=== PATIENT | female | born 1975 | race Caucasian/White ===

== ENCOUNTER 2024-12-04 23:39 | Emergency (ER) | payer OTHER, SELFPAY ==
--- NOTE | ~2024-12-04 | CT_ITS ---
CLINICAL HISTORY: left sided abd pain - PT REPORTED IV CONTRAST ALLERGY CT Abdomen and Pelvis WO Contrast COMPARISON: None provided FINDINGS: Detail limited by artifacts. Diffusely hypodense liver consistent with hepatic steatosis. Hepatomegaly. Normal spleen. Normal kidneys. Normal adrenal glands. Normal pancreas. Status post cholecystectomy. No abnormal biliary dilation. Colonic diverticulosis without evidence of acute diverticulitis. No mucosal thickening. No evidence of obstruction. Status post partial distal colectomy. Normal appendix. Unremarkable bladder. Unremarkable uterus. No ascites. No pneumoperitoneum. No lymphadenopathy. No acute fracture. Degenerative changes in the spine. Chronic appearing T12 compression fracture. No abdominal aortic aneurysm. Elevation of the right hemidiaphragm. IMPRESSION: No acute findings. Nonemergent/incidental findings above. This document has been electronically signed by: Jose Monroy MD on 12/05/2024 04:14:57
[2024-12-04 23:43] VITALS: BP 142/88; PULSE 102; O2SAT 96
[2024-12-04 23:47] VITALS: BP 105/71; PULSE 108; RESP 20; TEMP 36.9; O2SAT 94; BMI 28.3
--- NOTE | 2024-12-05 00:14 | ED.ABDPAIN ---
HPI - Abdominal Pain General Chief Complaint: Abdominal Pain Stated Complaint: LFT SIDED ABD PAIN FROM HEAVILY DRINKING Time Seen by Provider: 12/04/24 23:51 History of Present Illness HPI narrative: Patient is a 49-year-old female with a history of alcohol use. Previous history of abdominal surgery. Previous history of colon cancer status post resection in the past. Had alcohol tonight. Then had abdominal pain on the left side. Worse over the last few hours. No chance of being . No fever no chills. No diaphoresis. Patient is from home. Related Data Previous Rx's ?Medication ?Instructions ?Recorded dicyclomine 20 mg tablet 20 mg PO TID #10 tabs 12/05/24 prochlorperazine maleate 10 mg 10 mg PO Q8H PRN nausea and 12/05/24 tablet (Compazine) vomiting #14 tabs Allergies Allergy/AdvReac Type Severity Reaction Status Date / Time ciprofloxacin Allergy Unknown Verified 12/04/24 23:50 haloperidol (From Haldol) AdvReac Agitated Verified 12/05/24 07:32 Review of Systems Review of Systems No fever no chills. Positive left-sided abdominal pain. Decreased appetite but no vomiting Yes all other systems are reviewed and are negative PMFSH Past Medical History Attestation statement: The following information was validated with the patient. Social History Social History Smoked in Last 30 Days: Yes Use of substances other than those prescribed or required for medical reasons: No Advance Directives: No Advance Directives Information Provided: Yes Patient : No Physical Exam ED Exam Exam: Appearance: Alert. Oriented X3. No acute distress. Eyes: Pupils equal, round and reactive to light. ENT: Pharynx normal. Neck: Normal inspection. Neck supple. No lymph nodes noted. No crepitus CVS: Normal heart rate and rhythm. Pulses normal. Normal S1 and S2 Respiratory: No respiratory distress. Breath sounds normal. No Wheezing. No rales Abdomen: Soft, mild left-sided abdominal pain. No rigidity. No distention. good BS x4 Skin: Skin warm and dry. Normal skin color. Normal skin turgor. Extremities: No lower extremity edema. Neurovascular intact to all extremities. No Lacerations. No Rash Neuro: Oriented X 3. No motor deficit. No sensory deficit. Moving all extermities. No slurred speech Vital Signs: Vital Signs - 24 hr 12/04/24 23:47 12/05/24 01:46 12/05/24 07:03 Temperature 98.5 F 98.3 F 98.9 F Pulse Rate 108 H 107 H 113 H Respiratory Rate 20 18 20 Blood Pressure 105/71 105/53 L 124/89 Pulse Oximetry 94 93 93 Oxygen Delivery Method Room Air Room Air Room Air BMI result Body Mass Index 28.3 Medical Decision Making Medical Decision Making [facility] Narrative: Patient presented today with having left-sided abdominal pain. Complaining of nausea. Had a history of having bowel obstruction has a history of colon cancer status post resection over 10 years ago. Had a question C diff at [facility] about a month ago but reports no diarrhea today. Patient's lipase is 23 there is no evidence for pancreatitis. LFTs are normal. Patient had a strong smell of alcohol. I did an alcohol level it was over 300. Patient denies any fever chills. Complains that she had an allergy to IV contrast. We then changed the CT to a noncontrast study. Currently in stable condition awaiting CT scan of the abdomen 7:16 AM 12/05/2024 (Dr. Jackie Alejandro, D.O.) patient with continued pain but her workup today has been reassuring. No evidence of sepsis. No evidence of anemia. She reports that she had severe pain when she was diagnosed with colon cancer and had normal imaging at that time. However, today, patient has no evidence of large mass in the colon and has been tolerating oral intake. She is still intoxicated but has been metabolizing overnight. She is tachycardic but very anxious. I think she is starting to withdraw from alcohol to be on a. We will medicate with Haldol, Benadryl and Dilaudid. I anticipate that she will be discharged to follow up with her cancer doctors in [place]. Discussed importance of follow-up and strict return precautions. Discharged in stable condition. Differential Diagnosis Differential Diagnoses: The differential diagnosis associated with the presentation includes Small-bowel obstruction, abscess, perforation, diverticulitis, EtOH Admission/Observation Consideration of admission/observation: Escalation of care including admission/observation considered Lab Data [facility] Lab Attestation statement: I reviewed the patient's lab results. 12/05/24 00:53 12/05/24 00:53 Labs: Lab Results 12/05/24 12/05/24 Range/Units 00:53 02:43 WBC 4.0 L (4.8-10.8) X10*3/uL RBC 3.53 L (4.20-5.50) X10*6/uL Hgb 11.0 L (12.0-16.0) g/dl Hct 32.6 L (37.0-47.0) % MCV 92.4 (80.0-98.0) fL MCH 31.2 (27.0-33.0) pg MCHC 33.7 (31.0-35.0) g/dl RDW 14.3 (11.0-16.0) % Plt Count 241 (160-400) X10*3/uL MPV 9.2 L (9.4-12.3) fL Immature Gran % (Auto) 0.0 (0.0-0.4) % Neut % (Auto) 30.1 L (45-73) % Lymph % (Auto) 55.4 H (20-40) % [place] % (Auto) 11.5 H (2-11) % Eos % (Auto) 2.0 (0-4) % Baso % (Auto) 1.0 (0-2) % Lymph # (Auto) 2.2 (1.2-4.9) X10*3/uL [place] # (Auto) 0.5 (0.1-1.2) X10*3/uL Eos # (Auto) 0.1 (0.0-0.4) X10*3/uL Baso # (Auto) 0.0 (0.0-0.2) X10*3/uL Abs Immat Gran (auto) 0.00 (0.00-0.03) X10*3/uL Absolute Neuts (auto) 1.2 L (2.0-8.3) x10*3/uL Absolute Nucleated RBC 0.000 (0.0-0.012) X10*3/uL Nucleated RBC % (auto) 0.0 (0.0-0.2) /100WBC Sodium 145 (135-145) mmol/L Potassium 4.7 (3.3-5.1) mmol/L Chloride 106 (96-108) mmol/L Carbon Dioxide 25 (22-29) mmol/L Anion Gap 19 (12-20) BUN 8 L (9-16) mg/dL Creatinine 0.68 (0.5-1.4) mg/dL Estim Creat Clear Calc 101.6 Estimated GFR > 60 Random Glucose 105 (60-115) mg/dL Calcium 8.8 (8.4-10.2) mg/dL Total Bilirubin 0.2 (0.0-1.0) mg/dL Direct Bilirubin < 0.2 (0.0-0.5) mg/dL AST 105 H (5-31) U/L ALT 44 H (0-31) U/L Alkaline Phosphatase 72 (39-117) U/L Total Protein 8.0 (6.5-8.0) g/dL Albumin 4.3 (3.5-5.0) g/dL Lipase 23 (8-78) U/L Beta HCG, Quant < 2 mIU/mL Urine Color Yellow Urine Appearance Clear Urine pH 5.5 (5.0-9.0) Ur Specific [place] 1.015 (1.005-1.025) Urine Protein Negative (Neg-Trace) mg/dL Urine Glucose (UA) Negative (Negative) mg/dL Urine Ketones Negative (Negative) mg/dL Urine Blood Negative (Negative) Urine Nitrite Negative (Negative) Ur Leukocyte Esterase Negative (Negative) Urine RBC 0-2 (0-2) /HPF Urine WBC 0-5 (0-5) /HPF Ur Squamous Epith Cells 3-5 (0-2) /HPF Urine Bacteria None Seen (None Seen) Hyaline Casts 0-2 (0-2) /LPF Ethyl Alcohol 312 H* mg/dL Medications Administered Discontinued Medications Generic Name Dose Route Start Last Admin Trade Name Freq PRN Reason Stop Dose Admin Hydromorphone HCl 0.5 mg 12/05/24 00:12 12/05/24 00:57 Hydromorphone Hcl 0.5 Mg/0.5 Ml Syringe IVPUSH 12/05/24 00:13 0.5 mg ONCE ONE Administration Protocol Hydromorphone HCl 0.5 mg 12/05/24 01:34 12/05/24 01:43 Hydromorphone Hcl 0.5 Mg/0.5 Ml Syringe IVPUSH 12/05/24 01:35 0.5 mg ONCE ONE Administration Protocol Sodium Chloride 1,000 mls @ 999 mls/hr 12/05/24 00:15 12/05/24 05:11 Ns IV 12/05/24 01:15 Infused .Q1H1M GLADYS Infusion Sodium Chloride 1,000 mls @ 999 mls/hr 12/05/24 00:15 12/05/24 05:53 Ns IV 12/05/24 01:15 Infused .Q1H1M GLADYS Infusion Ondansetron HCl 4 mg 12/05/24 00:12 12/05/24 00:57 Ondansetron Hcl 4 Mg/2 Ml Vial IVPUSH 12/05/24 00:13 4 mg ONCE ONE Administration Discharge Plan Discharge Clinical Impression: Alcohol intoxication, Acute bilateral lower abdominal pain Patient Disposition: Home, Self-Care Instructions: Abdominal Pain (ED) Additional Instructions: DIAGNOSIS & TREATMENT: You were seen in the Emergency Department for your abdominal pain. We performed laboratory work and a CT scan of your abdomen and pelvis which did not reveal any acute abnormalities that would explain your symptoms. FURTHER CARE: We have not found any emergent physical exam or lab abnormalities that would require admission to the hospital today. Many people who come to the ER with abdominal pain do not leave with a specific diagnosis at the end of their visit. In the Emergency Department we try to make sure that there is no emergent problem that needs surgery or antibiotics right now. This does not mean that your evaluation is complete--please be sure to follow up with your regular doctor as additional testing as an outpatient may be indicated Please be certain to drink plenty of fluids over the next several. You should advance your diet as tolerated. You may wish to start with the BRAT diet (bananas, rice, applesauce, toast). WHEN YOU SHOULD BE SEEN NEXT: Please follow-up with your oncologist in [place] within the next 2-3 days for reevaluation of your symptoms. WHEN TO RETURN TO THE ED: Monitor your symptoms closely and return to the emergency department immediately for any new/worsening symptoms, worsening abdominal pain, pain which changes location (particularly if it moved to the right lower quadrant), nausea, vomiting, blood in your stool, black/tarry stools, chest pain, shortness of breath, fevers, chills, night sweats, you are unable to arrange follow-up care, or any other concerning symptoms. Prescriptions: New dicyclomine 20 mg tablet 20 mg PO TID Qty: 10 0RF prochlorperazine maleate [Compazine] 10 mg tablet 10 mg PO Q8H PRN (Reason: nausea and vomiting) Qty: 14 0RF Print Language: Choose Not To Answer
--- OUTSIDE RECORDS SUMMARY | 2024-12-05 00:48 | XMS_ITS | Clinical Summary ---
Author Organization [facility] Address [address] [place] [address] Phone Care Team Providers Care Day Haul Youth Supervisor Name Role Phone Alex Montesinos MD Primary Care Provider [phone] Allergies Active Allergy Reactions Criticality Noted Date Comments Bee Venom Protein (Honey Bee) 2024 Ciprofloxacin Anaphylaxis High 03/08/2024 Iodinated Contrast Media Rash Low 06/14/2024 Ketorolac Hives Medium 06/14/2024 Latonia 09/05/2024 Medications acamprosate (CAMPRAL) 333 mg EC tablet Take 2 tablets (666 mg total) by mouth 3 (three) times a day. 5 Active gabapentin (NEURONTIN) 800 mg tablet Take 1 tablet (800 mg total) by mouth 3 (three) times a day. 5 Active thiamine 100 mg tablet Take 1 tablet (100 mg total) by mouth 1 (one) time each day. 2 Active amLODIPine (NORVASC) 10 mg tablet Take 1 tablet (10 mg total) by mouth 1 (one) time each day. 5 Active naloxone (NARCAN) 4 mg/0.1 mL nasal sprayIndications :opioid overdose,opioid- induced respiratory depression Administer 1 each (4 mg total) into affected nostril(s) if needed for opioid reversal or respiratory depression. Give 4 mg (1 spray) into one nostril. May repeat every 2-3 minutes if needed, alternating nostrils, until medical assistance becomes available. 2 each 5 06/10/19 26 Active famotidine (PEPCID) 20 mg tablet Take 1 tablet (20 mg total) by mouth 1 (one) time each day. 25 tablet 10/05/19 26 Active Additional Information Patient not taking.Reported on 10/06/2024 folic acid (FOLVITE) 1 mg tablet Take 1 tablet (1 mg total) by mouth 1 (one) time each day. Active cyanocobalamin (VITAMIN B-12) 100 mcg tablet Take 1 tablet (100 mcg total) by mouth 1 (one) time each day. Active pyridoxine (B-6) 50 mg tablet Take 1 tablet (50 mg total) by mouth 1 (one) time each day. Active Active Problems Problem Noted Date Diagnosed Date Hypomagnesemia 10/06/2024 C. difficile colitis 10/06/2024 Epigastric pain 06/25/2024 Pancolitis 06/15/2024 Clostridium difficile colitis 06/14/2024 Acute lactic acidosis 06/06/2024 Metabolic acidosis 03/27/2024 Encounters Date Type Department Care Team Description 10/10/2024 3:12 AM EDT - 10/10/2024 6:17 AM EDT Emergency [facility] Emergency [address] [place] [phone] Discharge Disposition: Home or Self Care 10/06/2024 4:18 AM EDT - 10/06/2024 12:24 PM EDT Hospital Encounter [facility] Emergency [address] [place] [phone] Emeterio Bautista MD Kela, Kashyap Devendrabhai, MD C. difficile colitis (Primary Dx); Hypomagnesemia; Hypokalemia; Intractable abdominal pain; Intractable nausea and vomiting Discharge Disposition: Left Against Medical Advice 10/04/2024 3:47 AM EDT - 10/04/2024 9:35 AM EDT Emergency [facility] Emergency [address] [place] [phone] Emeterio Bautista MD Mersier, Jasmine, DO RUQ abdominal pain (Primary Dx) Discharge Disposition: Home or Self Care 09/05/2024 3:35 AM EDT - 09/05/2024 8:40 AM EDT Emergency [facility] Emergency [address] [place] [phone] Epigastric pain (Primary Dx); Nausea and vomiting, unspecified vomiting type; Alcohol abuse Discharge Disposition: Left Against Medical Advice from Last 3 Months Surgical History Surgery Date Site/Laterality Comments COLON SURGERY CHOLECYSTECTOMY COLECTOMY Medical History Medical History Date Comments Colon cancer (CMS/HCC V24, CMS/HCC V28) Fatty liver Alcoholic peripheral neuropathy ([facility] V24) Hypertension Alcohol use disorder Hypomagnesemia Chronic lower back pain Anxiety and depression Insomnia C. difficile colitis Recurrent Family History Medical History Relation Name Comments Breast cancer Mother Colon cancer Other Pancreatic cancer Other Brain cancer Sister Relation Name Status Comments Mother Other Sister Social History Tobacco Use Types Packs/Day Years Used Date Smoking Tobacco: Never Smokeless Tobacco: Never Tobacco Cessation:Counseling Given: Not Answered Alcohol Use Standard Drinks/Week Comments Yes 42 (1 standard drink = 0.6 oz pu re alcohol) 5 nips daily Interpersonal Safety Answer Date Record ed Physical Abuse Unrecognized value 06/25/2024 Verbal Abuse Unrecognized value 06/25/2024 Comments Unknown Sex and Gender Information Value Date Recorded Sex Assigned at Female 03/08/2024 8:39 PM EST Legal Sex Female 7:36 PM EST Gender Identity Female 03/08/2024 8:39 PM EST Sexual Orientation Straight 03/08/2024 8: 39 PM EST Obstetrics History Last Filed Vital Signs Vital Sign Reading Time Taken Comments Blood Pressure 109/96 10/10/2024 3:22 AM EDT Pulse 122 10/10/2024 3:22 AM EDT Temperature 36.9 C (98.4 F) 10/06/2024 8:11 AM EDT Respiratory Rate 18 10/10/2024 3:22 AM EDT Oxygen Saturation 97% 10/10/2024 3:22 AM EDT Inhaled Oxygen Concentration - - Weight 72.6 kg (160 lb) 10/10/2024 3:22 AM EDT Height 165.1 cm (5' 5 ) 10/10/2024 3:22 AM EDT Body Mass Index 26.63 10/10/2024 3:22 AM EDT Plan of Treatment Health Maintenance Due Date Last Done Comments Breast Cancer Screening 1974 DTaP,Tdap,and Td Vaccines (1 - Tdap) 1993 Hepatitis A Vaccines (1 of 2 - Risk 2-dose series) 1993 Hepatitis B Vaccines (1 of 3 - 19+ 3-dose series) 1993 Pneumococcal Vaccine: 50+ Years (1 of 2 - PCV) 1993 Zoster Vaccines (1 of 2) 1993 Cervical Cancer Screening: Pap Smear 08/16/1995 COVID-19 Vaccine (2 - Pfizer risk series) 07/19/2020 06/28/2020 Depression Screening 02/23/2024 Cholesterol Screening (Lipid Panel) 03/09/2024 10/28/2013 Colorectal Cancer Screening: Sigmoidoscopy 03/09/2024 HIV Screening 03/09/2024 Hepatitis C Screening 03/09/2024 Social Influencers of Health Screening 03/09/2024 Influenza Vaccine (#1) 2024 Hypertension/CHF/CAD Annual BMP Blood Test 10/06/2025 10/06/2024, 10/04/2024, 09/05/2024, Additional history exists RSV Immunization Adult Patients (1 - 1-dose 75+ series) 2049 HIB Vaccines Aged Out No longer eligi ble based on patient's age to complete this topic HPV Vaccines Aged Out No longer eligi ble based on patient's age to complete this topic IPV Vaccines Aged Out No longer eligi ble based on patient's age to complete this topic MMR Vaccines Aged Out No longer eligi ble based on patient's age to complete this topic Meningococcal ACWY Vaccine Aged Out N o longer eligible based on patient's age to complete this topic Meningococcal B Vaccine Aged Out No l onger eligible based on patient's age to complete this topic RSV Immunization Patients Under 20 months Aged Out No longer eligible based on patient's age to complete this topic Varicella Vaccines Aged Out No longer eligible based on patient's age to complete this topic Procedures Procedure Name Priority Date/Time Associated Diagnosis Comments URINALYSIS WITH REFLEX MICROSCOPIC STAT 10/06/2024 10:01 AM EDT URINALYSIS WITH REFLEX MICROSCOPIC STAT 10/06/2024 10:01 AM EDT ETHANOL Add-On 10/06/2024 5:02 AM EDT LACTATE, WITH REFLEX STAT 10/06/2024 5:02 AM EDT MAGNESIUM STAT 10/06/2024 5:02 AM EDT LIPASE STAT 10/06/2024 5:02 AM EDT COMPREHENSIVE METABOLIC PANEL STAT 10/06/2024 5:02 AM EDT CBC WITH AUTO DIFFERENTIAL STAT 10/06/2024 5:02 AM EDT CBC AND DIFFERENTIAL STAT 10/06/2024 5:02 AM EDT NE CRITICAL CARE 30-74 MINUTES Routine 10/06/2024 1:[address] ABDOMEN PELVIS W CONTRAST STAT 10/04/2024 7:41 AM EDT HCG, SERUM, QUALITATIVE STAT Add-on 10/04/2024 4:23 AM EDT CBC WITH AUTO DIFFERENTIAL STAT 10/04/2024 4:23 AM EDT CBC AND DIFFERENTIAL STAT 10/04/2024 4:23 AM EDT COMPREHENSIVE METABOLIC PANEL STAT 10/04/2024 4:23 AM EDT MAGNESIUM STAT 10/04/2024 4:23 AM EDT LIPASE STAT 10/04/2024 4:23 AM EDT LACTATE, WITH REFLEX STAT 10/04/2024 4:23 AM EDT ECG ANNOTATED 09/06/2024 DRUG ABUSE SCREEN 8A PANEL, URINE STAT 09/05/2024 5:43 AM EDT URINALYSIS WITH REFLEX MICROSCOPIC STAT 09/05/2024 5:29 AM EDT URINALYSIS WITH REFLEX MICROSCOPIC STAT 09/05/2024 5:29 AM EDT POC , URINE DIAGNOSTIC STAT 09/05/2024 5:28 AM EDT ECG 12-LEAD STAT 09/05/2024 4:57 AM EDT ETHANOL Add-On 09/05/2024 4:07 AM EDT D-DIMER Add-On 09/05/2024 4:07 AM EDT AMMONIA STAT 09/05/2024 4:07 AM EDT LACTATE, WITH REFLEX STAT 09/05/2024 4:07 AM EDT PROTHROMBIN TIME WITH INR STAT 09/05/2024 4:07 AM EDT CBC WITH AUTO DIFFERENTIAL STAT 09/05/2024 4:07 AM EDT TYPE AND SCREEN STAT 09/05/2024 4:07 AM EDT LIPASE STAT 09/05/2024 4:07 AM EDT COMPREHENSIVE METABOLIC PANEL STAT 09/05/2024 4:07 AM EDT CBC AND DIFFERENTIAL STAT 09/05/2024 4:07 AM EDT from Last 3 Months Results * Urinalysis with reflex microscopic (10/06/2024 10:01 AM EDT) Only the most recent of2 resultswithin the time period is included. Specific Lucile Urine 1.024 1.003 - 1.030 LAB URINALYSIS - AUTOMATED METHOD 10/06/2024 10:41 AM EDT [facility] pH, Urine 5.5 5.0 - 8.0 pH LAB URINALYSIS - AUTOMATED METHOD 10/06/2024 10:41 AM EDT [facility] Leukocytes, Urine Negative Negative LAB URINALYSIS - AUTOMATED METHOD 10/06/2024 10:41 AM [facility] Nitrite, Urine Negative Negative LAB URINALYSIS - AUTOMATED METHOD 10/06/2024 10:41 AM [facility] Protein, Urine Negative <=Trace mg/dL LAB URINALYSIS - AUTOMATED METHOD 10/06/2024 10:41 AM [facility] Glucose, Urine Negative Negative mg/dL LAB URINALYSIS - AUTOMATED METHOD 10/06/2024 10:41 AM [facility] Ketones, Urine Negative Negative mg/dL LAB URINALYSIS - AUTOMATED METHOD 10/06/2024 10:41 AM [facility] Urobilinogen, Urine 0.2 0.2 - 1.0 mg/dL LAB URINALYSIS - AUTOMATED METHOD 10/06/2024 10:41 AM [facility] Bilirubin, Urine Negative Negative LAB URINALYSIS - AUTOMATED METHOD 10/06/2024 10:41 AM [facility] Blood, Urine Negative Negative LAB URINALYSIS - AUTOMATED METHOD 10/06/2024 10:41 AM [facility] Urine Urine specimen obtained by clean catch procedure / Unknown Non-blood Collection / Unknown 10/06/2024 10:01 AM EDT 10/06/2024 10:30 AM EDT us Ileana VIERA LAB URINE ORDERABLES Fin al Result [facility] [address] [place] [address], * Lactate, with Reflex (10/06/2024 5:02 AM EDT) Only the most recent of3 resultswithin the time period is included. LACTIC ACID 1.3 0.4 - 2.0 mmol/L LAB CHEMISTRY METHOD 10/06/2024 6:19 AM EDT [facility] Blood Venous blood specimen / Unknown Venipuncture / Unknown 10/06/2024 5:02 AM EDT 10/06/2024 5:18 AM EDT us Emeterio Bautista MD LAB BLOOD ORDERABLES Final R esult [facility] [address] [place] [address], * (ABNORMAL) CBC auto differential (10/06/2024 5:02 AM EDT) Only the most recent of3 resultswithin the time period is included. WBC 7.1 4.8 - 10.8 K/mcL LAB HEMETOLOGY METHOD 10/06/2024 6:21 AM [facility] RBC 3.90 3.80 - 4.80 M/mcL LAB HEMETOLOGY METHOD 10/06[facility]24 [facility] Hemoglobin 12.3 11.5 - 16.0 g/dL LAB HEMETOLOGY METHOD 10/06/2024 6:21 AM [facility] Hematocrit 36.5 35.0 - 47.0 % LAB HEMETOLOGY METHOD 10/06/2024 6:21 AM [facility] MCV 94.3 79.0 - 98.0 FL LAB HEMETOLOGY METHOD 10/06/2024 6:21 AM [facility] MCH 31.8 27.0 - 32.0 pcg LAB HEMETOLOGY METHOD 10/06/2024 6:21 AM [facility] MCHC 33.7 32.0 - 37.0 g/dL LAB HEMETOLOGY METHOD 10/06/2024 6:21 AM [facility] RDW 16.5(H) 11.0 - 15.0 % LAB HEMETOLOGY METHOD 10/06/2024 6:21 AM [facility] Platelets 196 130 - 400 K/mcL LAB HEMETOLOGY METHOD 10/06/2024 6:21 AM [facility] Comment:reviewed by slide MPV 10.4 7.0 - 11.0 FL LAB HEMETOLOGY METHOD 10/06/2024 6:21 AM [facility] NRBC 0.0 <1.0 % LAB HEMETOLOGY METHOD 10/06/2024 6:21 AM [facility] NRBC Absolute 0.00 <0.10 K/mcL LAB HEMETOLOGY METHOD 10/06/2024 6:21 AM [facility] Neutrophils Relative 67.6 % LAB HEMETOLOGY METHOD 10/06/2024 6:21 AM [facility] Lymphocytes Relative 22.3 % LAB HEMETOLOGY METHOD 10/06/2024 6:21 AM [facility] Monocytes Relative 6.4 % LAB HEMETOLOGY METHOD 10/06/2024 6:21 AM [facility] Eosinophils Relative 2.1 % LAB HEMETOLOGY METHOD 10/06/2024 6:21 AM [facility] Basophils Relative 0.8 % LAB HEMETOLOGY METHOD 10/06/2024 6:21 AM [facility] Immature Granulocytes Relative 0.8 % LAB HEMETOLOGY METHOD 10/06/2024 6:21 AM [facility] Neutrophils Absolute 4.82 1.50 - 7.00 K/mcL LAB HEMETOLOGY METHOD 10/06/2024 6:21 AM [facility] Lymphocytes Absolute 1.59 1.00 - 5.00 K/mcL LAB HEMETOLOGY METHOD 10/06/2024 6:21 AM [facility] Monocytes Absolute 0.46 0.20 - 1.00 K/mcL LAB HEMETOLOGY METHOD 10/06/2024 6:21 AM EDT [facility] Eosinophils Absolute 0.15 0.00 - 0.50 K/[facility] LAB HEMETOLOGY METHOD 10/06/2024 6:21 AM EDT [facility] Basophils Absolute 0.06 0.00 - 0.20 K/[facility] LAB HEMETOLOGY METHOD 10/06/2024 6:21 AM EDT [facility] Immature Granulocytes Absolute 0.06(H) 0.00 - 0.03 K/[facility] LAB HEMETOLOGY METHOD 10/06/2024 6:21 AM EDT [facility] Blood Venous blood specimen / Unknown Venipuncture / Unknown 10/06/2024 5:02 AM EDT 10/06/2024 5:18 AM EDT Ileana VIERA LAB BLOOD ORDERABLES Fin al Result Performing Organization Address City/[facility]/ZIP Co de Phone Number [facility] [address] [place] [address], [place] [phone] * (ABNORMAL) Magnesium (10/06/2024 5:02 AM EDT) Only the most recent of2 resultswithin the time period is included. Magnesium 1.1(L) 1.9 - 2.6 mg/dL LAB CHEMISTRY METHOD 10/06/2024 5:59 AM EDT [facility] Blood Venous blood specimen / Unknown Venipuncture / Unknown 10/06/2024 5:02 AM EDT 10/06/2024 5:18 AM EDT Ileana VIERA LAB BLOOD ORDERABLES Fin al Result [facility] [address] [place] [address], [place] [phone] * Lipase (10/06/2024 5:02 AM EDT) Only the most recent of3 resultswithin the time period is included. Lipase 50 13 - 75 unit/L LAB CHEMISTRY METHOD 10/06/2024 5:59 AM EDT [facility] Blood Venous blood specimen / Unknown Venipuncture / Unknown 10/06/2024 5:02 AM EDT 10/06/2024 5:18 AM EDT Ileana Slaughter PA LAB BLOOD ORDERABLES Fin al Result Performing Organization Address [facility] Co de Phone Number [facility] [address] [place] [address], [place] [phone] * Ethanol (10/06/2024 5:02 AM EDT) Only the most recent of2 resultswithin the time period is included. Ethanol Level <3 0 - 10 mg/dL LAB CHEMISTRY METHOD 10/06/2024 8:10 AM EDT [facility] Blood Venous blood specimen / Unknown Venipuncture / Unknown 10/06/2024 5:02 AM EDT 10/06/2024 5:18 AM EDT Brunilda Fischer [employer] LAB BLOOD ORDERABLES Final Res ult Performing Organization Address [facility]/ZIP Co de Phone Number [facility] [address] [place] [address], [place] [phone] * (ABNORMAL) Comprehensive Metabolic Panel (CMP) (10/06/2024 5:02 AM EDT) Only the most recent of3 resultswithin the time period is included. Sodium 142 133 - 145 mmol/L LAB CHEMISTRY METHOD 10/06/2024 6:19 AM EDT [facility] Potassium 3.2(L) 3.5 - 5.5 mmol/L LAB CHEMISTRY METHOD 10/06/2024 6:19 AM EDT [facility] Chloride 113(H) 96 - 110 mmol/L LAB CHEMISTRY METHOD 10/06/2024 6:19 AM [facility] CO2 22 21 - 32 mmol/L LAB CHEMISTRY METHOD 10/06/2024 6:19 AM [facility] Anion Gap 7 3 - 11 LAB CHEMISTRY METHOD 10/06/2024 6:19 AM [facility] Glucose 90 70 - 100 mg/dL LAB CHEMISTRY METHOD 10/06/2024 6:19 AM [facility] BUN 6 5 - 25 mg/dL LAB CHEMISTRY METHOD 10/06/2024 6:19 AM [facility] Creatinine 0.29(L) 0.50 - 1.10 mg/dL LAB CHEMISTRY METHOD 10/06/2024 6:19 AM [facility] eGFR 130 >=60 mL/min/1. 73m2 LAB CHEMISTRY METHOD 10/06/2024 6:19 AM [facility] Comment:Calculation based on the Chronic Kidney Disease Epidemiology Collaboration (CKD-EPI) equation refit without adjustment for race. BUN/Creatinine Ratio 20.7 LAB CHEMISTRY METHOD 10/06/2024 6:19 AM [facility] Calcium 6.3(L) 8.5 - 10.5 mg/dL LAB CHEMISTRY METHOD 10/06/2024 6:19 AM [facility] AST (SGOT) 45(H) 10 - 42 unit/L LAB CHEMISTRY METHOD 10/06/2024 6:19 AM [facility] ALT (SGPT) 31 10 - 60 unit/L LAB CHEMISTRY METHOD 10/06/2024 6:19 AM [facility] Alkaline Phosphatase 55 42 - 121 unit/L LAB CHEMISTRY METHOD 10/06/2024 6:19 AM [facility] Total Protein 5.5(L) 6.0 - 8.0 g/dL LAB CHEMISTRY METHOD 10/06/2024 6:19 AM EDT [facility] Albumin 2.5(L) 3.2 - 5.0 g/dL LAB CHEMISTRY METHOD 10/06/2024 6:19 AM EDT [facility] Total Bilirubin 0.3 0.0 - 1.4 mg/dL LAB CHEMISTRY METHOD 10/06/2024 6:19 AM EDT [facility] Blood Venous blood specimen / Unknown Venipuncture / Unknown 10/06/2024 5:02 AM EDT 10/06/2024 5:18 AM EDT us Ileana VIERA LAB BLOOD ORDERABLES Fin al Result [facility] [address] [place] [address], * NE CRITICAL CARE 30-74 MINUTES (10/06/2024 1:07 AM EDT) Narrative Emeterio Bautista MD - 10/06/2024 1:07 AM EDT Emeteiro Bautista MD 10/06/2024 6:26 AM Critical Care Performed by: Emeterio Bautista MD Authorized by: Emeterio Bautista MD Critical care provider statement: Critical care time (minutes): 35 Total face to face critical care time (minutes): 20 Critical care time was exclusive of: Separately billable procedures and treating other patients Critical care was necessary to treat or prevent imminent or life-threatening deterioration of the following conditions: Metabolic crisis and circulatory failure Critical care was time spent personally by me on the following activities: Development of treatment plan with patient or surrogate, ordering and performing treatments and interventions, ordering and review of laboratory studies, ordering and review of radiographic studies and review of old charts Face to face critical care was time spent personally by me on the following activities: Evaluation of patient's response to treatment, examination of patient and re-evaluation of patient's condition I assumed direction of critical care for this patient from another provider in my specialty: no Care discussed with: admitting provider Comments: Hypokalemia and hypomagnesemia requiring IV repletion us Emeterio Bautista MD IN CLINIC/BEDSIDE ORDERABLES Final Result * CT Abdomen Pelvis w Contrast (10/04/2024 7:41 AM EDT) Anatomical Region Laterality Modality Body Computed Tomogra phy 10/04/2024 7:58 AM EDT Impressions 10/04/2024 8:05 AM EDT Impression: 1. No colon wall thickening or pericolonic fat stranding to confirm acute colitis. 2. Mild circumferential low-density wall thickening of the gastric antrum compatible with nonspecific [place] ([id number]) -------- FINAL REPORT -------- Dictated By: Balbina Sparks Dictated Date: 10/04/2024 07:58 ET Assigned Physician: Balbina Sparks Reviewed and Electronically Signed By: Balbina Sparks Signed Date: 10/04/2024 08:05 ET Workstation ID: [id number] Transcribed By: Self Edit Transcribed Date: 10/04/2024 07:58 ET Narrative 10/04/2024 8:05 AM EDT History: Right-sided abdominal pain. Diarrhea. Known C. difficile infection. Comparison: 06/25/24 Technique: Helical volumetric imaging of the abdomen and pelvis was performed during the uneventful intravenous administration of 90 cc Isovue-370. DLP: 1169.72 mGy/cm [employer] VCT Iterative reconstruction technique Findings: The left hepatic lobe remains small, with a lobulated contour. No hepatic masses are seen. The portal vein is patent. Cholecystectomy sequela are noted. No evidence of biliary obstruction is seen. The spleen, pancreas and adrenal glands are unremarkable. The kidneys are normal in position and size, with symmetric, intact nephrograms and no evidence of hydronephrosis or mass. No ascites is seen. There is no developing lymphadenopathy. The uterus appears unremarkable for age. The urinary bladder is normal. No evidence of bowel obstruction is identified. Sigmoid colectomy sequela are again noted, with a patent colocolic anastomosis in the pelvis. There is a patent antra enteric anastomosis in the pelvis also. There are scattered colonic diverticula. The appendix is normal in caliber, retrocecal. No abnormal perienteric or pericolonic fat stranding is identified. The stomach is distended with fluid and debris. There is low density circumferential wall thickening of the distal gastric antrum, with mucosal hyperenhancement, suggesting nonspecific gastritis. The perigastric fat is preserved. There is mild focal depression of the central superior endplate of L3, unchanged. Procedure Note Balbina Sparks MD - 10/04/2024 History: Right-sided abdominal pain. Diarrhea. Known C. difficileinfection. Comparison: 06/25/24 Technique: Helical volumetric imaging of the abdomen and pelvis wasperformed during the uneventful intravenous administration of 90 ccIsovue-370. DLP: 1169.72 mGy/cm ZapleeT Iterative reconstruction technique Findings: The left hepatic lobe remains small, with a lobulated contour. No hepaticmasses are seen. The portal vein is patent. Cholecystectomy sequela arenoted. No evidence of biliary obstruction is seen. The spleen, pancreas and adrenal glands are unremarkable. The kidneys are normal in position and size, with symmetric, intactnephrograms and no evidence of hydronephrosis or mass. No ascites is seen. There is no developing lymphadenopathy. The uterusappears unremarkable for age. The urinary bladder is normal. No evidence of bowel obstruction is identified. Sigmoid colectomy sequelaare again noted, with a patent colocolic anastomosis in the pelvis. Thereis a patent antra enteric anastomosis in the pelvis also. There arescattered colonic diverticula. The appendix is normal in caliber,retrocecal. No abnormal perienteric or pericolonic fat stranding isidentified. The stomach is distended with fluid and debris. There is low densitycircumferential wall thickening of the distal gastric antrum, with mucosalhyperenhancement, suggesting nonspecific gastritis. The perigastric fat ispreserved. There is mild focal depression of the central superior endplate of L3,unchanged. IMPRESSION: Impression: 1. No colon wall thickening or pericolonic fat stranding to confirm acutecolitis. 2. Mild circumferential low-density wall thickening of the gastric antrumcompatible with [place] ([id number]) -------- FINAL REPORT -------- Dictated By: Balbina Sparks Dictated Date: 10/04/2024 07:58 ET Assigned Physician: Balbina Sparks Reviewed and Electronically Signed By: Balbina Sparks Signed Date: 10/04/2024 08:05 ET Workstation ID: [id number] Transcribed By: Self Edit Transcribed Date: 10/04/2024 07:58 ET Emeterio Bautista MD IMG CT PROCEDURES Final Resu lt * hCG, serum, qualitative (10/04/2024 4:23 AM EDT) [facility] hCG Qual Negative Negative 10/04/2024 6:15 AM EDT [facility] Blood Venous blood specimen / Unknown Venipuncture / Unknown 10/04/2024 4:23 AM EDT 10/04/2024 5:11 AM EDT Emeterio Bautista MD LAB BLOOD ORDERABLES Final R esult [facility] [address] [place] [address], * ECG-Annotated (09/06/2024) Provider Onbase ECG ORDERABLES Final Result * (ABNORMAL) Drug abuse screen 8a panel, urine (09/05/2024 5:43 AM EDT) [facility] Amphetamine Screen, Ur Negative Negative LAB CHEMISTRY METHOD 5 6:45 AM EDT [facility] Comment:Certain OTC medicati ons containing ephedrine, phenylephrine, pseudoephedrine and phenylpropanolamine can cause false positive results. Barbiturate Screen, Ur Negative Negative LAB CHEMISTRY METHOD 5 6:45 AM EDT [facility] Benzodiazepine Screen, Ur Negative Negative LAB CHEMISTRY METHOD 5 6:45 AM EDT [facility] Cocaine Screen, Ur Negative Negative LAB CHEMISTRY METHOD 5 6:45 AM EDT [facility] Opiate Screen, Ur Positive(A ) Negative LAB CHEMISTRY METHOD 5 6:45 AM EDT [facility] Cannabinoid (THC) Screen, Ur Negative Negative LAB CHEMISTRY METHOD 5 6:45 AM EDT [facility] Comment:Specimens from patie nts taking pantoprazole sodium (Protonix) have been shown to produce false positive results. Oxycodone Screen, Ur Negative Negative LAB CHEMISTRY METHOD 5 6:45 AM EDT [facility] Fentanyl, Ur Negative Negative LAB CHEMISTRY METHOD 5 6:45 AM EDT [facility] Urine Urine specimen obtained by clean catch procedure / Unknown Non-blood Collection / Unknown 09/05/2024 5:43 AM EDT 09/05/2024 6:02 AM EDT Narrative [facility] - 09/05/2024 6:45 AM EDT Assay cutoffs: Amphetamines 1000 ng/mL Barbiturates 200 ng/mL Benzodiazepines 200 ng/mL Cocaine 300 ng/mL Fentanyl 1 ng/mL Opiates 300 ng/mL Oxycodone 100 ng/mL THC 50 ng/mL Semi-quantitative assay for screening purposes only. Unconfirmed screening result should not be used for non-medical purposes. *ALTERNATE METHOD CONFIRMATION DONE UPON REQUEST ONLY* Ileana VIERA LAB URINE ORDERABLES Fin al Result [facility] [address] [place] [address], * POC , urine manually resulted (09/05/2024 5:28 AM EDT) HCG, Ur POC Negative Negative POC hCG Int QC Pass? Yes Yes Urine Urine specimen obtained by clean catch procedure / Unknown 09/05/2024 5:28 AM EDT Emeterio Bautista MD POINT OF CARE TEST ENTER/ALDEN T ORDERABLES Final Result * ECG 12 lead (09/05/2024 4:57 AM EDT) Pathologist [facility] Ventricular Rate ECG 111 BPM GEMUSE Atrial Rate 111 BPM GEMUSE P-R Interval 118 ms GEMUSE QRS Duration 72 ms GEMUSE Q-T Interval 328 ms GEMUSE QTc 446 ms GEMUSE P Wave [place] 72 degrees GEMUSE R [place] 43 degrees GEMUSE T [place] 53 degrees GEMUSE ECG Interpretation Sinus tachycardia Otherwise normal ECG When compared with ECG of 25-JUN-2024 06:16, No significant change was found Confirmed by James GLEASON YUFENG ([id number]) on 09/05/2024 7:13:06 PM GEMUSE 09/05/2024 4:57 AM EDT 09/05/2024 7:13 PM EDT Ileana VIERA ECG ORDERABLES Final Re sult Performing Organization Address City/[facility]/ZIP Co de Phone Number GEMUSE * Protime-INR (09/05/2024 4:07 AM EDT) [facility] Protime 11.2 10.6 - 13.9 sec LAB COAGULATION METHOD 09/05/2024 5:01 AM EDT [facility] INR 0.9 LAB COAGULATION METHOD 09/05/2024 5:01 AM EDT [facility] Blood Venous blood specimen / Unknown Venipuncture / Unknown 09/05/2024 4:07 AM EDT 09/05/2024 4:24 AM EDT Ileana VIERA LAB BLOOD ORDERABLES Fin al Result Performing Organization Address [facility]/ZIP Co de Phone Number [facility] [address] [place] [address], * D-dimer, quantitative (09/05/2024 4:07 AM EDT) [facility] D-Dimer, Quant (D-DU) <150 <=230 ng/mL DDU LAB COAGULATION METHOD 09/05/2024 5:05 AM EDT [facility] Blood Venous blood specimen / Unknown Venipuncture / Unknown 09/05/2024 4:07 AM EDT 09/05/2024 4:24 AM EDT Narrative [facility] - 09/05/2024 5:05 AM EDT D-Dimer <230 ng/mL (D-Dimer units) is the threshold for exclusion of DVT/PE. D-Dimer may be elevated in: Critically ill, severely infected, trauma patients, DIC, acute CVA, acute IL, unstable angina, AF, old age, , and smoking. D-Dimer may be decreased with: Initiation of heparin therapy and oral anticoagulants. Ileana VIERA LAB BLOOD ORDERABLES Fin al Result Performing Organization Address City/[facility]/ZIP Co de Phone Number [facility] [address] [place] [address], * Type and screen (09/05/2024 4:07 AM EDT) ABO Group AB 09/05/2024 6:19 AM EDT [facility] Rh Type Positive 09/05/2024 6:19 AM EDT [facility] Antibody Screen Negative 09/05/2024 6:19 AM EDT [facility] Blood Venous blood specimen / Unknown Venipuncture / Unknown 09/05/2024 4:07 AM EDT 09/05/2024 4:31 AM EDT Emeterio Bautista MD LAB BLOOD BANK TEST ORDERABL ES Final Result Performing Organization Address [facility]/ZIP Co de Phone Number [facility] [address] [place] [address], * (ABNORMAL) Ammonia (09/05/2024 4:07 AM EDT) Ammonia 66(H) 11 - 35 mcmol/L LAB CHEMISTRY METHOD 09/05/2024 4:55 AM EDT [facility] Blood Venous blood specimen / Unknown Venipuncture / Unknown 09/05/2024 4:07 AM EDT 09/05/2024 4:23 AM EDT us Ileana VIERA LAB BLOOD ORDERABLES Fin al Result [facility] ([facility]) [facility] [address] [place] [address], [place] [phone] from Last 3 Months Insurance [facility] [place] [address] Advance Directives * Full Code - Default (Latest Code Status on File) Date Activated Date Inactivated Comments 10/06/2024 6:24 AM 10/06/2024 2:25 PM This is orde r is used when code status has not been discussed with the patient, or code status is otherwise unknown/unconfirmed To update the patient's code status, place a code status order. Do not modify or discontinue any currently active code status orders. * Full Code - Default Date Activated Date Inactivated Comments 06/25/2024 3:34 PM 06/27/2024 4:20 PM This is order is used when code status has not been discussed with the patient, or code status is otherwise unknown/unconfirmed To update the patient's code status, place a code status order. Do not modify or discontinue any currently active code status orders. * Full Code - Default Date Activated Date Inactivated Comments 06/14/2024 12:33 PM 06/18/2024 3:21 PM This is ord er is used when code status has not been discussed with the patient, or code status is otherwise unknown/unconfirmed To update the patient's code status, place a code status order. Do not modify or discontinue any currently active code status orders. * Full Code - Default Date Activated Date Inactivated Comments 06/06/2024 4:26 PM 06/09/2024 5:04 PM This is orde r is used when code status has not been discussed with the patient, or code status is otherwise unknown/unconfirmed To update the patient's code status, place a code status order. Do not modify or discontinue any currently active code status orders. * Full Code - Default Date Activated Date Inactivated Comments 03/27/2024 9:09 AM 03/29/2024 6:29 PM This is order is used when code status has not been discussed with the patient, or code status is otherwise unknown/unconfirmed To update the patient's code status, place a code status order. Do not modify or discontinue any currently active code status orders. Care Teams [employer] Super[employer] Relationship Specialty Start Date End Date Alex Montesinos MD [address] [place] [address] [address] [place], [place] PCP - General Internal Medicine 10/04/24
[2024-12-05 00:58] LABS: MANUAL DIFF FLAG NO
[2024-12-05 00:59] LABS: Hematocrit 32.6 % (37.0-47.0); Hemoglobin 11.0 g/dl (12.0-16.0); Imm Gran Abs Auto 0.00 X10*3/uL (0.00-0.03); Imm Gran Pct Auto 0.0 % (0.0-0.4); Lymphocytes Absolute Auto 2.2 X10*3/uL (1.2-4.9); Mean Corpuscular HGB Conc 33.7 g/dl (31.0-35.0); Mean Corpuscular Hemoglobin 31.2 pg (27.0-33.0); Mean Corpuscular Volume 92.4 fL (80.0-98.0); NRBC Abs Auto 0.000 X10*3/uL (0.0-0.012); NRBC Pct Auto 0.0 /100WBC (0.0-0.2); Platelet Count 241 X10*3/uL (160-400); Red Blood Count 3.53 X10*6/uL (4.20-5.50); White Blood Count 4.0 X10*3/uL (4.8-10.8)
[2024-12-05 01:27] LABS: Alanine Aminotransferase 44 U/L (0-31); Albumin Level 4.3 g/dL (3.5-5.0); Alkaline Phosphatase 72 U/L (39-117); Anion Gap 19 (12-20); Aspartate Amino Transferase 105 U/L (5-31); Blood Urea Nitrogen 8 mg/dL (9-16); Calcium 8.8 mg/dL (8.4-10.2); Carbon Dioxide 25 mmol/L (22-29); Chloride 106 mmol/L (96-108); Creatinine Clr Calc Pharmacy 101.6; Estimated Glomerular Filt Rate > 60; Lipase 23 U/L (8-78); Potassium 4.7 mmol/L (3.3-5.1); Sodium 145 mmol/L (135-145); Total Protein 8.0 g/dL (6.5-8.0)
[2024-12-05 01:46] VITALS: BP 105/53; PULSE 107; RESP 18; TEMP 36.8; O2SAT 93
--- NOTE | 2024-12-05 01:50 | PC.NURSE ---
pt remains awake and alert, conversing freely with bedside visitor. RN has requested a safety search to be completed by security. Pt confirms that she does have empty nip bottles in her purse but denies having any controband and/or bottles containing alcohol. Safety search pending as security dealing with another situation at this time. The pt was medicated once again with 0.5mg of dilaudid for 8/10 llq abdominal pain that was previously unrelieved by her 1st dose. She is pending CT scan, per patient she is allergic to IV contrast and cannot have it; SCOTT made aware and CT advised to scan the pt without contrast. Pt's allergies were previously confirmed and she did not mention this but this RN will update her allergy list to reflect this.
[2024-12-05 02:54] LABS: Appearance Urine Clear; Glucose Urine UA Negative (Negative); PH 5.5 (5.0-9.0); Specific Gravity - Urine 1.015 (1.005-1.025)
--- NOTE | 2024-12-05 02:54 | PC.NURSE ---
pt resting in bed, boyfriend at bedside. Pt calm and cooperative, fluids running per MAR.
--- NOTE | 2024-12-05 04:09 | PC.NURSE ---
pt reports increased pain in abdomen, confirms relief earlier with medication given (hydromorphone), advised provider, awaiting new orders
--- NOTE | 2024-12-05 05:43 | PC.NURSE ---
pt noted to be sleeping in bed, partner at bedside.
[2024-12-05 07:03] VITALS: BP 124/89; PULSE 113; RESP 20; TEMP 37.2; O2SAT 93
--- NOTE | 2024-12-05 07:04 | PC.NURSE ---
Pt reports left sided abdominal pain 10/ that radiates to left hip. ALso noted bright red blood per rectum while up to bathroom just now.
[2024-12-05 08:29] VITALS: BP 111/83; PULSE 100; RESP 20; TEMP 37.2; O2SAT 93
== END 2024-12-05 08:49 | disposition home or self-care (01) ==
PROVIDERS: Emergency Medicine Emergency Medical Services; Emergency Provider Emergency Medicine; PCP Internal Medicine
DX: F10.129 Alcohol abuse with intoxication, unspecified (principal); R10.30 Lower abdominal pain, unspecified; R00.0 Tachycardia, unspecified; Z85.038 Personal history of other malignant neoplasm of large intestine; Z79.899 Other long term (current) drug therapy
CPT/HCPCS: 36415; 74176; 80048; 80076; 80307; 81001; 83690; 84702; 85025; 99285; J1171; J1200; J2405

== ENCOUNTER → 2024-12-05 00:10 | Outpatient (BNV) | payer OTHER, SELFPAY | PROVIDERS: Emergency Provider Emergency Medicine; PCP Internal Medicine; Visit Provider Radiology Diagnostic Radiology | DX: R10.32 Left lower quadrant pain (principal); Z91.041 Radiographic dye allergy status | CPT/HCPCS: 74176 ==

== ENCOUNTER 2024-12-06 22:11 | Emergency (ER) | payer OTHER, SELFPAY ==
[2024-12-06 22:15] VITALS: BP 125/86; BP 158/100; PULSE 101; PULSE 98; RESP 18; TEMP 36.1; O2SAT 97; O2SAT 98; BMI 21.6
--- NOTE | 2024-12-06 22:30 | ED.ABDPAIN ---
HPI - Abdominal Pain General Chief Complaint: Abdominal Pain Stated Complaint: abd pain and etoh Time Seen by Provider: 12/06/24 22:27 Source: patient Mode of arrival: ambulatory Limitations: no limitations History of Present Illness ED Provider: Dr. Dick Carr HPI narrative: 49-year-old female history of alcohol use disorder, colon cancer with partial colectomy 2012 who presents emergency department for evaluation of lower abdominal pain. Patient points to her left lower abdomen when asked to localize the pain. She states the pain is a constant, sharp pain that started several hours prior to coming to the emergency department. She states the pain is 10/10. Patient states she had similar pain yesterday and was seen here in the emergency department. Patient states she did have 3 glasses of wine prior to coming to the emergency department. I did review the ED record from yesterday. Patient presented with several hours of left-sided abdominal pain associated with nausea but no vomiting. Labs revealed an elevated AST and ALT of 105 and 44 with a normal lipase and a negative test. CT scan of the abdomen pelvis without IV contrast revealed hepatic steatosis and hepatomegaly. Diverticulosis without diverticulitis. Normal appendix. No bowel obstruction. Patient was treated with Dilaudid 0.5 mg IV x2, Zofran 4 mg IV and normal saline x2 L. Related Data Previous Rx's ?Medication ?Instructions ?Recorded dicyclomine 20 mg tablet 20 mg PO TID #10 tabs 12/05/24 prochlorperazine maleate 10 mg 10 mg PO Q8H PRN nausea and 12/05/24 tablet (Compazine) vomiting #14 tabs Allergies Allergy/AdvReac Type Severity Reaction Status Date / Time ciprofloxacin Allergy Unknown Verified 12/06/24 22:37 Iodinated Contrast Media Allergy Anaphylaxis Verified 12/07/24 09:20 (Contrast Dye) haloperidol (From Haldol) AdvReac Agitated Verified 12/06/24 22:37 ketorolac (From Toradol) AdvReac Abdominal Verified 12/07/24 07:58 Pain Review of Systems Review of Systems Yes all other systems are reviewed and are negative [facility] Past Medical History [facility] Narrative: Social history: She denies tobacco use. She does drink 2-3 glasses of wine per day. She denies alcohol use. Social History Social History Alcohol intake: current Alcohol intake frequency: 3 or more drinks per day Alcohol type: wine Use of substances other than those prescribed or required for medical reasons: No Advance Directives: No Advance Directives Information Provided: No Do you have a plan to hurt others: No Plan Patient : No Physical Exam ED Vital Signs: Vital Signs - 24 hr 12/06/24 22:15 12/06/24 22:41 12/06/24 22:41 Temperature 97 F 97 F Pulse Rate 101 H 101 H Pulse Rate [Monitor] 101 H Respiratory Rate 18 18 Blood Pressure 125/86 125/86 Pulse Oximetry 98 98 Oxygen Delivery Method Room Air Room Air 12/07/24 00:19 12/07/24 03:51 12/07/24 06:27 Temperature 97.5 F 98.9 F 97.9 F Pulse Rate 104 H 97 103 H Pulse Rate [Monitor] Respiratory Rate 18 14 16 Blood Pressure 129/56 L 109/76 134/89 Pulse Oximetry 94 94 95 Oxygen Delivery Method Room Air Room Air Room Air 12/07/24 08:11 Temperature Pulse Rate Pulse Rate [Monitor] Respiratory Rate 25 H Blood Pressure Pulse Oximetry Oxygen Delivery Method BMI result Body Mass Index 21.6 Exam: General: Awake, alert, in distress secondary to her abdominal pain, strong odor of alcohol on her breath. Head: Normocephalic, atraumatic EENT: PERRL, sclera and conjunctiva are normal, mouth with no erythema or exudates, poor dentition Neck: Supple, no adenopathy Lung: breath sounds symmetric, no wheezing, no rales and no rhonchi Chest: symmetric movement, nontender Heart: regular rate and rhythm, normal S1, S2 no murmurs or rubs Abdomen: soft, mild to moderate left upper quadrant tenderness, moderate right lower quadrant tenderness, no rebound, nondistended, normal bowel sounds Back: no vertebral tenderness, no CVAT Extremities: no deformities, moves all extremities symmetrically, no edema Neuro: Awake, alert, oriented, slurred speech, cranial nerves 2-12 intact, moves all extremities symmetrically Psych: Pleasant, cooperative Course Course Course Narrative: 5:37 AM 12/07/2024 (Sisi VIERA): Patient was signed out to this provider at shift change, in summary the patient is a 49-year-old female with a history of alcohol dependency and remote history of colon cancer status post resection 10 years ago, presenting to the ED for evaluation of 2 hours of sharp left upper quadrant abdominal pain with associated nausea without vomiting, as well as alcohol intoxication. The patient was seen in this ED 2 days ago for same symptoms after drinking alcohol, ethanol level over 300. During that visit the patient was treated with IV fluid hydration and Dilaudid, patient also underwent laboratory evaluation and CT abdomen and pelvis which was unremarkable. A repeat CT was deferred during today's visit. The patient's laboratory evaluation today shows no leukocytosis, anemia, or BETSY. The patient's ethanol level was 373, ALT and AST were elevated at 35 and 58, LFTs otherwise unremarkable, lipase normal. The patient's sodium was elevated at 150, compared to 145 yesterday. The patient received IV fluid hydration and was treated with Dilaudid, Toradol, Benadryl, and Zofran. The patient was signed out to this provider pending repeat evaluation for clinical sobriety. Patient has been sleeping comfortably for the past 4+ hours, in no evidence of acute distress. Patient is now awake and reporting severe recurrence of her pain, requesting additional narcotic pain medication. Given her history of alcoholism and left upper quadrant pain, symptoms are concerning for possible alcoholic gastritis. Patient was offered a GI cocktail which she initially declined and demanded narcotic pain medication. Patient was informed there was no diagnosis identified on either today or yesterday's ED evaluation which warranted additional narcotic pain medication. Patient requested to repeat the CT stating her pain is similar to when she was previously diagnosed with colon cancer. We will repeat the patient's CT, and treat with GI cocktail which the patient is now willing to accept. Of note yesterday the patient refused IV contrast stating she was allergic, tonight patient states she is not allergic but does get itchy with IV contrast, patient states she requires 50 mg of IV Benadryl prior to contrast bolus, we will provide Benadryl and obtain repeat CT now with contrast to ensure no new acute intra-abdominal process. Reevaluation(s) Reevaluation #1: 49-year-old female recently just moved into [facility] history of colon cancer, history of ETOH dependence presented with abdominal pain patient was seen in the emergency department on 12/[address] of the abdomen and pelvis which was unremarkable for acute pathology, patient is awaiting for repeat CT abdomen and pelvis with IV contrast, patient has left the ED before my full evaluation and receiving her discharge instruction. Time: 09:04 Medical Decision Making Medical Decision Making [facility] Narrative: 49-year-old female history of alcohol use disorder, colon cancer with partial colectomy 2012 who presents emergency department for evaluation of left-sided, constant, 10/10, sharp, abdominal pain which started several hours prior to coming to emergency department. Patient had similar pain yesterday and was seen here in the emergency department. Workup revealed elevated AST ALT with normal lipase and elevated ethanol level of 312. Exam today revealed slurred speech, strong odor of alcohol in her breath, left sided abdominal tenderness with increased tenderness in the left lower quadrant. Differential diagnosis: ?Includes but is not limited to alcohol intoxication, pancreatitis, diverticulitis, bowel obstruction, anemia, electrolyte abnormalities Course: 23:02 Patient appears to be intoxicated. She did have left lower quadrant tenderness similar to yesterday when she had a negative CT abdomen pelvis without IV contrast. I did order laboratory evaluation. Patient was treated with Toradol 15 mg IV and Zofran 4 mg IV. I also ordered normal saline x1 L. 01:23 My interpretation patient's laboratory evaluation is as follows: WBC low 4600. Platelet count normal 255,000. Sodium elevated 150. Chloride elevated 111. AST and ALT elevated 58 and 35. Ethanol level elevated 373. Laboratory evaluation similar to yesterday's values. Patient told the nurse that she was allergic to Toradol therefore she was given Dilaudid 1 mg IV. The patient had a negative CAT scan yesterday therefore I do not think that she needs a repeat CAT scan today. Patient's symptoms are related to her alcohol use disorder and her acute alcohol intoxication. Patient will be placed in physician observation until she is sober enough to be safely discharged. At the end of my shift, the patient was turned over to my colleague, physician assistant education director Zaid Shore Differential Diagnosis Differential Diagnoses: The differential diagnosis associated with the presentation includes (See above) Admission/Observation Consideration of admission/observation: Escalation of care including admission/observation considered (Yes) Lab Data 12/06/24 23:21 12/07/24 00:35 Labs: Lab Results 12/06/24 12/07/24 12/07/24 Range/Units 23:21 00:35 07:29 WBC 4.6 L (4.8-10.8) X10*3/uL RBC 4.16 L (4.20-5.50) X10*6/uL Hgb 12.7 (12.0-16.0) g/dl Hct 37.6 (37.0-47.0) % MCV 90.4 (80.0-98.0) fL MCH 30.5 (27.0-33.0) pg MCHC 33.8 (31.0-35.0) g/dl RDW 13.9 (11.0-16.0) % Plt Count 255 (160-400) X10*3/uL MPV 9.2 L (9.4-12.3) fL Immature Gran % (Auto) 0.2 (0.0-0.4) % Neut % (Auto) 35.2 L (45-73) % Lymph % (Auto) 54.4 H (20-40) % [place] % (Auto) 6.7 (2-11) % Eos % (Auto) 1.5 (0-4) % Baso % (Auto) 2.0 (0-2) % Lymph # (Auto) 2.5 (1.2-4.9) X10*3/uL [place] # (Auto) 0.3 (0.1-1.2) X10*3/uL Eos # (Auto) 0.1 (0.0-0.4) X10*3/uL Baso # (Auto) 0.1 (0.0-0.2) X10*3/uL Abs Immat Gran (auto) 0.01 (0.00-0.03) X10*3/uL Absolute Neuts (auto) 1.6 L (2.0-8.3) x10*3/uL Absolute Nucleated RBC 0.000 (0.0-0.012) X10*3/uL Nucleated RBC % (auto) 0.0 (0.0-0.2) /100WBC Sodium 150 H (135-145) mmol/L Potassium 3.8 (3.3-5.1) mmol/L Chloride 111 H (96-108) mmol/L Carbon Dioxide 25 (22-29) mmol/L Anion Gap 18 (12-20) BUN 7 L (9-16) mg/dL Creatinine 0.63 (0.5-1.4) mg/dL Estim Creat Clear Calc 96.1 Estimated GFR > 60 POC Glucose (60-115) mg/dL Random Glucose 84 (60-115) mg/dL Calcium 8.5 (8.4-10.2) mg/dL Total Bilirubin 0.2 (0.0-1.0) mg/dL AST 58 H (5-31) U/L ALT 35 H (0-31) U/L Alkaline Phosphatase 79 (39-117) U/L Total Protein 7.8 (6.5-8.0) g/dL Albumin 4.5 (3.5-5.0) g/dL Lipase 17 (8-78) U/L Urine Opiates Screen Not Detected (Not Detect) Ur Buprenorphine Scrn Not Detected (Not Detect) ng/mL Ur Oxycodone Screen Not Detected (Not Detect) ng/mL Urine Methadone Screen Not Detected (Not Detect) ng/mL Urine Fentanyl Screen Not Detected (Not Detect) Ur Barbiturates Screen Not Detected (Not Detect) Ur Phencyclidine Scrn Not Detected (Not Detect) Ur Amphetamines Screen Not Detected (Not Detect) U Benzodiazepines Scrn POSITIVE H (Not Detect) Urine Cocaine Screen Not Detected (Not Detect) U Marijuana (THC) Screen Not Detected (Not Detect) Ethyl Alcohol 373 H* mg/dL 12/07/24 Range/Units 08:27 WBC (4.8-10.8) X10*3/uL RBC (4.20-5.50) X10*6/uL Hgb (12.0-16.0) g/dl Hct (37.0-47.0) % MCV (80.0-98.0) fL MCH (27.0-33.0) pg MCHC (31.0-35.0) g/dl RDW (11.0-16.0) % Plt Count (160-400) X10*3/uL MPV (9.4-12.3) fL Immature Gran % (Auto) (0.0-0.4) % Neut % (Auto) (45-73) % Lymph % (Auto) (20-40) % [place] % (Auto) (2-11) % Eos % (Auto) (0-4) % Baso % (Auto) (0-2) % Lymph # (Auto) (1.2-4.9) X10*3/uL [place] # (Auto) (0.1-1.2) X10*3/uL Eos # (Auto) (0.0-0.4) X10*3/uL Baso # (Auto) (0.0-0.2) X10*3/uL Abs Immat Gran (auto) (0.00-0.03) X10*3/uL Absolute Neuts (auto) (2.0-8.3) x10*3/uL Absolute Nucleated RBC (0.0-0.012) X10*3/uL Nucleated RBC % (auto) (0.0-0.2) /100WBC Sodium (135-145) mmol/L Potassium (3.3-5.1) mmol/L Chloride (96-108) mmol/L Carbon Dioxide (22-29) mmol/L Anion Gap (12-20) BUN (9-16) mg/dL Creatinine (0.5-1.4) mg/dL Estim Creat Clear Calc Estimated GFR POC Glucose 80 (60-115) mg/dL Random Glucose (60-115) mg/dL Calcium (8.4-10.2) mg/dL Total Bilirubin (0.0-1.0) mg/dL AST (5-31) U/L ALT (0-31) U/L Alkaline Phosphatase (39-117) U/L Total Protein (6.5-8.0) g/dL Albumin (3.5-5.0) g/dL Lipase (8-78) U/L Urine Opiates Screen (Not Detect) Ur Buprenorphine Scrn (Not Detect) ng/mL Ur Oxycodone Screen (Not Detect) ng/mL Urine Methadone Screen (Not Detect) ng/mL Urine Fentanyl Screen (Not Detect) Ur Barbiturates Screen (Not Detect) Ur Phencyclidine Scrn (Not Detect) Ur Amphetamines Screen (Not Detect) U Benzodiazepines Scrn (Not Detect) Urine Cocaine Screen (Not Detect) U Marijuana (THC) Screen (Not Detect) Ethyl Alcohol mg/dL Medications Administered Discontinued Medications Generic Name Dose Route Start Last Admin Trade Name Freq PRN Reason Stop Dose Admin Al Hydroxide/Mg Hydroxide 30 ml 12/07/24 05:35 12/07/24 06:22 Magnesium Hydrox/Alum Hydrox 30 Ml Oral.Susp PO 12/07/24 05:36 30 ml ONCE ONE Administration Diphenhydramine HCl 25 mg 12/07/24 00:06 12/07/24 00:47 Diphenhydramine Hcl 50 Mg/Ml Vial IVPUSH 12/07/24 00:07 25 mg ONCE ONE Administration Diphenhydramine HCl 50 mg 12/07/24 05:55 12/07/24 06:15 Diphenhydramine Hcl 50 Mg/Ml Vial IVPUSH 12/07/24 05:56 50 mg ONCE ONE Administration Famotidine 20 mg 12/07/24 05:35 12/07/24 06:21 Famotidine 20 Mg Tablet PO 12/07/24 05:36 20 mg ONCE ONE Administration Hydromorphone HCl 1 mg 12/07/24 00:06 12/07/24 00:46 Hydromorphone Hcl 1 Mg/Ml Syringe IVPUSH 12/07/24 00:07 1 mg ONCE STA Administration Protocol Sodium Chloride 1,000 mls @ 999 mls/hr 12/06/24 22:46 12/07/24 00:48 Ns IV 12/06/24 23:46 Infused .Q1H1M STA Infusion Acetaminophen 1,000 mg in 100 mls @ 400 mls/hr 12/07/24 07:19 12/07/24 08:11 Ofirmev IV 12/07/24 07:33 Not Given ONCE ONE Ketorolac Tromethamine 15 mg 12/06/24 22:46 12/06/24 23:42 Ketorolac Tromethamine 15 Mg/Ml Vial IVPUSH 12/06/24 22:47 Not Given ONCE STA Lidocaine HCl 15 ml 12/07/24 05:35 12/07/24 06:22 Lidocaine Hcl Viscous 2 % 15 Ml Solution PO 12/07/24 05:36 15 ml ONCE ONE Administration Morphine Sulfate 2 mg 12/07/24 07:59 12/07/24 08:11 Morphine Sulfate 2 Mg/Ml Cartridge IVPUSH 12/07/24 08:00 2 mg ONCE ONE Administration Protocol Ondansetron HCl 4 mg 12/06/24 22:46 12/06/24 23:31 Ondansetron Hcl 4 Mg/2 Ml Vial IVPUSH 12/06/24 22:47 4 mg ONCE ONE Administration Discharge Plan Discharge Clinical Impression: Abdominal pain, Acute alcohol intoxication, Alcohol use disorder Patient Disposition: Left W/O Completing Treatment Additional Instructions: Your abdominal pain is related to your alcohol use disorder. A blood alcohol level higher than 80 is consistent with alcohol intoxication. Your alcohol level was elevated at 375 which is 4 times above the intoxicated level. You need to get help with your alcohol use disorder otherwise you will develop alcohol cirrhosis and you will from liver failure. Continue taking medications as prescribed by your providers Alcohol use disorder You were seen in the Emergency Department today for treatment of alcohol use disorder.? If you would like to cut down or stop your alcohol use please consider calling our outpatient Addiction Treatment office:? [facility] ([id number]) [address] [place] [address] [address] You have also been given a list of treatment providers in the area that can assist as well.? If you experience seizures, vomiting blood, black stools, falls, severe headache, chest pain, fevers, trouble breathing, hallucinations or any other concerns you need to call 911 or seek immediate care. Please stay hydrated. Prescriptions: No Action dicyclomine 20 mg tablet 20 mg PO TID Qty: 10 0RF prochlorperazine maleate [Compazine] 10 mg tablet 10 mg PO Q8H PRN (Reason: nausea and vomiting) Qty: 14 0RF Interventions: ED Discharge Assessment Last Done: 12/07/24 09:22 Discharge Date/Time: 12/07/24 09:16
[2024-12-06 22:41] VITALS: BP 125/86; PULSE 101; RESP 18; TEMP 36.1; O2SAT 98
--- OUTSIDE RECORDS SUMMARY | 2024-12-06 22:52 | XMS_ITS | Clinical Summary ---
Author Organization [facility] Address [address] [place] [address] Phone Care Team Providers Care 21 Dealer Name Role Phone Alex Montesinos MD Primary Care Provider [phone] Allergies Active Allergy Reactions Criticality Noted Date Comments Bee Venom Protein (Honey Bee) 2024 Ciprofloxacin Anaphylaxis High 03/08/2024 Iodinated Contrast Media Rash Low 06/14/2024 Ketorolac Hives Medium 06/14/2024 Martin 09/05/2024 Medications acamprosate (CAMPRAL) 333 mg EC [...] EDT - 10/10/2024 6:17 AM EDT Emergency [facility] Emergency [address] [place] [phone] Discharge Disposition: Home or Self Care 10/06/2024 4:18 AM EDT - 10/06/2024 12:24 PM EDT Hospital Encounter [facility] Emergency [address] [place] [phone] Emeterio Bautista MD Kela, Kashyap Devendrabhai, MD C. difficile colitis (Primary Dx); Hypomagnesemia; Hypokalemia; Intractable abdominal pain; Intractable nausea and vomiting Discharge Disposition: Left Against Medical Advice 10/04/2024 3:47 AM EDT - 10/04/2024 9:35 AM EDT Emergency [facility] Emergency [address] [place] [phone] Emeterio Bautista MD Mersier, Jasmine, DO RUQ abdominal pain (Primary Dx) Discharge Disposition: Home or Self Care 09/05/2024 3:35 AM EDT - 09/05/2024 8:40 AM EDT Emergency [facility] Emergency [address] [place] [phone] Epigastric pain (Primary Dx); Nausea and vomiting, unspecified vomiting type; Alcohol abuse Discharge Disposition: Left Against Medical Advice from Last 3 Months Surgical History Surgery Date Site/Laterality Comments COLON SURGERY CHOLECYSTECTOMY COLECTOMY Medical History Medical History Date Comments Colon cancer (CMS/HCC V24, CMS/HCC V28) Fatty liver Alcoholic peripheral neuropathy ([facility] V24) Hypertension Alcohol use disorder Hypomagnesemia Chronic [...] 03/09/2024 Social Influencers of Health Screening 03/09/2024 RSV Immunization Adult Patients (1 - Risk 50-74 years 1-dose series) 2024 Influenza Vaccine (#1) 2024 Hypertension/CHF/CAD Annual BMP Blood Test 10/06/2025 10/06/2024, 10/04/2024, 09/05/2024, Additional history exists HIB Vaccines Aged Out No longer eligi [...] AND DIFFERENTIAL STAT 10/06/2024 5:02 AM EDT [facility] 30-74 MINUTES Routine 10/06/2024 1:07 [...] resultswithin the time period is included. Specific [place] Urine 1.024 1.003 - 1.030 LAB URINALYSIS - AUTOMATED METHOD 10/06/2024 10:41 AM EDT [facility] pH, Urine 5.5 5.0 - 8.0 pH LAB URINALYSIS - AUTOMATED METHOD 10/06/2024 10:41 AM EDT [facility] Leukocytes, Urine Negative Negative LAB URINALYSIS - AUTOMATED METHOD 10/06/2024 10:41 AM [facility] Nitrite, Urine Negative Negative LAB URINALYSIS - AUTOMATED METHOD 10/06/2024 10:41 AM [facility] Protein, Urine Negative <=Trace mg/dL LAB URINALYSIS - AUTOMATED METHOD 10/06/2024 10:41 AM [facility] Glucose, Urine Negative Negative mg/dL LAB URINALYSIS - AUTOMATED METHOD 10/06/2024 10:41 AM [facility] Ketones, Urine Negative Negative mg/dL LAB URINALYSIS - AUTOMATED METHOD 10/06/2024 10:41 AM [facility] Urobilinogen, Urine 0.2 0.2 - 1.0 mg/dL LAB URINALYSIS - AUTOMATED METHOD 10/06/2024 10:41 AM [facility] Bilirubin, Urine Negative Negative LAB URINALYSIS - AUTOMATED METHOD 10/06/2024 10:41 AM [facility] Blood, Urine Negative Negative LAB URINALYSIS - AUTOMATED METHOD 10/06/2024 10:41 AM [facility] Urine Urine specimen obtained by clean catch procedure / Unknown Non-blood Collection / Unknown 10/06/2024 10:01 AM EDT 10/06/2024 10:30 AM EDT us Ileana VIERA LAB URINE ORDERABLES Fin al Result [facility] [address] [place] [address], * Lactate, with Reflex (10/06/2024 5:02 AM EDT) Only the most recent of3 resultswithin the time period is included. LACTIC ACID 1.3 0.4 - 2.0 mmol/L LAB CHEMISTRY METHOD 10/06/2024 6:19 AM EDT [facility] Blood Venous blood specimen / Unknown Venipuncture / Unknown 10/06/2024 5:02 AM EDT 10/06/2024 5:18 AM EDT us Emeterio Bautista MD LAB BLOOD ORDERABLES Final R esult [facility] [address] [place] [address], * (ABNORMAL) CBC auto differential (10/06/2024 5:02 AM EDT) Only the most recent of3 resultswithin the time period is included. WBC 7.1 4.8 - 10.8 K/mcL LAB HEMETOLOGY METHOD 10/06/2024 6:21 AM [facility] RBC 3.90 3.80 - 4.80 M/mcL LAB HEMETOLOGY METHOD 10/06[facility]24 [facility] Hemoglobin 12.3 11.5 - 16.0 g/dL LAB HEMETOLOGY METHOD 10/06/2024 6:21 AM [facility] Hematocrit 36.5 35.0 - 47.0 % LAB HEMETOLOGY METHOD 10/06/2024 6:21 AM [facility] MCV 94.3 79.0 - 98.0 FL LAB HEMETOLOGY METHOD 10/06/2024 6:21 AM [facility] MCH 31.8 27.0 - 32.0 pcg LAB HEMETOLOGY METHOD 10/06/2024 6:21 AM [facility] MCHC 33.7 32.0 - 37.0 g/dL LAB HEMETOLOGY METHOD 10/06/2024 6:21 AM [facility] RDW 16.5(H) 11.0 - 15.0 % LAB HEMETOLOGY METHOD 10/06/2024 6:21 AM [facility] Platelets 196 130 - 400 K/mcL LAB HEMETOLOGY METHOD 10/06/2024 6:21 AM [facility] Comment:reviewed by slide MPV 10.4 7.0 - 11.0 FL LAB HEMETOLOGY METHOD 10/06/2024 6:21 AM [facility] NRBC 0.0 <1.0 % LAB HEMETOLOGY METHOD 10/06/2024 6:21 AM [facility] NRBC Absolute 0.00 <0.10 K/mcL LAB HEMETOLOGY METHOD 10/06/2024 6:21 AM [facility] Neutrophils Relative 67.6 % LAB HEMETOLOGY METHOD 10/06/2024 6:21 AM [facility] Lymphocytes Relative 22.3 % LAB HEMETOLOGY METHOD 10/06/2024 6:21 AM [facility] Monocytes Relative 6.4 % LAB HEMETOLOGY METHOD 10/06/2024 6:21 AM [facility] Eosinophils Relative 2.1 % LAB HEMETOLOGY METHOD 10/06/2024 6:21 AM [facility] Basophils Relative 0.8 % LAB HEMETOLOGY METHOD 10/06/2024 6:21 AM [facility] Immature Granulocytes Relative 0.8 % LAB HEMETOLOGY METHOD 10/06/2024 6:21 AM [facility] Neutrophils Absolute 4.82 1.50 - 7.00 K/mcL LAB HEMETOLOGY METHOD 10/06/2024 6:21 AM [facility] Lymphocytes Absolute 1.59 1.00 - 5.00 K/mcL LAB HEMETOLOGY METHOD 10/06/2024 6:21 AM [facility] Monocytes Absolute 0.46 0.20 - 1.00 K/mcL LAB HEMETOLOGY METHOD 10/06/2024 6:21 AM EDT [facility] Eosinophils Absolute 0.15 0.00 - 0.50 K/mcL LAB HEMETOLOGY METHOD 10/06/2024 6:21 AM EDT [facility] Basophils Absolute 0.06 0.00 - 0.20 K/mcL LAB HEMETOLOGY METHOD 10/06/2024 6:21 AM EDT [facility] Immature Granulocytes Absolute 0.06(H) 0.00 - 0.03 K/mcL LAB HEMETOLOGY METHOD 10/06/2024 6:21 AM EDT [facility] Blood Venous blood specimen / Unknown Venipuncture / Unknown 10/06/2024 5:02 AM EDT 10/06/2024 5:18 AM EDT Ileana VIERA LAB BLOOD ORDERABLES Fin al Result Performing Organization Address City/[facility]/ZIP Co de Phone Number [facility] [address] [place] [address], [place] [phone] * (ABNORMAL) Magnesium (10/06/2024 5:02 AM EDT) Only the most recent of2 resultswithin the time period is included. Magnesium 1.1(L) 1.9 - 2.6 mg/dL LAB CHEMISTRY METHOD 10/06/2024 5:59 AM EDT [facility] Blood Venous blood specimen / Unknown Venipuncture / Unknown 10/06/2024 5:02 AM EDT 10/06/2024 5:18 AM EDT Ileana VIERA LAB BLOOD ORDERABLES Fin al Result Performing Organization Address City/[facility]/ZIP Co de Phone Number [facility] [address] [place] [address], [place] [phone] * Lipase (10/06/2024 5:02 AM EDT) Only the most recent of3 resultswithin the time period is included. Lipase 50 13 - 75 unit/L LAB CHEMISTRY METHOD 10/06/2024 5:59 AM EDT [facility] Blood Venous blood specimen / Unknown Venipuncture / Unknown 10/06/2024 5:02 AM EDT 10/06/2024 5:18 AM EDT Ileana Slaughter PA LAB BLOOD ORDERABLES Fin al Result Performing Organization Address [facility]/ZIP Co de Phone Number [facility] [address] [place] [address], [place] [phone] * Ethanol (10/06/2024 5:02 AM EDT) Only the most recent of2 resultswithin the time period is included. [facility] Ethanol Level <3 0 - 10 mg/dL LAB CHEMISTRY METHOD 10/06/2024 8:10 AM EDT [facility] Blood Venous blood specimen / Unknown Venipuncture / Unknown 10/06/2024 5:02 AM EDT 10/06/2024 5:18 AM EDT Brunilda Fischer CHIEF SECURITY AND SAFETY OFFICER LAB BLOOD ORDERABLES Final Res ult Performing Organization Address City/[facility]/ZIP Co de Phone Number [facility] [address] [place] [address], [place] [phone] * (ABNORMAL) Comprehensive Metabolic Panel (CMP) (10/06/2024 5:02 AM EDT) Only the most recent of3 resultswithin the time period is included. [facility] Sodium 142 133 - 145 mmol/L LAB CHEMISTRY METHOD 10/06/2024 6:19 AM EDT [facility] Potassium 3.2(L) 3.5 - 5.5 mmol/L LAB CHEMISTRY METHOD 10/06/2024 6:19 AM EDT [facility] Chloride 113(H) 96 - 110 mmol/L LAB CHEMISTRY METHOD 10/06/2024 6:19 AM [facility] CO2 22 21 - 32 mmol/L LAB CHEMISTRY METHOD 10/06/2024 6:19 AM [facility] Anion Gap 7 3 - 11 LAB CHEMISTRY METHOD 10/06/2024 6:19 AM [facility] Glucose 90 70 - 100 mg/dL LAB CHEMISTRY METHOD 10/06/2024 6:19 AM [facility] BUN 6 5 - 25 mg/dL LAB CHEMISTRY METHOD 10/06/2024 6:19 AM [facility] Creatinine 0.29(L) 0.50 - 1.10 mg/dL LAB CHEMISTRY METHOD 10/06/2024 6:19 AM [facility] eGFR 130 >=60 mL/min/1. 73m2 LAB CHEMISTRY METHOD 10/06/2024 6:19 AM [facility] Comment:Calculation based on the Chronic Kidney Disease Epidemiology Collaboration (CKD-EPI) equation refit without adjustment for race. BUN/Creatinine Ratio 20.7 LAB CHEMISTRY METHOD 10/06/2024 6:19 AM [facility] Calcium 6.3(L) 8.5 - 10.5 mg/dL LAB CHEMISTRY METHOD 10/06/2024 6:19 AM [facility] AST (SGOT) 45(H) 10 - 42 unit/L LAB CHEMISTRY METHOD 10/06/2024 6:19 AM [facility] ALT (SGPT) 31 10 - 60 unit/L LAB CHEMISTRY METHOD 10/06/2024 6:19 AM [facility] Alkaline Phosphatase 55 42 - 121 unit/L LAB CHEMISTRY METHOD 10/06/2024 6:19 AM [facility] Total Protein 5.5(L) 6.0 - 8.0 g/dL LAB CHEMISTRY METHOD 10/06/2024 6:19 AM EDT [facility] Albumin 2.5(L) 3.2 - 5.0 g/dL LAB CHEMISTRY METHOD 10/06/2024 6:19 AM EDT [facility] Total Bilirubin 0.3 0.0 - 1.4 mg/dL LAB CHEMISTRY METHOD 10/06/2024 6:19 AM EDT [facility] Blood Venous blood specimen / Unknown Venipuncture / Unknown 10/06/2024 5:02 AM EDT 10/06/2024 5:18 AM EDT us Ileana VIERA LAB BLOOD ORDERABLES Fin al Result [facility] [address] [place] [address], [place] [phone] * [place] [facility] 30-74 MINUTES (10/06/2024 1:07 AM EDT) Narrative Emeterio Bautista MD - 10/06/2024 1:07 AM EDT Emeterio Bautista MD 10/06/2024 6:26 AM Critical Care [...] the gastric antrum compatible with nonspecific gastritis. [facility] AYLIN ([id number]) -------- FINAL REPORT -------- Dictated By: Balbina Sparks Dictated Date: 10/04/2024 07:58 ET Assigned Physician: Balbina Sparks Reviewed and Electronically Signed By: Balbina Sparks Signed Date: 10/04/2024 08:05 ET Workstation ID: [id number] Transcribed By: Self Edit Transcribed Date: 10/04/2024 07:58 ET Narrative 10/04/2024 8:05 AM EDT History: Right-sided abdominal pain. Diarrhea. Known C. difficile infection. Comparison: 06/25/24 Technique: Helical volumetric imaging of the abdomen and pelvis was performed during the uneventful intravenous administration of 90 cc Isovue-370. DLP: 1169.72 mGy/cm [employer] NeurosciencespeAdrenaline Mobility VCT Iterative reconstruction technique Findings: The left [...] administration of 90 ccIsovue-370. DLP: 1169.72 mGy/cm [facility] Iterative reconstruction technique Findings: The left hepatic [...] of the gastric antrumcompatible with nonspecific gastritis. [facility] [place] ([id number]) -------- FINAL REPORT -------- Dictated By: Balbina Sparks Dictated Date: 10/04/2024 07:58 ET Assigned Physician: Balbina Sparks Reviewed and Electronically Signed By: Balbina Sparks Signed Date: 10/04/2024 08:05 ET Workstation ID: [id number] Transcribed By: Self Edit Transcribed Date: 10/04/2024 07:58 ET Emeterio Bautista MD IMG CT PROCEDURES Final Resu lt * hCG, serum, qualitative (10/04/2024 4:23 AM EDT) [facility] hCG Qual Negative Negative 10/04/2024 6:15 AM EDT [facility] Blood Venous blood specimen / Unknown Venipuncture / Unknown 10/04/2024 4:23 AM EDT 10/04/2024 5:11 AM EDT Emeterio Bautista MD LAB BLOOD ORDERABLES Final R esult [facility] [address] [place] [address], [place] [phone] * ECG-Annotated (09/06/2024) Provider Onbase ECG ORDERABLES Final Result * (ABNORMAL) Drug abuse screen 8a panel, urine (09/05/2024 5:43 AM EDT) [facility] Amphetamine Screen, Ur Negative Negative LAB CHEMISTRY METHOD 5 6:45 AM EDT [facility] Comment:Certain OTC medicati ons containing ephedrine, phenylephrine, pseudoephedrine and phenylpropanolamine can cause false positive results. Barbiturate Screen, Ur Negative Negative LAB CHEMISTRY METHOD 5 6:45 AM EDT [facility] Benzodiazepine Screen, Ur Negative Negative LAB CHEMISTRY METHOD 5 6:45 AM EDT [facility] Cocaine Screen, Ur Negative Negative LAB CHEMISTRY METHOD 5 6:45 AM EDT [facility] Opiate Screen, Ur Positive(A ) Negative LAB CHEMISTRY METHOD 5 6:45 AM EDT [facility] Cannabinoid (THC) Screen, Ur Negative Negative LAB CHEMISTRY METHOD 5 6:45 AM EDT [facility] Comment:Specimens from patie nts taking pantoprazole sodium (Protonix) have been shown to produce false positive results. Oxycodone Screen, Ur Negative Negative LAB CHEMISTRY METHOD 5 6:45 AM EDT [facility] Fentanyl, Ur Negative Negative LAB CHEMISTRY METHOD 5 6:45 AM EDT [facility] Urine Urine specimen obtained by clean catch procedure / Unknown Non-blood Collection / Unknown 09/05/2024 5:43 AM EDT 09/05/2024 6:02 AM EDT Narrative [facility] - 09/05/2024 6:45 AM EDT Assay cutoffs: Amphetamines 1000 ng/mL Barbiturates 200 ng/mL Benzodiazepines 200 ng/mL Cocaine 300 ng/mL Fentanyl 1 ng/mL Opiates 300 ng/mL Oxycodone 100 ng/mL THC 50 ng/mL Semi-quantitative assay for screening purposes only. Unconfirmed screening result should not be used for non-medical purposes. *ALTERNATE METHOD CONFIRMATION DONE UPON REQUEST ONLY* Ileana VIERA LAB URINE ORDERABLES Fin al Result [facility] [address] [place] [address], * POC , urine manually resulted (09/05/2024 5:28 AM EDT) HCG, Ur POC Negative Negative POC hCG Int QC Pass? Yes Yes Urine Urine specimen obtained by clean catch procedure / Unknown 09/05/2024 5:28 AM EDT Emeterio Bautista MD POINT OF CARE TEST ENTER/ALDEN T ORDERABLES Final Result * ECG 12 lead (09/05/2024 4:57 AM EDT) Pathologist [facility] Ventricular Rate ECG 111 BPM GEMUSE Atrial Rate 111 BPM GEMUSE P-R Interval 118 ms GEMUSE QRS Duration 72 ms GEMUSE Q-T Interval 328 ms GEMUSE QTc 446 ms GEMUSE P Wave [place] 72 degrees GEMUSE R [place] 43 degrees GEMUSE T [place] 53 degrees GEMUSE ECG Interpretation Sinus tachycardia Otherwise normal ECG When compared with ECG of 25-JUN-2024 06:16, No significant change was found Confirmed by James GLEASON YUFENG ([id number]) on 09/05/2024 7:13:06 PM GEMUSE 09/05/2024 4:57 AM EDT 09/05/2024 7:13 PM EDT Ileana VIERA ECG ORDERABLES Final Re sult Performing Organization Address City/[facility]/ZIP Co de Phone Number GEMUSE * Protime-INR (09/05/2024 4:07 AM EDT) [facility] Protime 11.2 10.6 - 13.9 sec LAB COAGULATION METHOD 09/05/2024 5:01 AM EDT [facility] INR 0.9 LAB COAGULATION METHOD 09/05/2024 5:01 AM EDT [facility] Blood Venous blood specimen / Unknown Venipuncture / Unknown 09/05/2024 4:07 AM EDT 09/05/2024 4:24 AM EDT Ileana VIERA LAB BLOOD ORDERABLES Fin al Result [facility] [address] [place] [address], [place] [phone] * D-dimer, quantitative (09/05/2024 4:07 AM EDT) Pathologist [facility] D-Dimer, Quant (D-DU) <150 <=230 ng/mL DDU LAB COAGULATION METHOD 09/05/2024 5:05 AM EDT [facility] Blood Venous blood specimen / Unknown Venipuncture / Unknown 09/05/2024 4:07 AM EDT 09/05/2024 4:24 AM EDT Narrative [facility] - 09/05/2024 5:05 AM EDT D-Dimer <230 ng/mL (D-Dimer units) is the threshold for exclusion of DVT/PE. D-Dimer may be elevated in: Critically ill, severely infected, trauma patients, DIC, acute CVA, acute [place], unstable angina, AF, old age, , and smoking. D-Dimer may be decreased with: Initiation of heparin therapy and oral anticoagulants. Ileana VIERA LAB BLOOD ORDERABLES Fin al Result Performing Organization Address [facility]/ZIP Co de Phone Number [facility] [address] [place] [address], [place] [phone] * Type and screen (09/05/2024 4:07 AM EDT) ABO Group AB 09/05/2024 6:19 AM EDT [facility] Rh Type Positive 09/05/2024 6:19 AM EDT [facility] Antibody Screen Negative 09/05/2024 6:19 AM EDT [facility] Blood Venous blood specimen / Unknown Venipuncture / Unknown 09/05/2024 4:07 AM EDT 09/05/2024 4:31 AM EDT Emeterio Bautista MD LAB BLOOD BANK TEST ORDERABL ES Final Result Performing Organization Address [facility]/ZIP Co de Phone Number [facility] [address] [place] [address], [place] [phone] * (ABNORMAL) Ammonia (09/05/2024 4:07 AM EDT) Ammonia 66(H) 11 - 35 mcmol/L LAB CHEMISTRY METHOD 09/05/2024 4:55 AM EDT [facility] Blood Venous blood specimen / Unknown Venipuncture / Unknown 09/05/2024 4:07 AM EDT 09/05/2024 4:23 AM EDT us Ileana VIERA LAB BLOOD ORDERABLES Fin al Result [facility] [address] [place] [address], [place] [phone] from Last 3 Months Insurance [facility] [employer] Advance Directives * Full Code - Default [...] currently active code status orders. Care Teams 21 Dealer Relationship Specialty Start Date End Date Alex Montesinos MD [address] [place] [address] [address] [place], [place] PCP - General Internal Medicine 10/04/24
[2024-12-06 23:26] LABS: MANUAL DIFF FLAG NO
[2024-12-06 23:27] LABS: Hematocrit 37.6 % (37.0-47.0); Hemoglobin 12.7 g/dl (12.0-16.0); Imm Gran Abs Auto 0.01 X10*3/uL (0.00-0.03); Imm Gran Pct Auto 0.2 % (0.0-0.4); Lymphocytes Absolute Auto 2.5 X10*3/uL (1.2-4.9); Mean Corpuscular HGB Conc 33.8 g/dl (31.0-35.0); Mean Corpuscular Hemoglobin 30.5 pg (27.0-33.0); Mean Corpuscular Volume 90.4 fL (80.0-98.0); NRBC Abs Auto 0.000 X10*3/uL (0.0-0.012); NRBC Pct Auto 0.0 /100WBC (0.0-0.2); Platelet Count 255 X10*3/uL (160-400); Red Blood Count 4.16 X10*6/uL (4.20-5.50); White Blood Count 4.6 X10*3/uL (4.8-10.8)
[2024-12-07 00:19] VITALS: BP 129/56; PULSE 104; RESP 18; TEMP 36.4; O2SAT 94
[2024-12-07 00:57] LABS: Alanine Aminotransferase 35 U/L (0-31); Albumin Level 4.5 g/dL (3.5-5.0); Alkaline Phosphatase 79 U/L (39-117); Anion Gap 18 (12-20); Aspartate Amino Transferase 58 U/L (5-31); Blood Urea Nitrogen 7 mg/dL (9-16); Calcium 8.5 mg/dL (8.4-10.2); Carbon Dioxide 25 mmol/L (22-29); Chloride 111 mmol/L (96-108); Creatinine Clr Calc Pharmacy 96.1; Estimated Glomerular Filt Rate > 60; Lipase 17 U/L (8-78); Potassium 3.8 mmol/L (3.3-5.1); Sodium 150 mmol/L (135-145); Total Protein 7.8 g/dL (6.5-8.0)
[2024-12-07 03:51] VITALS: BP 109/76; PULSE 97; RESP 14; TEMP 37.2; O2SAT 94
[2024-12-07] MEDS: Lidocaine HCl Viscous 2 % 15 ML SOLUTION PO (06:22)
[2024-12-07] MEDS: Magnesium Hydrox/Alum Hydrox 30 ML ORAL.SUSP PO (06:22)
[2024-12-07 06:27] VITALS: BP 134/89; PULSE 103; RESP 16; TEMP 36.6; O2SAT 95
[2024-12-07 07:45] LABS: Cannabinoid Screen Urine Not Detected (Not Detect)
[2024-12-07 08:11] VITALS: RESP 25
--- NOTE | 2024-12-07 08:15 | PC.NURSE ---
Pt refusing IV Tylenol for pain. Pt states I usually take Morphine or Dilaudid. MD Mcneal made aware. Pt medicated per MAR for pain. Pt ambulatory to bathroom independently with steady gait. Continues to endorse 10/10 RUQ abdominal pain. Call shaffer within reach, all needs met at this time.
[2024-12-07 08:30] LABS: Glucose, Whole Blood 80 mg/dL (60-115)
--- NOTE | 2024-12-07 08:54 | PC.NURSE ---
CT at bedside multiple times for scan. Pt stating I'm in too much pain, I can't lay flat. MD Mcneal aware. Pt medicated per APR with 2mg Morphine for pain. After pain medication administration, pt taken to CT scan. This RN informed by CT pt stating I'm not getting contrast without Benadyrl I have an allergy to it, I need IV Benadryl. Per AYLIN Montilla- ok to give contrast, IV Benadryl given @ 0615am by previous RN. Pt states I don't trust this I need benadryl. No staff members were made aware of pt allergy to contrast dye prior to CT scan- added to allergy list. Pt taken back to 13h d/t refusing CT scan. MD Mcneal aware.
--- NOTE | 2024-12-07 09:16 | PC.NURSE ---
Pt IV line removed, pt made aware pending d/c paperwork. Pt left ED w/o alerting staff- unable to obtain d/c vitals. MD Mcneal and staff accountant aware.
[2024-12-07 09:22] VITALS: BP 0/0; PULSE 0; RESP 0; TEMP -17.7; TEMP 0
== END 2024-12-07 09:16 | disposition left against medical advice (07) ==
PROVIDERS: Emergency Provider Emergency Medicine Emergency Medical Services
DX: R10.30 Lower abdominal pain, unspecified (principal); R11.0 Nausea; F10.129 Alcohol abuse with intoxication, unspecified; Y90.8 Blood alcohol level of 240 mg/100 ml or more; Z51.81 Encounter for therapeutic drug level monitoring; Z79.899 Other long term (current) drug therapy
CPT/HCPCS: 36415; 80053; 80307; 82947; 83690; 85025; 96361; 96374; 96375; 96376; 99285; J1171; J1200; J2270; J2405

== ENCOUNTER 2025-02-04 17:00 | Emergency (ER) | payer OTHER, SELFPAY ==
--- OUTSIDE RECORDS SUMMARY | 2025-01-30 15:46 | XMS_ITS | Continuity of Care Document ---
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 Role Phone Jaguar PITTS, Alex Talley Primary Care Physician [phone] Encounter [facility] ACCT R [id number] Date(s): 01/21/25 - 01/30/[address] [address]- Discharge Disposition: A-D/C Home Attending Physician: Gabino Solis MD Admitting Physician: Aurora Nichole MD Referring Physician: Not on Staff, Referring MD Encounter Type: Disch IP Allergies, Adverse Reactions, Alerts Substance Criticality Severity Reaction Reaction Severity Status CT Contrast Dye HIVES Acti ve ciprofloxacin rash Active Bee Stings hives Active Other Food Allergy 1 Active Toradol 2 hives Active 1[place]nut 2tolerates ibuprofen Functional Status Functional Status Assessment Assessment Assessment Component Result Effecti ve Date Charlie scale total score 22 01/30/25 Functional Status Assessment Assessment Assessment Component Result Effecti ve Date Total Falls Risk Score 0 Functional Status Assessment Assessment Assessment Component Result Effecti ve Date Total Falls Risk Score 2 Functional Status Assessment Assessment Assessment Component Result Effecti ve Date Charlie scale total score 20 01/28/25 Functional Status Assessment Assessment Assessment Component Result Effecti ve Date Total Falls Risk Score 1 Functional Status Assessment Assessment Assessment Component Result Effecti ve Date Charlie scale total score 18 01/29/25 Functional Status Assessment Assessment Assessment Component Result Effecti ve Date Unspecifed Functional Status Assessment Skin abnormality typ e (observable entity) Rash 01/27/25 Functional Status Assessment Assessment Assessment Component Result Effecti ve Date Unspecifed Functional Status Assessment Skin abnormality typ e (observable entity) Rash 01/27/25 Functional Status Assessment Assessment Assessment Component Result Effecti ve Date Unspecifed Functional Status Assessment Skin abnormality typ e (observable entity) Rash 01/27/25 Functional Status Assessment Assessment Assessment Component Result Effecti ve Date Total score [AUDIT] 4 01/21/25 Immunizations Given and Recorded Vaccine Date Status Refusal Reason SARS-CoV-2 (COVID-19) mRNA BNT-162b2 vac 06/28/20 Recorded Medications acetaminophen 325 mg oral tablet 975 mg, 3, tablet, By Mouth, 3 times a day, PRN, not to exceed 4000 mg/day, # 270 tablet, Refills 0, Tot. Refills 0, Maintenance, Pain , Mild, 11/10/24 1:42:00 PM EDT, Route to Pharmacy Electronically, [facility], Partial fill upon patient request if the prescription is for a schedule II opioid drug., 167, cm, 11/10/24 10:43:00 EDT, Height, 72.57, kg, 10/19/24 15:39:00 EDT, Dry Weight Start Date: 11/10/24 Stop Date: 12/10/24 Status: Ordered Medication Dispense Status: Completed Quantity: 270.0 Unit: tablet Total Allowed Fills: 1 Fills Dispensed: 0 amLODIPine 5 mg oral tablet 5 mg, By Mouth, Daily, # 30 tablet, Refills 0, Tot. Refills 0, Maintenance, 01/09/25 12:16:00 PM EST, Route to Pharmacy Electronically, [facility], Partial fill upon patient request if the prescription is for a schedule II opioid drug., 160, cm, 01/08/25 18:13:00 EST, Height, 64.6, kg, 01/08/25 18:13:00 EST, Dry Weight Start Date: 01/09/25 Status: Ordered Medication Dispense Status: Completed Quantity: 30.0 Unit: tablet Total Allowed Fills: 1 Fills Dispensed: 0 amLODIPine 5 mg oral tablet 5 mg, Tablet, By Mouth, 01/30/25 9:00:00 AM EST Start Date: 01/30/25 Stop Date: 01/30/25 Status: Completed Medication Dispense Status: Completed Total Allowed Fills: 1 Fills Dispensed: 0 Ativan 1 mg oral tablet = 1 mg, By Mouth, 2 times a day, PRN Anxiety, for 3 days, # 7 tablet, 0 Refills, Acute 02/02/25 11:50:00 AM EST, 01/30/25 11:50:00 AM EST, Tablet, [facility], Partial fill upon patient request if the prescription is for a schedule II opioid drug., 163, cm, 01/30/25 5:36:00 EST, Height,64.6, kg, 01/21/25 1:23:00 EST, Dry Weight Start Date: 01/30/25 Stop Date: 02/02/25 Status: Ordered Medication Dispense Status: Completed Quantity: 7.0 Unit: tablet Total Allowed Fills: 1 Fills Dispensed: 0 cholestyramine 4 g/4.8 g oral powder for reconstitution 1 pack/packet, By Mouth, 2 times a day, PRN Diarrhea, mix 1 scoopful or 1 packet in 2 to 6 oz of water, non-carbonated drink, soup, or pulpy fruit. stir well and drink., # 201.6 Gm, 0 Refills, Maintenance, 01/30/25 11:51:00 AM EST, REC Powder, [facility], Partial fill upon patient request if the prescription is for a schedule II opioid drug., 163, cm, 01/30/25 5:36:00 EST, Height, 64.6, kg, 01/21/25 1:23:00 EST, Dry Weight Start Date: 01/30/25 Stop Date: 02/09/25 Status: Ordered Medication Dispense Status: Completed Quantity: 201.6 Unit: g Total Allowed Fills: 1 Fills Dispensed: 0 gabapentin 300 mg oral capsule 900 mg, 3, capsule, By Mouth, 3 times a day, # 270 capsule, Refills 0, Tot. Refills 0, Maintenance,11/10/24 1:42:00 PM EDT, Route to Pharmacy Electronically, [facility], Partial fill upon patient request if the prescription is for a schedule II opioid drug., 167, cm, 11/10/24 10:43:00EDT, Height, 72.57, kg, 10/19/24 15:39:00 EDT, Dry Weight Start Date: 11/10/24 Stop Date: 12/10/24 Status: Ordered Medication Dispense Status: Completed Quantity: 270.0 Unit: capsule Total Allowed Fills: 1 Fills Dispensed: 0 gabapentin 300 mg oral capsule 900 mg, Capsule, By Mouth, 01/30/25 9:00:00 AM EST Start Date: 01/30/25 Stop Date: 01/30/25 Status: Completed Medication Dispense Status: Completed Total Allowed Fills: 1 Fills Dispensed: 0 ibuprofen 600 mg oral tablet 600 mg, 1, tablet, By Mouth, Every 6 hours, PRN, # 56 tablet, Refills 0, Tot. Refills 0, Maintenance, Pain , Moderate, 11/10/24 1:23:00 PM EDT, Route to Pharmacy Electronically, [facility], Partial fill upon patient request if the prescription is for a schedule II opioid drug., 167, cm, 11/10/24 10:43:00 EDT, Height, 72.57, kg, 10/19/24 15:39:00 EDT, Dry Weight Start Date: 11/10/24 Stop Date: 11/24/24 Status: Ordered Medication Dispense Status: Completed Quantity: 56.0 Unit: tablet Total Allowed Fills: 1 Fills Dispensed: 0 loperamide 2 mg oral capsule 2 mg, By Mouth, Every 3 hours, PRN, for 7 days, # 30 capsule, Refills 0, Tot. Refills 0, Acute 02/06/25 11:50:00 AM EST, Diarrhea, 01/30/25 11:50:00 AM EST, Route to Pharmacy Electronically, [facility], Partial fill upon patient request if the prescription is for a schedule II opioid drug., 163, cm, 01/30/25 5:36:00 EST, Height, 64.6, kg, 01/21/25 1:23:00 EST, Dry Weight Start Date: 01/30/25 Stop Date: 02/06/25 Status: Ordered Medication Dispense Status: Completed Quantity: 30.0 Unit: capsule Total Allowed Fills: 1 Fills Dispensed: 0 MiraLax oral powder for reconstitution = 17 Gm, By Mouth, Daily, PRN Constipation, # 250 Gm, 0 Refills, Maintenance, 11/10/24 1:27:00 PM EDT, REC Powder, [facility], Partial fill upon patient request if the prescription is for a schedule II opioid drug., 17 Gm By Mouth Daily,PRN:Constipation, 167, cm, 11/10/24 10:43:00 EDT,Height, 72.57, kg, 10/19/24 15:39:00 EDT, Dry Weight Start Date: 11/10/24 Status: Ordered Medication Dispense Status: Completed Quantity: 250.0 Unit: g Total Allowed Fills: 1 Fills Dispensed: 0 oxyCODONE 5 mg oral tablet See Instructions, PRN, 10 mg By Mouth Every 8 hours as needed for severe pain, # 12 tablet, Refills0, Tot. Refills 0, Acute 02/05/25 11:52:00 AM EST, Pain , Moderate, 01/30/25 11:50:00 AM EST, Instructions Replace Required Details, Route to Pharmacy Electronically, [facility], Partialfill upon patient request if the prescription is for a schedule II opioid drug., 163, cm, 01/30/25 5:36:00 EST, Height, 64.6, kg, 01/21/25 1:23:00 EST, Dry Weight Start Date: 01/30/25 Stop Date: 02/05/25 Status: Ordered Medication Dispense Status: Completed Quantity: 12.0 Unit: tablet Total Allowed Fills: 1 Fills Dispensed: 0 oxyCODONE 5 mg oral tablet 10 mg, Tablet, By Mouth, Every 4 hours, PRN for Pain , Moderate, Routine, 01/29/25 11:12:00 AM EST Start Date: 01/29/25 Stop Date: 02/05/25 Status: Ordered Medication Dispense Status: Completed Total Allowed Fills: 1 Fills Dispensed: 0 senna 187 mg oral tablet 1 tablet = 8.6 mg, By Mouth, 2 times a day, PRN constipation, # 60 tablet, 0 Refills, Maintenance, 11/10/24 1:25:00 PM EDT, Tablet, [facility], Partial fill upon patient request if the prescription is for a schedule II opioid drug., 167, cm, 11/10/24 10:43:00 EDT, Height, 72.57, kg, 10/19/24 15:39:00 EDT, Dry Weight Start Date: 11/10/24 Stop Date: 11/24/24 Status: Ordered Medication Dispense Status: Completed Quantity: 60.0 Unit: tablet Total Allowed Fills: 1 Fills Dispensed: 0 sucralfate 1 gm/10 ml oral suspension 10 mL = 1 Gm, By Mouth, 3 times a day before meals and bedtime, # 1,200 mL, 0 Refills, Maintenance,12/27/24 3:11:00 PM EST, Suspension, [facility], Partial fill upon patient request if the prescription is for a schedule II opioid drug., 166, cm, 12/27/24 14:32:00 EST, Height, 82.9, kg, 12/19/24 18:41:00 EDT, Dry Weight Start Date: 12/27/24 Status: Ordered Medication Dispense Status: Completed Quantity: 1200.0 Unit: mL Total Allowed Fills: 1 Fills Dispensed: 0 vancomycin 125 mg oral capsule = 125 mg, By Mouth, Every 6 hours, 2 weeks of 125 mg po every 6hours until 02/03/25. Then; 1 week of 125 mg po every 8 hours 1 week of 125 mg po every 12h 1 week of 125 mg po every 24 h 1 week of 125mg po every 48 h 1 week of 125 mg po every 72 hours then stop, # 68 tablet, 0 Refills, Acute 03/30/2610:47:00 AM EST, 01/30/25 11:47:00 AM EST, Capsule, [facility], Partial fill upon patient request if the prescription is for a schedule II opioid drug., 163, cm, 01/30/25 5:36:00 EST, Height, 64.6, kg, 01/21/25 1:23:00 EST, Dry Weight Start Date: 01/30/25 Stop Date: 03/30/25 Status: Ordered Medication Dispense Status: Completed Quantity: 68.0 Unit: tablet Total Allowed Fills: 1 Fills Dispensed: 0 Mental Status Mental Status Assessment Assessment Assessment Component Result Effecti ve Date Gilford coma score total 15 Mental Status Assessment Assessment Assessment Component Result Effecti ve Date Soco coma score total 15 Mental Status Assessment Assessment Assessment Component Result Effecti ve Date Soco coma score total 15 01/23/25 Problem List Condition Confirmation Course Effective Dates Status Health St atus Informant Alcohol dependence Confirmed Active Anemia Confirmed Active Anxiety Confirmed Active Clostridium difficile colitis Confirmed Active Gastric ulcer Confirmed Active GERD (gastroesophageal reflux disease) Confirmed Active H/O colectomy Confirmed Active History of GI bleed Confirmed Active History of colon cancer in adulthood Confirmed Active HTN (hypertension) Confirmed Active Neuropathy Confirmed Active Hepatic steatosis Confirmed Active Results Radiology Reports * Exam Date Time Procedure Performing Provider Status 01/29/25 5:05 PM US Doppler Ext Upper Venous Right Auth (Verified) Notes: (US Doppler Ext Upper Venous Right) Reason For Exam: Pain/Tenderness Extremities RESULT: US Doppler Ext Upper Venous Right US Doppler Ext Upper Venous Right Reason: Pain Tenderness Extremities; Order Comment: 01 29 2025 11:38:45 EST No answer from nurse. Try again later- [facility] - COMPARISON: None. IMAGING TECHNIQUE: Ultrasound examination of the upper extremity deep venous system was performed using grayscale, color, and spectral wave analysis including response to compression. Assessment includes the contralateral jugular and subclavian vein. FINDINGS: Internal jugular vein: Patent. No thrombosis. Subclavian vein: Patent. No thrombosis. Axillary vein: Patent. No thrombosis. Brachial vein: Patent. No thrombosis. Basilic vein: Patent. No thrombosis. Cephalic vein: Superficial thrombus noted in the cephalic vein in the forearm. No proximal thrombus. Contralateral internal jugular vein: Patent. No thrombosis. Contralateral subclavian vein: Patent. No thrombosis. IMPRESSION: Superficial thrombus noted in the cephalic vein below the elbow. An actionable message (Red) has been communicated via the [employer] system on 01/29/2025 7:47 PM, Message ID [id number]. WSN: [id number] Ordering Physician: Gabino Solis Dictated By: Jasper Jovel MD Dictated Date/Time: 01/29/25 7:47 pm Reviewed By: Jasper Jovel MD Signed By: Jasper Jovel MD Signed Date/Time: 01/29/25 7:47 pm Transcribed By: CARY Transcribed Date/Time: 01/29/25 7:45 pm * Exam Date Time Procedure Performing Provider Status 01/28/25 8:[address] Abd/Pelvis W/ IV Contrast Only Auth (Verified) Notes: (CT Abd/Pelvis W/ IV Contrast Only) Reason For Exam: Pain;Pain RESULT: CT Abd/Pelvis W/ IV Contrast Only CT Abd/Pelvis W/ IV Contrast Only Reason: Recurrent abd pain, h o cdiff. Pls administer benadryl before IV contrast TECHNIQUE: Spiral CT through the abdomen and pelvis with IV contrast formatted in 3 planes. 100 cc of Isovue 300 100cc vials was administered intravenously. This study was performed without oral contrast. Weight-based protocol using automatic tube modulation was used to optimize exposure parameters. CTDIvol Body: 18.40 mGy, DLP Body: 1071 mGy*cm. 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 Visualized Chest: Lung bases are clear. No pleural effusion. The heart is normal in size. No pericardial effusion. Chronic left breast calcification. Diaphragm: Normal. Liver: Normal morphology and attenuation. No suspicious lesion. Gallbladder: Absent consistent with prior cholecystectomy. Bile ducts: No biliary ductal dilation. Spleen: Normal. Pancreas: Normal. Adrenal glands: Normal. Kidneys and ureters: No hydronephrosis, stones, or suspicious masses. Bladder: Normal. Reproductive organs: Unremarkable. Stomach, small bowel, and large bowel: Normal stomach. 1.4 cm duodenal diverticulum adjacent to pancreatic head. Postoperative changes the small bowel right lower quadrant. Colonic diverticulosis. Intact sigmoid colon anastomosis. No obstruction or acute inflammation. Appendix: Normal. Peritoneum and retroperitoneum: No ascites or pneumoperitoneum. No omental or mesenteric lesions. Lymph nodes: No enlarged lymph nodes. Blood vessels: Mild vascular calcifications but no aneurysm. No evidence of venous thrombosis. Abdominal and pelvic wall: Unremarkable. Bones: No acute abnormality. Degenerative disc changes noted in the spine. IMPRESSION: No acute intra-abdominal abnormality. WSN: [id number] Ordering Physician: Gabino Solis Dictated By: Antione May MD Dictated Date/Time: 01/28/25 3:38 pm Reviewed By: Antione May MD Signed By: Antione May MD Signed Date/Time: 01/28/25 3:38 pm Transcribed By: CARY Transcribed Date/Time: 01/28/25 3:33 pm * Exam Date Time Procedure Performing Provider Status 01/28/25 8:[address] Head/Brain W/O Contrast Auth (Verified) Notes: (CT Head/Brain W/O Contrast) Reason For Exam: Headache(s);Headache(s) RESULT: CT Head/Brain W/O Contrast CT Head/Brain W/O Contrast INDICATION: Reason: Headache(s) - TECHNIQUE: Noncontrast head CT using axial technique and reconstructed in axial and coronal planes.Iterative reconstruction techniques are used to optimize dose and image quality. CTDIvol Head: 46.30 mGy, DLP Head: 773 mGy*cm. 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 BRAIN AND EXTRA-AXIAL SPACES: No parenchymal hemorrhage, midline shift, or mass effect. Becerra-white matter differentiation is wellpreserved. No acute infarct. Ventricles, sulci, and basilar cisterns are normal. No white matter lesions. No subarachnoid hemorrhage. No subdural or epidural collection. CALVARIUM, SKULL BASE, AND SOFT TISSUES: No fractures or suspicious bony lesions. The paranasal sinuses and mastoid air cells are clear. Visualized orbits and globes are intact. The extracranial soft tissues are unremarkable. IMPRESSION: No acute intracranial pathology. WSN: [id number] Ordering Physician: Gabino Solis Dictated By: Antione May MD Dictated Date/Time: 01/28/25 3:08 pm Reviewed By: Antione May MD Signed By: Antione May MD Signed Date/Time: 01/28/25 3:08 pm Transcribed By: CARY Transcribed Date/Time: 01/28/25 3:07 pm * Exam Date Time Procedure Performing Provider Status 01/27/25 5:01 PM Abdomen AP Auth ([facility] ed) Notes: (Abdomen AP) Reason For Exam: Pain RESULT: XR Abdomen AP XR Abdomen AP 1 view INDICATION/CLINICAL QUESTION: Reason: Pain; Clinical Question(s): Cdiff, looking for obstrutction, toix megacolon COMPARISON: None FINDINGS: Normal bowel gas pattern. No evidence of abnormal stool retention or obstruction. Moderate amount of stool within the right colon. No colonic wall thickening or abnormal distention is seen. Enteric anastomosis in the left pelvis. No evidence of pneumoperitoneum. No organomegaly, masses or calcifications. No acute bone findings. Surgical clips in the right upper quadrant. IMPRESSION: 1. Nonobstructive bowel gas pattern. 2. Colon does not appear thickened or abnormally distended. WSN: [id number] Ordering Physician: Gabino Solis Dictated By: Sonu Dexter MD Dictated Date/Time: 01/27/25 7:00 pm Reviewed By: Sonu Dexter MD Signed By: Sonu Dexter MD Signed Date/Time: 01/27/25 7:00 pm Transcribed By: CARY Transcribed Date/Time: 01/27/25 6:58 pm * Exam Date Time Procedure Performing Provider Status 01/24/25 12:[address] Abdomen and Pelvi s W/O Contrast Auth (Verified) Notes: (CT Abdomen and Pelvis W/O Contrast) Reason For Exam: Pain RESULT: CT Abdomen and Pelvis W/O Contrast CT Abdomen and Pelvis W/O Contrast Reason: Pain; Clinical Question(s): Recureent cdiff; Order Comment: - TECHNIQUE: Spiral CT through the abdomen and pelvis without IV contrast formatted in 3 planes. Thisstudy was performed without oral contrast. Weight- based protocol using automatic tube modulation was used to optimize exposure parameters. CTDIvol Body: 16.40 mGy, DLP Body: 947 mGy*cm. 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 Visualized Chest: Lung bases are clear. No pleural effusion. The heart is normal in size. No pericardial effusion. Diaphragm: Normal. Liver: Mild hepatomegaly. Otherwise unremarkable noncontrast appearance. Gallbladder: Surgically absent. Bile ducts: No biliary ductal dilation. Spleen: Normal. Pancreas: Normal. Adrenal glands: Normal. Kidneys and ureters: No hydronephrosis, stones, or noncontrast evidence of suspicious masses. Bladder: Normal. Reproductive organs: Unremarkable. Stomach, small bowel, and large bowel: Physiologic distention of the stomach. Small juxta probably duodenal diverticulum. Normal caliber small bowel loops without evidence of obstruction. Right lowerquadrant small bowel anastomosis. Mild distal colonic diverticulosis without acute diverticulosis. Uncomplicated rectosigmoid anastomosis. Appendix: Normal. Peritoneum and retroperitoneum: No ascites or pneumoperitoneum. No omental or mesenteric lesions. Lymph nodes: No enlarged lymph nodes. Blood vessels: Mild vascular calcifications but no aneurysm. Abdominal and pelvic wall: Abdominal wall and proximal thigh edema. Bones: No acute abnormality. Mild multilevel degenerative changes throughout the spine. IMPRESSION: 1. No acute abnormality in the abdomen or pelvis. 2. Diverticulosis without acute diverticulosis. WSN: [id number] Ordering Physician: Gabino Solis Dictated By: Will Ibanez MD Dictated Date/Time: 01/24/25 12:32 p Reviewed By: Will Ibanez MD Signed By: Will Ibanez MD Signed Date/Time: 01/24/25 12:32 pm Transcribed By: CARY Transcribed Date/Time: 01/24/25 12:20 pm * Exam Date Time Procedure Performing Provider Status 01/20/25 8:[address] Abdomen and Pelvi s W/O Contrast Auth (Verified) Notes: (CT Abdomen and Pelvis W/O Contrast) Reason For Exam: ?forneigers and obstruction;Pain RESULT: CT Abdomen and Pelvis W/O Contrast CT Abdomen and Pelvis W/O Contrast Hx of Present Illness: Patient coming from home, reports 3 days of abdominal pain above the umbillicus accompanied by diarrhea with scant amounts of blood. Hx of C diff.; Reason: Pain; ?forneigers and obstruction; TECHNIQUE: Spiral CT through the abdomen and pelvis without IV contrast formatted in 3 planes. Thisstudy was performed without oral contrast. Weight- based protocol using automatic tube modulation was used to optimize exposure parameters. CTDIvol Body: 9.65 mGy, DLP Body: 582 mGy*cm. COMPARISON: Multiple, most recent 01/05/2025. 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 Visualized Chest: Mild bibasilar atelectasis. No pleural effusion. The heart is normal in size. No pericardial effusion. Diaphragm: Normal. Liver: Normal. Gallbladder: Absent consistent with prior cholecystectomy. Bile ducts: No intrahepatic bile duct dilation. The common bile duct is mildly dilated measuring upto 1.2 cm, consistent with postcholecystectomy changes. Spleen: Normal. Pancreas: Normal. Adrenal glands: Normal. Kidneys and ureters: No hydronephrosis, stones, or noncontrast evidence of suspicious masses. Bladder: Normal. Reproductive organs: Unremarkable. Stomach, small bowel, and large bowel: Intact rectosigmoid anastomosis. Intact anastomosis in the region of the distal ileum. Small type I hiatal hernia. Otherwise the stomach is normal. Unchanged proximal duodenal diverticulum. Unchanged mildly dilated appearance of the ilium on either side of the anastomosis, likely postsurgical. Otherwise the small bowel is normal in caliber. No bowel obstruction. Scattered pancolonic diverticulosis without diverticulitis. Appendix: Normal. Peritoneum and retroperitoneum: No ascites or pneumoperitoneum. No omental or mesenteric lesions. Ill-defined haziness in the mid central mesentery. Lymph nodes: No enlarged lymph nodes. Blood vessels: Mild vascular calcifications but no aneurysm. Abdominal and pelvic wall: Nonspecific fat stranding along the right posterior proximal thigh (181/601). No associated skin thickening over this area. Bones: No acute abnormality. IMPRESSION: No acute abnormality in the abdomen or pelvis. I have personally reviewed the images and I agree with this report. WSN: [id number] Ordering Physician: Tahira Armendariz Dictated By: Amelia Crabtree MD Dictated Date/Time: 01/20/25 8:56 pm Reviewed By: Jasper Jovel MD Signed By: Jasper Jovel MD Signed Date/Time: 01/20/25 9:01 pm Transcribed By: CARY Transcribed Date/Time: 01/20/25 8:40 pm Vital Signs Most recent to oldest [Reference Range]: 1 2 3 Height 163 cm (01/30/25 5:01 AM) 163 cm (01/30/25 1:19 AM) 163 cm (01/29/25 8:15 PM) Weight 64.6 kg (01/21/25 1:09 AM) Oxygen Saturation [94-100 %] 98 % (01/30/25 1:00 PM) 96 % (01/30/25 8:00 AM) 100 % (01/30/25 5:01 AM) Pulse Rate [55-90 bpm] 94 bpm *H* (01/30/25 1:00 PM) 100 bpm *H* (01/30/25 8:00 AM) 79 bpm (01/30/25 5:01 AM) Body Mass Index [18.5-24.99 kg/m2] 24.31 kg/m2 (01/21/25 1:09 AM) Blood Pressure [90-138/55-84 mm Hg] 121/71mm Hg (01/30/25 1:00 PM) 132/83mm Hg (01/30/25 10:54 AM) 132/83mm Hg (01/30/25 8:00 AM) Respiratory Rate [16-30 br/min] 18 br/min (01/30/25 1:00 PM) 18 br/min (01/30/25 11:00 AM) 18 br/min (01/30/25 10:54 AM) Temperature [96.8-100.4 DegF] 98.7 DegF (01/30/25 1:00 PM) 98.5 DegF (01/30/25 8:00 AM) 97.9 DegF (01/30/25 5:01 AM) Mode of Delivery (Oxygen) Room air (01/30/25 1:00 PM) Room air (01/30/25 8:00 AM) Room air (01/30/25 5:01 AM) Blood pressure sites Arm, right (01/30/25 1:00 PM) Arm, right (01/30/25 8:00 AM) Arm, right (01/30/25 5:01 AM) Temperature Route Oral (01/30/25 1:00 PM) Oral (01/30/25 8:00 AM) Oral (01/30/25 5:01 AM) Dry Weight 64.6 kg (01/21/25 1:09 AM) Social History Social History Type Response Smoking Status Never (less than 100 in lifetime) entered on: 05/08/24 Sex Sex Representation Female (finding) Status Not Consult note * Octavia Monte DO: MODIFY, PERFORM Feliz PITTS, Kaylin: MODIFY Event Display: Consult Authored Date: [id number] Patient: ??ELADIA SCHREIBER ? Age:??49 Years?Sex:??Female?:??1975?LOC:??[facility]?? 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 Imaging showed no acute abnormalities and showed diverticulosis without acute diverticulitis.?? She was also found to have positive C. difficile toxin and was placed on a p.o. vancomycin taper per infectious disease recommendations.?? This is the patient's fifth admission for C. difficile infection/carrier.?? APS was consulted for management of her sharp nonradiating epigastric pain that she states frequently accompanies her C. difficile episodes. Review of Systems Denies headache, chest pain, SOB. Physical Exam Vitals & Measurements T:??99.2?F?? TMIN:??97.7?F?? TMAX:??99.2?F?? HR:??119??(Peripheral)?? RR:??18?? BP:??137/88?? SpO2:??97%?? Constitutional: Alert, in no distress. Mental Status: Oriented to person, place and time. Head: Normocephalic. Gastrointestinal: TTP in all 4 quadrants Neurologic: Cranial nerves II-XII grossly intact. No focal neurological deficits. Psychiatric: Normal mood and affect ?? 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 Imaging showed no acute abnormalities and showed diverticulosis without acute diverticulitis.?? She was also found to have positive C. difficile toxin and was placed on a p.o. vancomycin taper per infectious disease recommendations.?? This is the patient's fifth admission for C. difficile infection/carrier.?? APS was consulted for management of her sharp nonradiating epigastric pain that she states frequently accompanies her C. difficile episodes. ?? - Recommend scheduling oxycodone 10mg q4h, this will allow the patient to have more PO oxycodone and hopefully lead her to??need less IV pain medication over time - Continue tylenol 650mg TID, gabapentin 300mg TID, dilaudid 2mg IV q4h PRN ? Patient seen and discussed with ??Feliz ?? I, Dr Lawrence, ??have seen and evaluated this patient. ??I have discussed the case and its management with the fellow and agree with the findings and plan as documented in the fellow???s note. ?? Problem List/Past Medical History Ongoing Alcohol dependence Anemia Anxiety Clostridium difficile colitis Gastric ulcer GERD (gastroesophageal reflux disease) H/O colectomy Hepatic steatosis History of colon cancer in adulthood History of GI bleed HTN (hypertension) Neuropathy Procedure/Surgical History EGD - incomplete- food in stomach: 03/16/24 Medications Inpatient Acetaminophen(Acetaminophen Tablet), 650 mg, By Mouth, 3 times a day Acetaminophen/Butalbital/Caffeine(Fioricet Tablet), 2 tablet, By Mouth, 3 times a day, PRN Amlodipine(amLODIPine 5 mg oral tablet), 5 mg, By Mouth, Daily Cholestyramine(Cholestyramine Powder), 4 Gm, By Mouth, 2 times a day DiphenhydrAMINE(Benadryl Tablet), 25 mg, By Mouth, Every 4 hours, PRN Folic Acid(Folic Acid Tablet), 1 mg, By Mouth, Daily Gabapentin(gabapentin 300 mg oral capsule), 900 mg, By Mouth, 3 times a day Guaifenesin/Dextromethorphan(Robitussin DM Liquid), 10 mL, By Mouth, Every 4 hours, PRN Hydrocortisone Topical(HydroCORTisone Supp), 25 mg= 1 supp, Rectally, 2 times a day Hydromorphone(Dilaudid Inj), 2 mg= 1 mL, IV Push Slowly, Every 4 hours, PRN Loperamide(loperamide 2 mg oral capsule), 2 mg, By Mouth, Every 3 hours, PRN Lorazepam(Ativan 1 mg oral tablet), 1 mg, By Mouth, 2 times a day, PRN Melatonin(Melatonin Tablet), 3 mg, By Mouth, Daily at bedtime, PRN Multivitamin With Minerals(Multivit Therapeutic/Minerals Tablet), 1 tablet, By Mouth, Daily Nystatin Topical(Nystatin Powder), 1 application, Topically, 2 times a day Ondansetron(Zofran Inj), 4 mg, IV Push, Every 6 hours, PRN Oxycodone(oxyCODONE 5 mg oral tablet), 10 mg, By Mouth, Every 4 hours, PRN Pyridoxine(Pyridoxine Tablet), 50 mg, By Mouth, Daily Simethicone(Simethicone Tablet), 80 mg, Chew, 3 times a day, PRN Sodium Chloride(NaCL 0.9% Flush), 3 mL, IV Push, Every 8 hours Sodium Chloride(NaCL 0.9% Flush), 3 mL, IV Push, Every 8 hours, PRN Sucralfate(Carafate Suspension), 1 Gm= 10 mL, By Mouth, 3 times a day before meals and bedtime Thiamine(Thiamine Tablet), 100 mg, By Mouth, 2 times a day Vancomycin(Vancomycin Capsule), 125 mg, By Mouth, Every 6 hours Home Acetaminophen(acetaminophen 325 mg oral tablet), 975 mg= 3 tablet, By Mouth, 3 times a day, PRN Amlodipine(amLODIPine 5 mg oral tablet), 5 mg, By Mouth, Daily Gabapentin(gabapentin 300 mg oral capsule), 900 mg= 3 capsule, By Mouth, 3 times a day Ibuprofen(ibuprofen 600 mg oral tablet), 600 mg= 1 tablet, By Mouth, Every 6 hours, PRN Pantoprazole(pantoprazole 40 mg oral delayed release tablet), 40 mg, By Mouth, 2 times a day, 1 refills Polyethylene Glycol 3350(MiraLax oral powder for reconstitution), 17 Gm, By Mouth, Daily, PRN Senna(senna 187 mg oral tablet), 8.6 mg= 1 tablet, By Mouth, 2 times a day, PRN Simethicone(simethicone 80 mg oral tablet, chewable), 80 mg, Chew, 3 times a day, PRN Sucralfate(sucralfate 1 gm/10 ml oral suspension), 1 Gm= 10 mL, By Mouth, 3 times a day before meals and bedtime Vancomycin(vancomycin 125 mg oral capsule), 125 mg, By Mouth, Every 48 hours, 1 refills Allergies Bee Stings??hives CT Contrast Dye??HIVES Other Food Allergy Toradol??hives ciprofloxacin??rash Social History Alcohol Use:Never Electronic Cigarette/Vaping E-Cigarette Use:Never Employment/School Status:Retired Home/Environment Living situation:Home/Independent Substance Abuse Use:Current Type:Marijuana Tobacco Use:Never (less than 100 in lifetime) Immunizations Vaccine Date Status influenza virus vaccine, inactivated - Not Given Comments : Patient Refuses influenza virus vaccine, inactivated - Not Given Comments : Patient Refuses SARS-CoV-2 (COVID-19) mRNA BNT-162b2 vac 06/28/2020 Recorded * Lanny REYNA Ivette: MODIFY, PERFORM, MODIFY Event Display: Consultation Note Authored Date: Patient: ??ELADIA SCHREIBER ? Age:??49 Years?Sex:??Female?:??1975?LOC:??[facility]?? Referrring Provider Gabino Solis MD Chief Complaint Coming in with 3 days of diarrhea and ap above umbilicus. Hx C.Diffe. Also has been vomiting and has been having BRB in stool-scant amount noted when wiping Reason for Consultation Recurrent C. difficile complaint worsening pain with hematochezia, s/p ID eval on p.o. vancomycin History of Present Illness Ms. 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 Most recent labs show Anemia Hb 11.1 (baseline 11-13), hypokalemia 3.5, and hypomagnesemia 1.2. Lactate was elevated 2.8, now downtrending to 2.2. CTAP was unremarkable for any acute abnormalities and showed diverticulosis without acute diverticulitis. She was found to have positive C difficile toxin, ID wasconsulted, and recommended retreating patient with po vancomycin taper. This is the patient's 5th admission for C diff infection/carrier. ?? Patient was examined at bedside. She states that her baseline BMs are not fully solid, but she was having worsening diarrhea and solely liquid stool. Patient also states that she had some BRBPR both on the toilet paper and mixed in with her stools during some bowel movements.She has sharp nonradiating epigastric pain that is well controlled with pain medications, and frequently comes on with her C.diff episodes. She has also been having early satiety the last few weeks and states that her arms and legs have become thinner, while her abdomen has been bigger. Patient denies having any fevers, dizziness, dyspnea, chest pain, nausea/vomiting, melena, and dysuria. She has worsening pain in her buttock region from recurrent bowel movements. ?? GI History: ?? Patient has been seen by GI on multiple previous admissions and has followed up outpatient.?? Patient last seen by GI on 01/08/2025 for abdominal pain and ongoing diarrhea despite being C. difficile negative.?? At this time, patient was told to continue with supportive care, plan for repeat EGD dueto GE junction ulcer, and next colonoscopy due in 05/2029 for colorectal cancer screening every 5 years.?? There was some conversation of patient following up outpatient for a potential stool transplant. Patient has been seen by GI multiple times prior to abdominal pain, diarrhea, C diff, and melena. ?? -EGD completed on 03/16/2024 for melena showed normal esophagus with large amounts of food and semisolid food in the fundus and stomach body.? -EGD done on 04/11/2024 for coffee-ground emesis, melena, dyspepsia, and abnormal CT abdomen showed scarred and narrowing.?? Distal esophagus suspected from prior erosive esophagitis, benign-appearingstricture in GE junction, clean base ulcer in GE junction, irregularity measuring less than 1 cm inthe Z-line and GE junction edema and erythema in the stomach body and in the duodenum.?? There was no evidence of gastric outlet obstruction. ?? -Colonoscopy on 04/12/2024 for melena shows internal and external hemorrhoids, moderate diverticulosis of the entire colon, and stool in the colon due to poor preparation.? -Colonoscopy on 05/23/2024 shows internal hemorrhoids, moderate diverticulosis of the descending and sigmoid colon, in the descending colon s/p polypectomy, and previous colon surgery, otherwise normal. ?? Social History: Previous use of heavy alcohol, but states she drinks alcohol very rarely now. No past or present use of cigarettes, IV drugs, or recreational drugs. ?? Family History: History of colon cancer in both maternal and paternal grandparents, breast cancer in mother, and brain cancer in sister Review of Systems A full review of systems was completed and is otherwise negative except as mentioned above in HPI. Physical Exam Vitals & Measurements T:??99.0?F?? TMIN:??98.9?F?? TMAX:??99.3?F?? HR:??89??(Peripheral)?? RR:??18?? BP:??136/86?? SpO2:??97%?? Constitutional: Alert, in no distress. Mental Status: Oriented to person, place and time. Head: Normocephalic. Eyes: Pupils are equal, round Ear, Nose and Throat: Oropharynx clear, mucous membranes moist. Neck: Supple, Full range of motion. Respiratory: Clear to auscultation. No wheezing, rales or rhonchi. Cardiovascular: S1 S2 regular. No murmurs, rubs or gallops. Gastrointestinal: Abdomen soft, tender to palpation in epigastric region, non- distended. Normal bowel sounds. MICHELLE shows no stool in rectal vault, though limited assessment due to increased pain Neurologic: No focal neurological deficits.?? Skin: Rash in the buttocks and pain around rectal region from diarrhea Musculoskeletal: No gross deformities. Normal range of motion. 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 ?? #Hematochezia #Abdominal pain #Recurrent C. Difficile Infection ?? Patient has been having intermittent hematochezia, but hemoglobin is around her baseline despite minor drop. ??She states that her abdominal pain is related to her C. difficile and presents whenever she has an infection. ??This is the patient's 5th admission for C diff infection. ??Patient is beingfollowed by ID currently and is on a vancomycin taper.?? It seems that her diarrhea typically takessome time to resolve after completion of therapy.?? No indication for colonoscopy??at this time, however if patient continues to have??a significant drop in hemoglobin and??worsening hematochezia, can consider flexible sigmoidoscopy.?? Patient was supposed to??get??evaluated outpatient with ID for stool transplant therapy, so would??recommend??continue forward with that. ?? Recommendations: -Continue Vancomycin taper as per ID -Can add Imodium -if it's not working, can add cholestyramine -No need for colonoscopy at this time -Agree with Vowst therapy (FMT), as recommended by ID earlier during time for outpatient follow-up ?? GI team will sign off at this time. Please reach out for any questions/concerns. ?? Patient seen and discussed with GI Fellow Dr. Bermudez and attending physician??Dr. Florence. ?? Ivette Ca, DO PGY2 Internal Medicine? Problem List/Past Medical History Ongoing Alcohol dependence Anemia Anxiety Clostridium difficile colitis Gastric ulcer GERD (gastroesophageal reflux disease) H/O colectomy Hepatic steatosis History of colon cancer in adulthood History of GI bleed HTN (hypertension) Neuropathy Procedure/Surgical History EGD - incomplete- food in stomach: 03/16/24 Medications Inpatient Acetaminophen(Acetaminophen Tablet), 650 mg, By Mouth, 3 times a day Amlodipine(amLODIPine 5 mg oral tablet), 5 mg, By Mouth, Daily DiphenhydrAMINE(Benadryl Tablet), 25 mg, By Mouth, Every 4 hours, PRN Folic Acid(Folic Acid Tablet), 1 mg, By Mouth, Daily Gabapentin(gabapentin 300 mg oral capsule), 900 mg, By Mouth, 3 times a day Guaifenesin/Dextromethorphan(Robitussin DM Liquid), 10 mL, By Mouth, Every 4 hours, PRN Hydrocortisone Topical(HydroCORTisone Supp), 25 mg= 1 supp, Rectally, 2 times a day Hydromorphone(Dilaudid Inj), 2 mg= 1 mL, IV Push Slowly, Every 4 hours, PRN Lactated Ringers Injection 1,000 mL(LR 1,000 mL), 1000 mL, IV Infusion Lorazepam(Ativan Tablet), 1 mg, By Mouth, Every 2 hours, PRN Lorazepam(Ativan Tablet), 2 mg, By Mouth, Every 2 hours, PRN Lorazepam(LORazepam Tablet), 2 mg, By Mouth, Every hour, PRN Melatonin(Melatonin Tablet), 3 mg, By Mouth, Daily at bedtime, PRN Multivitamin With Minerals(Multivit Therapeutic/Minerals Tablet), 1 tablet, By Mouth, Daily Nystatin Topical(Nystatin Powder), 1 application, Topically, 2 times a day Ondansetron(Zofran Inj), 4 mg, IV Push, Every 6 hours, PRN Oxycodone(oxyCODONE 5 mg oral tablet), 5 mg, By Mouth, Every 6 hours, PRN Polyethylene Glycol 3350(MiraLax Powder), 17 Gm= 1 pack/packet, By Mouth, Daily, PRN Potassium Chloride(Potassium Chloride Packet), 40 mEq, By Mouth, Daily Pyridoxine(Pyridoxine Tablet), 50 mg, By Mouth, Daily Senna(Senna Tablet), 8.6 mg= 1 tablet, By Mouth, 2 times a day, PRN Simethicone(Simethicone Tablet), 80 mg, Chew, 3 times a day, PRN Sodium Chloride(NaCL 0.9% Flush), 3 mL, IV Push, Every 8 hours Sodium Chloride(NaCL 0.9% Flush), 3 mL, IV Push, Every 8 hours, PRN Sucralfate(Carafate Suspension), 1 Gm= 10 mL, By Mouth, 3 times a day before meals and bedtime Thiamine(Thiamine Tablet), 100 mg, By Mouth, 2 times a day Vancomycin(Vancomycin Capsule), 125 mg, By Mouth, Every 6 hours Home Acetaminophen(acetaminophen 325 mg oral tablet), 975 mg= 3 tablet, By Mouth, 3 times a day, PRN Amlodipine(amLODIPine 5 mg oral tablet), 5 mg, By Mouth, Daily Gabapentin(gabapentin 300 mg oral capsule), 900 mg= 3 capsule, By Mouth, 3 times a day Ibuprofen(ibuprofen 600 mg oral tablet), 600 mg= 1 tablet, By Mouth, Every 6 hours, PRN Pantoprazole(pantoprazole 40 mg oral delayed release tablet), 40 mg, By Mouth, 2 times a day, 1 refills Polyethylene Glycol 3350(MiraLax oral powder for reconstitution), 17 Gm, By Mouth, Daily, PRN Senna(senna 187 mg oral tablet), 8.6 mg= 1 tablet, By Mouth, 2 times a day, PRN Simethicone(simethicone 80 mg oral tablet, chewable), 80 mg, Chew, 3 times a day, PRN Sucralfate(sucralfate 1 gm/10 ml oral suspension), 1 Gm= 10 mL, By Mouth, 3 times a day before meals and bedtime Vancomycin(vancomycin 125 mg oral capsule), 125 mg, By Mouth, Every 48 hours, 1 refills Allergies Bee Stings??hives CT Contrast Dye??HIVES Other Food Allergy Toradol??hives ciprofloxacin??rash Social History Alcohol Use:Never Electronic Cigarette/Vaping E-Cigarette Use:Never Employment/School Status:Retired Home/Environment Living situation:Home/Independent Substance Abuse Use:Current Type:Marijuana Tobacco Use:Never (less than 100 in lifetime) Electronically Signed on 01/24/25 07:39 PM Ivette Ca DO * Rosy Florence MD: PERFORM Event Display: Consultation Note Authored Date: [id number] I saw and evaluated the patient. Discussed with the resident and agree with the findings and plan as documented in the resident's note.?? imodium as needed needs outpatient ID follow up for Vowst or FMT given recurrent c.diff episodes (>2nd recurrence microbiome manipulation recommended by ACG/IDSA 2020?? c.diff guidelines which were written before the availability of pharmaceutical microbiota quaker therapeutics like rebyota or vowst (fermicutes spores), the latter of which can be prescribed after evaluation in ID office if they see fit. ?? Electronically Signed on 01/25/25 08:43 PM Rosy Florence MD * Anne-Marie Wong RN: PERFORM, SIGN, VERIFY, MODIFY, SIGN Event Display: Consultation Note Authored Date: [id number] Patient: ELADIA SCHREIBER Age: 49 years Sex: Female : 1975 Associated Diagnoses: None Author: Anne-Marie Wong RN History of Presenting Problem Date of Service 01/24/2025 Reason for referral Wound: Description Location: bilateral buttocks Etiology: resolved fungal dermatitis Description: intact skin with epidermal peeling at edges Measurements: diffuse Drainage: none Odor: none Edges: irregular; defined; attached Periwound: intact; no erythema, induration or fluctuance Pain: denies Goal of treatment: silicone cream for breathable barrier to frequent stooling . buttock 12/22/24 buttocks 12/23/24 buttock 01/24/25 Received wound RN consult to assess bilateral back wound and provide appropriate topical wound care recommendations. Patient recently admitted to [facility] with c/o abdominal pain, rash and diarrhea. Noted to have temp 100.5F. Dx with c-diff. She has a PMH significant for colon CA s/p resection, recurrent c-diff and GIB. Upon entry into patient's room, she is found lying in bed, alert and oriented x 4. Role of wound RNis explained and she is amenable to continuing with consult and photodocumentation. She tells me it's my buttocks, not my back . She states that the area is improving but still itches sometimes. Shehas a tube of zinc oxide at her bedside which she is applying to the area per direct care RN. Patient is able to turn onto her right side so that her buttock area could be assessed and is described as above. It appears that Eladia has had this area of fungal dermatitis since 12/22. Compared to the image today, skin has drastically improved. Suggested changing from zinc as zinc tends to dry skin out with overuse. Suggested silicone cream instead and educated her on the including benefits of it as described above. She verbalized understanding. I gave Eladia a tube of cream and states she will apply it herself. Update provided to direct care RNs. [place] text sent to Dr Solis Recommendations: 1. buttocks- Cleanse with ph balanced skin cleanser. Pat dry. Apply silicone cream (Prevent; blue cap) to affected area 2x/day and as needed after incontinence episodes Please reconsult wound RN for deterioration in wound/skin status. Plan Patient Teaching Discussed plan of care with RN Time spent 16-30 minutes Electronically Signed on 01/24/25 02:56 PM Anne-Marie Wong RN Electronically Signed on 01/24/25 02:58 PM Anne-Marie Wong RN, MD, Odalys Serna: PERFORM Event Display: Consultation Note Authored Date: Patient: ??ELADIA SCHREIBER ? Age:??49 Years?Sex:??Female?:??1975?LOC:??[facility]?? Reason for Consultation C.diff recurrence Requested by Nicole Briceño MD Source of Information patient, chart History of Present Illness The patient is a 49-year-old woman with history of alcohol use disorder, anxiety, depression, partial colectomy for colon cancer in 2012 and recurrent C. difficile infection with multiple admissions to the hospital who was readmitted on 01/21/2025 with increased diarrhea in the last few days.?? Thepatient had been completing a vancomycin taper given her history of recurrent C. difficile.?? She reported that this was completed over a week ago.?? She said around the time of completion she was having her baseline bowel movements which are never solid, but that in the last few days before comingto the hospital she had very liquid stool.?? She did note some blood.?? She also had abdominal cramp ing, nausea and subjective chills.?? She just felt more rundown than usual. ?? The patient also follows closely with gastroenterology and was seen on prior admissions with outpatient follow-up planned per chart documentation. ?? On evaluation at bedside, the patient reports she still having very loose stool.?? She has rawness around her bottom area from frequent liquid stool.?? She still has abdominal tenseness but no severe pain. Review of Systems as above and otherwise negative review of systems Physical Exam Vitals & Measurements Vital Signs?? Temperature: 98.9 DegF (01/21/25 13:00:00) Temperature Route: Oral (01/21/25 13:00:00) Pulse Rate:??101 bpm??High (01/21/25 13:00:00) Respiratory Rate: 18 br/min (01/21/25 14:25:00) Respiratory Rate: 18 br/min (01/21/25 14:25:00) Systolic Blood Pressure:??158 mm Hg??High (01/21/25 13:00:00) Diastolic Blood Pressure:??93 mm Hg??High (01/21/25 13:00:00) Blood pressure sites: Arm, left (01/21/25 13:00:00) Mean Arterial Pressure: 87 mm Hg (01/21/25 01:09:00) Pulse Pressure: 65 mm Hg (01/21/25 13:00:00) Oxygen Saturation: 96 % (01/21/25 13:00:00) Mode of Delivery (Oxygen): Room air (01/21/25 13:00:00) Early Warning Score: 1 (01/21/25 14:29:16) General: Alert, NAD, interactive Head: Normocephalic Eyes: Pupils are equal, round, no icterus, no conjunctivitis Ear, Nose and Throat: Oropharynx clear, mucous membranes moist; Cardiovascular:??Heart rate regular, rhythm regular.?? Gastrointestinal: Abdomen soft, non-tender, non-distended;?? Neurologic: Face symmetric, moves all extremities Skin: buttock dry erythema with wound cream applied?? Musculoskeletal: No cyanosis or clubbing; no joint effusions;no gross deformities; Psychiatric: Normal mood and affect; good insight ?? Assessment/Plan Assessment:??The patient is a 49-year-old woman??history of alcohol use disorder, anxiety, depression, partial colectomy for colon cancer in 2012 and recurrent C. difficile infection with multiple admissions to the hospital who was readmitted on 01/21/2025 with increased diarrhea in the last few days and a positive C.difficile toxin, GDH indeterminate.? On 01/06/2025, 12/20/2024 , 11/24/2024 the patient had a negative C. difficile toxin PCR. ?? Buttock wound on evaluation today does not appear infected, but more likely dermatitis, pressure wound in the setting of stool incontinence. ?? Impression: Recurrent C.difficile diarrhea, hx??of partial colectomy, hx??colon cancer ?? -- recommend retreating C.difficile with PO vancomycin and taper -- and follow up in ID or GI clinic to discuss fecal microbiota therapy: ?2 weeks of 125 mg po every 6hours ?1 week of 125 mg po every 8 hours ?1 week of 125 mg po every 12h ?1 week of 125 mg po every 24 h ?1 week of 125 mg po every 48 h ?1 week of 125 mg po every 72 hours then stop -- monitor CBC, CMP -- consider GI consult if failure to improve or worsening -- wound care and monitoring of bilateral buttock ?? ID will sign off. Please tiger text with questions.??Thank you for this consult. ? Problem List/Past Medical History Ongoing Alcohol dependence Anemia Anxiety Clostridium difficile colitis Gastric ulcer GERD (gastroesophageal reflux disease) H/O colectomy Hepatic steatosis History of colon cancer in adulthood History of GI bleed HTN (hypertension) Neuropathy Procedure/Surgical History EGD - incomplete- food in stomach: 03/16/24 Medications Inpatient Acetaminophen(Acetaminophen Tablet), 650 mg, By Mouth, Every 4 hours, PRN Amlodipine(amLODIPine 5 mg oral tablet), 5 mg, By Mouth, Daily DiphenhydrAMINE(Benadryl Tablet), 25 mg, By Mouth, Every 4 hours, PRN Folic Acid(Folic Acid Tablet), 1 mg, By Mouth, Daily Gabapentin(gabapentin 300 mg oral capsule), 900 mg, By Mouth, 3 times a day Guaifenesin/Dextromethorphan(Robitussin DM Liquid), 10 mL, By Mouth, Every 4 hours, PRN Hydromorphone(Dilaudid Inj), 1 mg= 1 mL, IV Push Slowly, Every 4 hours, PRN Lorazepam(Ativan Tablet), 1 mg, By Mouth, Every 2 hours, PRN Lorazepam(Ativan Tablet), 2 mg, By Mouth, Every 2 hours, PRN Lorazepam(LORazepam Tablet), 2 mg, By Mouth, Every hour, PRN Melatonin(Melatonin Tablet), 3 mg, By Mouth, Daily at bedtime, PRN Multivitamin With Minerals(Multivit Therapeutic/Minerals Tablet), 1 tablet, By Mouth, Daily Nystatin Topical(Nystatin Powder), 1 application, Topically, 2 times a day Ondansetron(Zofran Inj), 4 mg, IV Push, Every 6 hours, PRN Oxycodone(oxyCODONE 5 mg oral tablet), 5 mg, By Mouth, Every 6 hours, PRN Pantoprazole(pantoprazole 40 mg oral delayed release tablet), 40 mg, By Mouth, 2 times a day Polyethylene Glycol 3350(MiraLax Powder), 17 Gm= 1 pack/packet, By Mouth, Daily, PRN Potassium Chloride(Potassium Chloride Packet), 40 mEq, By Mouth, Once Pyridoxine(Pyridoxine Tablet), 50 mg, By Mouth, Daily Senna(Senna Tablet), 8.6 mg= 1 tablet, By Mouth, 2 times a day, PRN Simethicone(Simethicone Tablet), 80 mg, Chew, 3 times a day, PRN Sodium Chloride(NaCL 0.9% Flush), 3 mL, IV Push, Every 8 hours Sodium Chloride(NaCL 0.9% Flush), 3 mL, IV Push, Every 8 hours, PRN Sodium Chloride 0.9% 1,000 mL(0.9% NaCL 1,000 mL), 1000 mL, IV Infusion Sucralfate(Carafate Suspension), 1 Gm= 10 mL, By Mouth, 3 times a day before meals and bedtime Thiamine(Thiamine Tablet), 100 mg, By Mouth, 2 times a day Vancomycin(Vancomycin Capsule), 125 mg, By Mouth, Every 48 hours Home Acetaminophen(acetaminophen 325 mg oral tablet), 975 mg= 3 tablet, By Mouth, 3 times a day, PRN Amlodipine(amLODIPine 5 mg oral tablet), 5 mg, By Mouth, Daily Gabapentin(gabapentin 300 mg oral capsule), 900 mg= 3 capsule, By Mouth, 3 times a day Ibuprofen(ibuprofen 600 mg oral tablet), 600 mg= 1 tablet, By Mouth, Every 6 hours, PRN Pantoprazole(pantoprazole 40 mg oral delayed release tablet), 40 mg, By Mouth, 2 times a day, 1 refills Polyethylene Glycol 3350(MiraLax oral powder for reconstitution), 17 Gm, By Mouth, Daily, PRN Senna(senna 187 mg oral tablet), 8.6 mg= 1 tablet, By Mouth, 2 times a day, PRN Simethicone(simethicone 80 mg oral tablet, chewable), 80 mg, Chew, 3 times a day, PRN Sucralfate(sucralfate 1 gm/10 ml oral suspension), 1 Gm= 10 mL, By Mouth, 3 times a day before meals and bedtime Vancomycin(vancomycin 125 mg oral capsule), 125 mg, By Mouth, Every 48 hours, 1 refills Antimicrobials History Stopped Antimicrobials Stop Date/Time Last Administered First Administered ceFAZolin??2 Gm, IV Push, Once 01/20/2025 22:21 01/20/2025 22:21 01/20/2025 22:21 Allergies Bee Stings??hives CT Contrast Dye??HIVES Other Food Allergy Toradol??hives ciprofloxacin??rash Social History Alcohol Use:Never Electronic Cigarette/Vaping E-Cigarette Use:Never Employment/School Status:Retired Home/Environment Living situation:Home/Independent Substance Abuse Use:Current Type:Marijuana Tobacco Use:Never (less than 100 in lifetime) Immunizations Vaccine Date Status influenza virus vaccine, inactivated - Not Given Comments : Patient Refuses influenza virus vaccine, inactivated - Not Given Comments : Patient Refuses SARS-CoV-2 (COVID-19) mRNA BNT-162b2 vac 06/28/2020 Recorded Electronically Signed on 01/21/25 04:51 PM Baylee PITTS, Odalys Serna History and physical note * Livier Solis DO S: PERFORM, MODIFY, MODIFY, MODIFY, MODIFY, MODIFY, MODIFY, MODIFY Event Display: History and Physical Hospital Authored Date: Patient: ??SCHREIBER, ELADIA ? Age:??49 Years?Sex:??Female?:??1975?LOC:??[facility]?? Chief Complaint/Reason for Consultation Coming in with 3 days of diarrhea and ap above umbilicus. Hx C.Diffe. Also has been vomiting and has been having BRB in stool-scant amount noted when wiping History of Present Illness This is a 49-year-old female with past medical history including alcohol use disorder, partial colectomy for colon cancer in 2012, anxiety and depression, history of recurrent C. difficile colitis, and multiple admissions for abdominal pain and diarrhea, who currently presents to the hospital with complaint of increased diarrhea over the past few days, with occasional blood in the stool, as well as complaint of rash on her buttocks bilaterally.?? The patient was recently hospitalized here from January 08 to January 09 with similar complaint of abdominal pain and blood in her stool.?? She has a history of colorectal cancer in the sigmoid colon in 2012, and since that time has had normally 5-10 episodes of watery diarrhea a day.?? She sometimes will have blood in her stool.?? She also describes some symptoms of nausea and vomiting associated with the diarrhea.?? On recent hospital stay here, she was seen by GI.?? She had prior colonoscopy most recently done on May 23, 2024 which showed moderate diverticulosis of descending colon and sigmoid colon, with a 2 mm polyp in the descending colon which was resected.?? Random biopsies of the colon were noted to be normal with no concern for microscopic colitis or IBD.?? Given this, GI did not feel that she warranted repeat colonoscopy.?? They did recommend outpatient EGD given history of GE junction ulcer.?? The patient was noted today in the ED to have stable vital signs, though initially she did have some mild tachycardia.?? Lab work obtained on the patient showed a white blood cell count of 9.7 with a hemoglobin of 12.2 and platelet count of 288.?? Chemistry panel was notable for low potassium of 3.3 with an elevated anion gap of 18 and normal bicarb at 22.?? Glucose was 115 and BUN and creatinine were normal.?? The patient's LFTs showed slight elevation in her AST to 34, and this has been slightly elevated in the past aswell.?? Lactate was initially 2.9 and subsequently 2.4.?? High sensitive troponin was less than 6 and TSH was 2.45.?? Stool studies including GI profile and C. difficile were ordered and pending.?? Blood cultures were also obtained and pending.?? She did undergo CT scan of her abdomen pelvis in theED that showed no acute abnormality.?? Regarding the rash on her buttocks, the patient was given a dose of cefazolin to cover for cellulitis.?? She is now admitted for further management. Review of Systems A complete review of systems was obtained and noted to be negative except as stated above in the HPI. Objective Measurements?? Height: 163 cm (01/21/25) Weight: 64.6 kg (01/21/25) Dry Weight: 64.6 kg (01/21/25) Body Mass Index: 24.31 kg/m2 (01/21/25) ? Vital Signs?? Temperature: 98.6 DegF (01/21/25 01:09:00) Temperature Route: Oral (01/21/25:09:) Pulse Rate: 84 bpm (01/21/25:09:00) Respiratory Rate: 17 br/min (01/21/25:09:) Systolic Blood Pressure: 114 mm Hg (01/21/25:09:) Diastolic Blood Pressure: 74 mm Hg (01/21/25:09:) Blood pressure sites: Arm, left (01/21/25:09:) Mean Arterial Pressure: 87 mm Hg (01/21/25:09:) Pulse Pressure: 40 mm Hg (01/21/25:09:) Oxygen Saturation: 99 % (01/21/25:09:) Mode of Delivery (Oxygen): Room air (01/20/25 23:51:00) Early Warning Score: 0 (01/21/25:23:22) ? Physical Exam General: Alert, in no acute cardiopulmonary distress. Mental Status: Oriented to person, place and time. Normal affect. Head: Normocephalic. Eyes: Pupils are equal, round and reactive to light. Extraocular muscles intact. Ear, Nose and Throat: Oropharynx clear, mucous membranes moist. Ears and nose without masses, lesions or deformities. Trachea midline. Neck: Supple, Full range of motion. Respiratory: Clear to auscultation and percussion. No wheezing, rales or rhonchi. Cardiovascular: Heart sounds normal. Regular rate and rhythm, no murmurs, rubs or gallops. Gastrointestinal: Abdomen soft, non-tender, non-distended. Normal bowel sounds. No pulsatile mass. No hepatosplenomegaly. Neurologic: Cranial nerves II-XII grossly intact. No focal neurological deficits. Moves all extremities spontaneously. Sensation intact bilaterally. Skin:??Mild erythema??noted on bilateral buttocks??with dry skin with some??exfoliation noted. No petechiae or purpura. No edema. Musculoskeletal: No cyanosis or clubbing. No gross deformities. Normal range of motion. Assessment/Plan Assessment:??This is a 49-year-old female with past medical history as noted above,??who currently presents to the hospital??with complaint of worsening diarrhea, occasionally with??red blood, along with??a painful??rash on her??buttocks. ?? Diarrhea (R19.7) Hematochezia (K92.1) Abdominal pain (R10.9) ? This patient will be admitted to an observation??medical bed.??She presents with??abdominal pain and associated??diarrhea??and occasional episodes of hematochezia.??She does have a history of partial colectomy??secondary to colon cancer in the past, as well as chronic diarrhea??ever sinceher colon resection.??She has presented multiple times with??similar episodes of diarrhea with associated abdominal pain??and blood in her stool.??She has had 2??colonoscopies earlier this year, withthe most recent in May 2024??that showed??internal hemorrhoids??and??diverticulosis of descendingcolon and sigmoid colon.??Random colon biopsies were noted to be??normal with no evidence of microscopic colitis or IBD.??Agree with obtaining stool studies as already ordered in the ED.??When she was recently hospitalized here earlier this month, GI??saw her and felt that her??diarrhea and abdominal pain may be related to autonomic neuropathy.??They did not feel that she warranted repeat colonosc opy??at that time.??Will continue to??follow her and treat her abdominal pain??with??as needed painmedicine. ?? 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 difficile colitis infection in the past, and??is currently on??oral vancomycin taper, which we will continue. ?? ?Cellulitis (L03.90) Dermatitis associated with moisture from stool incontinence??(L25.8) Patient noted to have mild erythema??of her??bilateral buttocks region, with??areas of??dry skin??with associated??peeling,??but no clear rash or cellulitis??appreciated.??She was initiated on cefazolin in the ED cover for cellulitis, but we will hold??on further antibiotics presently and monitor this area.?? Prior imaging from December 23 shows similar changes to what she has presently.?? Most likely this is just dermatitis associated to??her stool incontinence/frequency. ?? Hypertension (I10) Will continue patient on amlodipine as she normally takes. ?? Anxiety (F41.9) Chronic pain (G89.29) ? Will continue patient on??home medicines including clonazepam,??trazodone, gabapentin, and cyclobenzaprine. ?? VTE Prophylaxis Given patient's episodes of blood per rectum,??we will hold off on pharmacological DVT prophylaxis presently??and encourage early mobilization. ?? Code Status Confirmed with the patient that she is a full code. ?? Patient seen on January 21, 2025.?? Total time spent with patient and in coordination of care: including reviewing the chart/medical records, speaking with the patient, formulating and discussing the treatment plan, and documenting the findings and encounter: ??70 + min ?? Addendum:??Patient also noted to have??hypokalemia (E87.6), which we will supplement and follow labs in the morning. Histories Allergies Allergies ?(Active and Proposed Allergies Only) Toradol? (Severity: Unknown severity, Onset: Unknown) ?Reactions: hives ?Comments: tolerates ibuprofen Other Food Allergy? (Severity: Unknown severity, Onset: Unknown) ?Comments: [place] CT Contrast Dye? (Severity: Unknown severity, Onset: Unknown) ?Reactions: HIVES ciprofloxacin? (Severity: Unknown severity, Onset: Unknown) ?Reactions: rash Bee Stings? (Severity: Unknown severity, Onset: Unknown) ?Reactions: hives ? Past Medical History/Problem List Active Problems(12) Alcohol dependence Anemia Anxiety Clostridium difficile colitis Gastric ulcer GERD (gastroesophageal reflux disease) H/O colectomy Hepatic steatosis History of colon cancer in adulthood History of GI bleed HTN (hypertension) Neuropathy ? Past Surgical History EGD - incomplete- food in stomach: 03/16/24 Cholecystectomy Left oophorectomy Partial colectomy for colon cancer in 2012 ?? Social History Patient lives with her best friend Alcohol Details:??Use: Current. ??Frequency: Patient reports??drinking red wine??and per prior records,??she drinks??3-5 times per week. ??Type: Wine, Liquor. ??Alcohol use in household: Yes. ??Previous treatment: Alcoholics Anonymous, Inpatient, Outpatient. ??Alcohol use interferes with work or home: Yes.??Drinks more than intended: Yes. ??Others hurt by drinking: Yes. ??Binge drinking: No. Substance Abuse Details:??Use: Current. ??Type: Marijuana??Gummies. Tobacco Details:??Use: Never (less than 100 in lifetime). Electronic Cigarette/Vaping Details:??Electronic Cigarette Use: Never. ?? Family Medical History Father at 82 with colon cancer. ??Mother living at 73 with breast cancer. ? Medications Home Medications Acetaminophen (acetaminophen 325 mg oral tablet)??975 Milligram 3 tablet By Mouth 3 times a day as needed not to exceed 4000 mg/day Pain , Mild Amlodipine (amLODIPine 5 mg oral tablet)??5 Milligram By Mouth Daily Gabapentin (gabapentin 300 mg oral capsule)??900 Milligram 3 capsule By Mouth 3 times a day for 30 Days Ibuprofen (ibuprofen 600 mg oral tablet)??600 Milligram 1 tablet By Mouth Every 6 hours as needed for 14 Days Pain , Moderate Pantoprazole (pantoprazole 40 mg oral delayed release tablet)??40 Milligram By Mouth 2 times a day for 30 Days Polyethylene Glycol 3350 (MiraLax oral powder for reconstitution)??17 gram By Mouth Daily as neededConstipation Senna (senna 187 mg oral tablet)??1 tab(s) 8.6 Milligram By Mouth 2 times a day as needed constipation Simethicone (simethicone 80 mg oral tablet, chewable)??80 Milligram Chew 3 times a day as needed Gas Sucralfate (sucralfate 1 gm/10 ml oral suspension)??10 Milliliter 1 gram By Mouth 3 times a day before meals and bedtime Vancomycin (vancomycin 125 mg oral capsule)??125 Milligram By Mouth Every 48 hours for 30 Days Doses over 125 mg require ID consult. Indication for Use: C. difficile colitis ? Results Recent Labs BLOOD COUNT & DIFF WBC 9.7 k/mm3 ()?? 01/20/2025 19:32 RBC 4.04 m/mm3 (Low)?? 01/20/2025 19:32 Hgb 12.2 Gm/dL ()?? 01/20/2025 19:32 Hct 34.3 % (Low)?? 01/20/2025 19:32 MCV 84.9 femtoliters ()?? 01/20/2025 19:32 MCH 30.2 pg ()?? 01/20/2025 19:32 MCHC 35.6 Gm/dL ()?? 01/20/2025 19:32 Platelet Count 208 k/mm3 ()?? 01/20/2025 19:32 RDW-SD 44.3 femtoliters ()?? 01/20/2025 19:32 MPV 9.2 femtoliters (Low)?? 01/20/2025 19:32 Nucleated RBC (Automated) 0.0 #/100 WBC'S ()?? 01/20/2025 19:32 Abs. NRBC 0.0 k/mm3 ()?? 01/20/2025 19:32 Abs. Neut 5.7 k/mm3 ()?? 01/20/2025 19:32 Abs. Lymph 3.2 k/mm3 (High)?? 01/20/2025 19:32 Abs. [place] 0.6 k/mm3 ()?? 01/20/2025 19:32 Abs. Eo 0.1 k/mm3 ()?? 01/20/2025 19:32 Abs. Baso 0.1 k/mm3 ()?? 01/20/2025 19:32 Neut % 59.0 % ()?? 01/20/2025 19:32 Lymph % 33.2 % ()?? 01/20/2025 19:32 [place] % 6.5 % ()?? 01/20/2025 19:32 Eos % 0.5 % ()?? 01/20/2025 19:32 Baso % 0.5 % ()?? 01/20/2025 19:32 Imm Gran 0.3 % ()?? 01/20/2025 19:32 Abs. Imm Gran 0.0 k/mm3 ()?? 01/20/2025 19:32 ?? CARDIAC High Sensitivity Troponin (HSTnT) <6 ng/L () 01/20/2025 19:32 ?? CHEM GENERAL Sodium 142 mmol/L ()?? 01/20/2025 19:32 Potassium 3.3 mmol/L (Low)?? 01/20/2025 19:32 Chloride 102 mmol/L ()?? 01/20/2025 19:32 Bicarbonate Level 22 mmol/L ()?? 01/20/2025 19:32 Anion Gap 18 mmol/L (High)?? 01/20/2025 19:32 Glucose Level 115 mg/dL (High)?? 01/20/2025 19:32 BUN 8 mg/dL ()?? 01/20/2025 19:32 Creatinine-Blood 0.50 mg/dL ()?? 01/20/2025 19:32 Estimated GFR Creatinine 114 ML/MIN/1.73 M2 ()?? 01/20/2025 19:32 Calcium 7.2 mg/dL (Low)?? 01/20/2025 19:32 Protein, Total 7.1 Gm/dL ()?? 01/20/2025 19:32 Albumin 3.8 Gm/dL ()?? 01/20/2025 19:32 AG Ratio 1.2 ()?? 01/20/2025 19:32 Alkaline Phosphatase 83 units/L ()?? 01/20/2025 19:32 AST (SGOT) 34 units/L (High)?? 01/20/2025 19:32 ALT (SGPT) 15 units/L ()?? 01/20/2025 19:32 Bilirubin, Total 0.3 mg/dL ()?? 01/20/2025 19:32 Lactate 2.4 mmol/L (High)?? 01/20/2025 23:21 ?? ENDOCRINE/TUMOR MARKER TSH 2.45 uIU/mL ()?? 01/20/2025 19:32 ?? URINE OTHER Est Creatinine Clearance 117.08 mL/min ()?? 01/21/2025 01:23 ?? VIROLOGY COVID-19 by RT-PCR NEGATIVE ()?? 01/20/2025 23:31 ?(01/20/2025 20:[address] Abdomen and Pelvis W/O Contrast) IMPRESSION:? No acute abnormality in the abdomen or pelvis. [1] ?? [1]??CT Abdomen and Pelvis W/O Contrast; Med PITTS, Jasper Ayon 01/20/2025 20:08 EST Electronically Signed on 01/21/25 03:04 AM Livier Solis DO S Electronically Signed on 01/21/25 03:07 AM Livier Solis DO S Procedure * Event Display: Cardiac Rhythm Strips Authored Date: * Event Display: Cardiac Rhythm Strips Authored Date: * Event Display: Cardiac Rhythm Strips Authored Date: Hospital Progress note * Yany Hodge RN: PERFORM, MODIFY, SIGN, VERIFY, SIGN, MODIFY Event Display: Progress Note Hospital Authored Date: Patient: ELADIA SCHREIBER Age: 49 years Sex: Female : 1975 Associated Diagnoses: None Author: Yany Hodge RN Findings Problem Related to Alteration in Comfort : Alteration in Comfort/new 01/30/2025 13:00 EST Alteration in Comfort Related to Disease process Goals & Outcomes: Comfort Pt will report acceptable level of comfort & pain control, Pt will state importance of adhering to pain strategy regime, Pt will demonstrate necessary skills to manage pain, Non-verbal indicators will indicate comfort/pain control Interventions Implemented: Comfort Assess pain using appropriate pain scale/tools, Assess aggravating factors & prevent them accordingly, Assess alleviating factors & promote them accordingly BH Goals/Interventions, Comfort Yes Comfort, Problem Start 01/21/2025 1:00 Reviewed plan with, Comfort Patient Patient Progression, Comfort Pt progressing according to plan Comfort, Problem Ongoing Yes . Alteration in Gastrointestinal : Alteration in Gastrointestinal Func/new 01/30/2025 13:00 EST Alteration in GI status Related to C Diff Goals & Outcomes, Gastrointestinal Establish a regular pattern of elimination for pt, Nutritional intake is adequate for metabolic needs, Pt will achieve normal/improved fluid balance, Pt will have a bowel movement prior to discharge, Pt will maintain adequate GI function appropriate for pt, Ptwill maintain normal elimination patterns, Pt will resume/maintain adequate hemodynamic status, Pt will tolerate age appropriate diet prior to discharge, Pt will experience a decrease in diarrhea Interventions, Gastrointestinal Assess/monitor abdomen for distention, tenderness, Assess/monitor abdominal girth & bowel function, Assess/monitor bowel pattern, bowel sounds, flatus, Assess/monitor number of bowel movements, Assess/monitor color, quantity, quality, consistency of stoo, Assess/monitor pt for nausea, vomiting, Assess/monitor effects of re-hydration, Assess/monitor intake &output, Assess if pt tolerating diet, Collaborate/Consult with Dispute Specialist; review recommendations Goals/Interventions, Gastrointestinal Yes Gastrointestinal, Problem Start 01/21/2025 16:32 Reviewed plan with, Gastrointestinal Patient Patient Progression, Gastrointestinal Pt progressing according to plan . Evaluation PT alert oreiented X4. Reports 08/01 pain PRN oxycodone administered per order with positive responce. LS clear on RA. +BS in all quadrants, last BM 01/27. Ambulates independently in the room. IV site WNL. Skin intact. Rash noted on buttocks. PT remain on contact plus percautions. PT in room bed locked in lowest position call [address] awaiting to be discharged.. Electronically Signed on 01/30/25 02:32 PM Yany Hodge RN * Yany Hodge RN: PERFORM Event Display: Progress Note Hospital Authored Date: PT safely discharged off unit with all belongings. IV removed site WNL. All questions asked and answered. Electronically Signed on 01/30/25 04:05 PM Yany Hodge RN * Jerome Cabrales RN: PERFORM, SIGN, VERIFY Event Display: Progress Note Hospital Authored Date: Patient: ELADIA SCHREIBER Age: 49 years Sex: Female : 1975 Associated Diagnoses: None Author: Jerome Cabrales RN Findings Problem Related to Alteration in Comfort : Alteration in Comfort/new 01/28/2025 21:00 EST Alteration in Comfort Related to Disease process Goals & Outcomes: Comfort Pt will report acceptable level of comfort & pain control, Pt will state importance of adhering to pain strategy regime, Pt will demonstrate necessary skills to manage pain, Non-verbal indicators will indicate comfort/pain control Interventions Implemented: Comfort Assess pain using appropriate pain scale/tools, Assess aggravating factors & prevent them accordingly Goals/Interventions, Comfort Yes Comfort, Problem Start 01/21/2025 1:00 Reviewed plan with, Comfort Patient Patient Progression, Comfort Pt progressing according to plan Comfort, Problem Ongoing Yes . Alteration in Gastrointestinal : Alteration in Gastrointestinal Func/new 01/28/2025 13:00 EST Alteration in GI status Related to C Diff Goals & Outcomes, Gastrointestinal Establish a regular pattern of elimination for pt, Nutritional intake is adequate for metabolic needs, Pt will achieve normal/improved fluid balance, Pt will have a bowel movement prior to discharge, Pt will maintain adequate GI function appropriate for pt, Ptwill maintain normal elimination patterns, Pt will resume/maintain adequate hemodynamic status, Pt will tolerate age appropriate diet prior to discharge, Pt will experience a decrease in diarrhea Interventions, Gastrointestinal Assess/monitor abdomen for distention, tenderness, Assess/monitor bowel pattern, bowel sounds, flatus, Assess/monitor number of bowel movements, Assess/monitor color, quantity, quality, consistency of stoo, Assess/monitor pt for nausea, vomiting, Assess if pt tolerating diet, Elevate HOB to facilitate lung expansion, prevent aspiration BH Goals/Interventions, Gastrointestinal Yes Gastrointestinal, Problem Start 01/21/2025 16:32 Reviewed plan with, Gastrointestinal Patient Patient Progression, Gastrointestinal Pt progressing according to plan . Evaluation Pt AO x4. Able to verbalize needs and complains in [place]. VSS. Scheduled meds given and well tolerated. Pt denied nausea and vomiting. Pt tolerating oral fluids. Oxycodone given with positive effect. One time dose of I.V Dilaudid given for pain. Contact plus precautions maintained. Safety and standard precautions maintained. Droplet precautions maintained. Bed in lowest position. Call shaffer witin reach.. Electronically Signed on 01/30/25 08:19 AM Jerome Cabrales RN * Margie Frankel LPN: PERFORM, SIGN, VERIFY Event Display: Progress Note Hospital Authored Date: Patient: ELADIA SCHREIBER Age: 49 years Sex: Female : 1975 Associated Diagnoses: None Author: Margie Frankel LPN Findings Evaluation Monitored for pain and signs of infection. Pt AxO x4. Pt c/o 6/10 pain throughout day. MD López aware. Pain managment team aware. Medicated per MAR. Pt c/o migraine. Pt appears to be anxious, crying, ruminating, stating she feels anxious. Pt appears to be tearful throughout day. Medicated per APR.Pt ambulates independently without difficulty. Pt states she feels consipated, per MD and imaging Pt does not appear constipated, Pt reassured. Pt remains on RA, lung sounds dim at bases. Continent of bowel and bladder. Bowel sounds + x4 quads. Tolerating diet. Contact Plus precautions remain in place. Fall precautions remain in place. Bed in low and locked position for patient safety. Oriented to call shaffer and phone. Both within reach. Plan of care ongoing. . Electronically Signed on 01/29/25 07:06 PM Margie Frankel LPN Note * Yany Hodge RN: PERFORM Event Display: Discharge/Transfer Note Hospital Authored Date: [id number] Nursing Discharge Note Entered On: 01/30/2025 16:08 EST Performed On: 01/30/2025 16:06 EST by Yany Hodge RN Nursing Discharge Note 2 Discharge Level of Care at Discharge : Home/Care Home/Foster Care Discharge Time : 01/30/2025 15:46 EST Bulk Mail Technician Utilized : No Patient Left Unit Via : Ambulatory Patient Accompanied Off Unit with : Responsible adult DC Instructions Provided & Signed by Pt : Yes Patient Understands D/C Instructions : Yes Patient Instructions Discharge Signed : Yes Did Pt have Specialty Bed or Wound Vac : No Yany Hodge RN - 01/30/2025 16:06 EST Electronically Signed on 01/30/25 04:06 PM Yany Hodge RN * Will PITTS, Gabino Ramirez: PERFORM Event Display: Discharge/Transfer Note Hospital Authored Date: [id number] Patient: ??ELADIA SCHREIBER ? Age:??49 Years?Sex:??Female?:??1975?LOC:??[facility]?? 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) Hypertension (I10) Anxiety (F41.9) Chronic pain (G89.29) Dermatitis associated with moisture from stool incontinence (L25.8) Hypokalemia (E87.6) _ Discharge Medications Acetaminophen (acetaminophen 325 mg oral tablet)??975 Milligram 3 tablet By Mouth 3 times a day as needed not to exceed 4000 mg/day Pain , Mild Amlodipine (amLODIPine 5 mg oral tablet)??5 Milligram By Mouth Daily Cholestyramine (cholestyramine 4 g/4.8 g oral powder for reconstitution)??1 pack/packet By Mouth 2 times a day as needed Diarrhea for 10 Days mix 1 scoopful or 1 packet in 2 to 6 oz of water, non-carbonated drink, soup, or pulpy fruit. stir well and drink. Gabapentin (gabapentin 300 mg oral capsule)??900 Milligram 3 capsule By Mouth 3 times a day for 30 Days Ibuprofen (ibuprofen 600 mg oral tablet)??600 Milligram 1 tablet By Mouth Every 6 hours as needed for 14 Days Pain , Moderate Loperamide (loperamide 2 mg oral capsule)??2 Milligram By Mouth Every 3 hours as needed for 7 Days Diarrhea Lorazepam (Ativan 1 mg oral tablet)??1 Milligram By Mouth 2 times a day as needed Anxiety for 3 Days Oxycodone (oxyCODONE 5 mg oral tablet)??See Instructions as needed 10 mg By Mouth Every 8 hours as needed for severe pain Pain , Moderate Polyethylene Glycol 3350 (MiraLax oral powder for reconstitution)??17 gram By Mouth Daily as neededConstipation Senna (senna 187 mg oral tablet)??1 tab(s) 8.6 Milligram By Mouth 2 times a day as needed constipation Sucralfate (sucralfate 1 gm/10 ml oral suspension)??10 Milliliter 1 gram By Mouth 3 times a day before meals and bedtime Vancomycin (vancomycin 125 mg oral capsule)??125 Milligram By Mouth Every 6 hours 2 weeks of 125 mgpo every 6hours until 02/03/25.Then; 1 week of 125 mg po every 8 hours1 week of 125 mg po every 12h1 week of 125 mg po every 24 h 1 week of 125 mg po every 48 h1 week of 125 mg po every 72 hours then stop ? Inpatient Medications Medications (23) Active SCHEDULED: (11) Amlodipine 5 mg Tablet (amLODIPine 5 mg oral tablet) ??5 mg, By Mouth, Daily Folic Acid 1 mg Tablet (Folic Acid Tablet) ??1 mg, By Mouth, Daily Gabapentin 300 mg Capsule (gabapentin 300 mg oral capsule) ??900 mg, By Mouth, 3 times a day Hydrocortisone 25 mg Hemmorhoidal Supp (HydroCORTisone ??Supp) ??25 mg 1 supp, Rectally, 2 times a day Multivitamin Therapeutic / Minerals Tablet (Multivit Therapeutic/Minerals Tablet) ??1 tablet, By Mouth, Daily NaCl 0.9% Flush 3ml (NaCL 0.9% Flush) ??3 mL, IV Push, Every 8 hours Nystatin Powder ??1 application, Topically, 2 times a day Pyridoxine 50 mg Tablet (Pyridoxine Tablet) ??50 mg, By Mouth, Daily Sucralfate 1 Gm /10 mL susp (Carafate Suspension) ??1 Gm 10 mL, By Mouth, 3 times a day before meals and bedtime Thiamine 100 mg Tablet (Thiamine Tablet) ??100 mg, By Mouth, 2 times a day Vancomycin 125 mg Capsule (Vancomycin Capsule) ??125 mg, By Mouth, Every 6 hours CONTINUOUS: (0) PRN: (12) Acetaminophen 325 mg Tablet (Acetaminophen Tablet) ??650 mg, By Mouth, 3 times a day Cetirizine 5 mg Tablet (Cetirizine Tablet) ??10 mg, By Mouth, Once Cholestyramine 4 gm Powder (5.7 gm t.w.) (Cholestyramine Powder) ??4 Gm, By Mouth, 2 times a day Dextromethorphan-Guaifenesin 20 mg-200 mg/10 mL Liqu UD (Robitussin DM Liquid) ??10 mL, By Mouth, Every 4 hours diphenhydrAMINE 25 mg Tablet (Benadryl Tablet) ??25 mg, By Mouth, Every 4 hours Loperamide 2 mg Capsule (loperamide 2 mg oral capsule) ??2 mg, By Mouth, Every 3 hours Lorazepam 1 mg Tablet (Ativan 1 mg oral tablet) ??1 mg, By Mouth, 2 times a day Melatonin 3 mg Tablet (Melatonin Tablet) ??3 mg, By Mouth, Daily at bedtime NaCl 0.9% Flush 3ml (NaCL 0.9% Flush) ??3 mL, IV Push, Every 8 hours Ondansetron 2mg/mL Inj (2mL Vial) (Zofran Inj) ??4 mg, IV Push, Every 6 hours OxyCODONE 5 mg IR Tablet (oxyCODONE 5 mg oral tablet) ??10 mg, By Mouth, Every 4 hours Simethicone 80 mg Chewable Tablet (Simethicone Tablet) ??80 mg, Chew, 3 times a day ? 72 Hour Antibiotic History Active Antibiotics Calendar Day Last Administered First Administered Vancomycin??125 mg, By Mouth, Every 6 hours ? 10 01/30/2025 10:54 01/21/2025 17:59 ? Durable Medical Equipment Discharge recommendations: Home with services (12/24/24) Ambulatory devices needed: None (01/29/25) ? Discharge Medications New Cholestyramine (cholestyramine 4 g/4.8 g oral powder for reconstitution)1 pack/packet Oral twice a day as needed Diarrhea for 10 Days. mix 1 scoopful or 1 packet in 2 to 6 oz of water, non-carbonateddrink, soup, or pulpy fruit. stir well and drink.. Refills: 0. Loperamide (loperamide 2 mg oral capsule)2 Milligram Oral every 3 hours as needed Diarrhea for 7 Days. Refills: 0. Lorazepam (Ativan 1 mg oral tablet)1 Milligram Oral twice a day as needed Anxiety for 3 Days. Refills: 0. Oxycodone (oxyCODONE 5 mg oral tablet)10 mg By Mouth Every 8 hours as needed for severe pain; as needed Pain , Moderate. Refills: 0. Changed Vancomycin (vancomycin 125 mg oral capsule)125 Milligram Oral every 6 hours. 2 weeks of 125 mg po every 6hours until 02/03/25. Then; 1 week of 125 mg po every 8 hours 1 week of 125 mg po every 12h 1 week of 125 mg po every 24 h 1 week of 125 mg po every 48 h 1 week of 125 mg po every 72 hours then stop. Refills: 0. Unchanged Acetaminophen (acetaminophen 325 mg oral tablet)3 tab(s) Oral 3 times a day as needed Pain , Mild. not to exceed 4000 mg/day. Refills: 0. Amlodipine (amLODIPine 5 mg oral tablet)5 Milligram Oral Daily. Refills: 0. Gabapentin (gabapentin 300 mg oral capsule)3 capsule Oral 3 times a day for 30 Days. Refills: 0. Ibuprofen (ibuprofen 600 mg oral tablet)1 tab(s) Oral every 6 hours as needed Pain , Moderate for 14 Days. Refills: 0. Polyethylene Glycol 3350 (MiraLax oral powder for reconstitution)17 gram Oral Daily as needed Constipation. Refills: 0. Senna (senna 187 mg oral tablet)1 tab(s) Oral twice a day as needed constipation. Refills: 0. Sucralfate (sucralfate 1 gm/10 ml oral suspension)10 Milliliter Oral 3 times a day before meals andbedtime. Refills: 0. Discontinued Pantoprazole (pantoprazole 40 mg oral delayed release tablet)40 Milligram Oral twice a day for 30 Days. Refills: 1. Allergies Allergies ?(Active and Proposed Allergies Only) Toradol? (Severity: Unknown severity, Onset: Unknown) ?Reactions: hives ?Comments: tolerates ibuprofen Other Food Allergy? (Severity: Unknown severity, Onset: Unknown) ?Comments: [place] CT Contrast Dye? (Severity: Unknown severity, Onset: Unknown) ?Reactions: HIVES ciprofloxacin? (Severity: Unknown severity, Onset: Unknown) ?Reactions: rash Bee Stings? (Severity: Unknown severity, Onset: Unknown) ?Reactions: hives ? Future Appointments Wednesday2025 3:00 PM EST ?? Type: Return With: Nayan Flores MD Where: [facility] [address], [address] [place] [id number] Status: Pending Wednesday2025 2:00 PM EDT ?? Type: SN - Endoscopy Where: [facility] Status: Pending Hospital Course 49-year-old female with past medical history of recurrent C. difficile admitted for concerns of hematochezia, worsening diarrhea and abdominal pain. Patient admitted to medicine service. C. difficilepositive, started on oral vancomycin s/p infectious disease evaluation who recommended a vancomycintaper. Patient had multiple CT abdomen pelvis with and without contrast along with KUB which did not report any acute abnormalities. S/p gastroenterology evaluation as well. Recommended loperamide and cholestyramine. Pain has been significant issue during this hospitalization requiring APS evaluation. Patient has been on several doses of oxycodone and Dilaudid. Extensive gastrointestinal workup was negative. Concern for pain seeking behavior. Explained to patient, agreeable to wean off IV. She has only received a few doses of oxycodone in the last 24 hours. Her diarrhea has resolved. Has not had any bowel movement. Patient was upset that she did not have any bowel movement. No symptoms of obstruction, abdominal examination much better. Recommended a dose of senna which she can take at home. Patient also reported intermittent headache. CT brain here did not report any acute abnormalities. No neurological sequelae. Headaches improved spontaneously after pain medications (reports improved from a 7 to 2 palpation). Patient also has not had a recent eye checkup and concern for refractoryerror which may be contributing to headaches. There may be a component of lack of sleep, multiple pain medications/rebound, etc. Fioricet was stopped. Patient tolerating oral diet. Stable off of fluids. Patient has been extremely anxious and highly concerning for pain seeking behavior as patient reportedly requested IV and refuses oral. Shared decision making held with the patient, benefit and risk of opiate therapy explained multiple times throughout hospitalization. Agreeable to monitor on opiates. She requested antianxiety medications. I evaluated patient on 01/30, and patient reported feeling better. She did not report any bowel movement and I recommended laxatives, ambulation, etc. Right arm superifical thrombus, clinically asymptomatic, recommended conservative measures.?Buttock rash was seen by wound??RN. ??Patient needs to follow-up with outpatient gastroenterology clinic for fecal management transplant. Plan will be to be on a tapering dose of vancomycin. Plan to discharge. ?? Objective Assessment and Plan Assessment:??Abdominal pain??(R10.9) Anxiety??(F41.9) Chronic pain??(G89.29) Clostridioides difficile carrier??(Z22.1) Dermatitis associated with moisture from stool incontinence??(L25.8) Headache??(R51.9) Hypertension??(I10) Hypokalemia??(E87.6) 1.??Diarrhea??(R19.7) 2.??Hematochezia??(K92.1) 3.??Cellulitis??(L03.90) ?? Measurements?? Height: 163 cm (01/30/25) Weight: 64.6 kg (01/21/25) Dry Weight: 64.6 kg (01/21/25) Body Mass Index: 24.31 kg/m2 (01/21/25) ? Vital Signs?? Temperature: 98.5 DegF (01/30/25 08:00:00) Temperature Route: Oral (01/30/25 08:00:00) Pulse Rate:??100 bpm??High (01/30/25 08:00:00) Respiratory Rate: 18 br/min (01/30/25 11:00:00) Systolic Blood Pressure: 132 mm Hg (01/30/25 10:54:00) Diastolic Blood Pressure: 83 mm Hg (01/30/25 10:54:00) Blood pressure sites: Arm, right (01/30/25 08:00:00) Mean Arterial Pressure: 103 mm Hg (01/30/25 05:01:00) Pulse Pressure: 49 mm Hg (01/30/25 08:00:00) Oxygen Saturation: 96 % (01/30/25 08:00:00) Mode of Delivery (Oxygen): Room air (01/30/25 08:00:00) Early Warning Score: 0 (01/30/25 11:03:48) ? Hemodynamic Measures?? No qualifying data available. ?? Intake/Output? 01/21 12:46 01/30 07:00 01/29 07:00 01/28 07:00 12 07:00 ?? 01/30 11:54 01/30 11:54 01/30 06:59 01/29 06:59 01/28 06:59 Intake ? 8095 ?240 ?600 ?480 ?600 Output ?0 ?0 ?0 ?0 ?0 Net Total ? 8095 ?240 ?600 ?480 ?600 ? Urine Count ? 12 ?0 ?0 ?0 ?3 ? . Physical Exam Constitutional: Alert, in no acute distress.?? Comfortably??sleeping Head EENT: Normocephalic. Extraocular muscles intact. Moist mucous membranes.?? Neck: Supple. No JVD. Respiratory: Clear to auscultation. No wheezing or crackles. No use of accessory muscles. Cardiovascular: S1S2 regular. No murmurs, rubs or gallops. Gastrointestinal: Mild abdominal tenderness, around umbilical Extremities: No lower extremity pitting pedal edema. No cyanosis or clubbing. Neurologic: AAOx3, Speech normal. Moves all extremities; No focal neurological deficits. Skin: No rash Pending Results Add On Lab Order ordered on 01/24/2025 Calprotectin Fecal ordered on 01/27/2025 Hold Lavender Tube (BB) ordered on 01/20/2025 Follow-Up Appointments Added Follow Up ?Time Frame ?Comments Jaguar PITTS, Alex Talley Patient Instructions -??You were admitted for recurrent C. difficile. ??Your abdominal pain is secondary to inflammationof the bowel.?? You were on vancomycin.?For your bilateral buttock rash, he was seen by wound nurse.?? Please continue vancomycin taper as mentioned below ?? -- recommend retreating C.difficile with PO vancomycin and taper -- and follow up in Infectious Disease or GI clinic to discuss fecal microbiota therapy: ?2 weeks of 125 mg po every 6hours until 02/03/25. Then ?1 week of 125 mg po every 8 hours ?1 week of 125 mg po every 12h ?1 week of 125 mg po every 24 h ?1 week of 125 mg po every 48 h ?1 week of 125 mg po every 72 hours then stop ?? -Please ensure you follow-up with gastroenterology team as an outpatient for fecal microbiota therapy discussed ?? -It is very imperative that you follow-up with your primary care physician and??discuss pain management.?? Opiates have multiple risk factors including but not limited to respiratory depression, decreased pain tolerance,??constipation, low hear rate, low blood pressure, dependence, withdrawal sx??etc. Post Discharge Care Activity: ??Ambulate with assistance 3 times a day unless otherwise specified ?? Wound Care: ??Wound Site: buttocks every 12 hours Yes ?? Code Status: ??full ?? Condition: ??stable ?? Home Health Face to Face ^HomeHealthFTF Results Discharge Labs BACTERIOLOGY Blood Culture Results Final report ()?? 01/20/2025 19:32 Blood Culture Specimen Source BLOOD ()?? 01/20/2025 19:32 Blood Culture Isolate 1 Comment ()?? 01/20/2025 19:32 Blood Cult 2 Results Final report ()?? 01/20/2025 21:36 Blood Culture 2 Specimen Source BLOOD ()?? 01/20/2025 21:36 Blood Culture 2 Isolate 1 Comment ()?? 01/20/2025 21:36 C.difficile Toxin INDETERMINATE (Abnormal)?? 01/21/2025 05:20 C. Difficile Toxin by PCR POSITIVE (Abnormal)?? 01/21/2025 05:20 ?? BLOOD COUNT & DIFF WBC 4.2 k/mm3 ()?? 01/28/2025 07:05 RBC 3.51 m/mm3 (Low)?? 01/28/2025 07:05 Hgb 10.7 Gm/dL (Low)?? 01/28/2025 07:05 Hct 32.7 % (Low)?? 01/28/2025 07:05 MCV 93.2 femtoliters ()?? 01/28/2025 07:05 MCH 30.5 pg ()?? 01/28/2025 07:05 MCHC 32.7 Gm/dL (Low)?? 01/28/2025 07:05 Platelet Count 130 k/mm3 (Low)?? 01/28/2025 07:05 RDW-SD 51.7 femtoliters (High)?? 01/28/2025 07:05 MPV 9.4 femtoliters ()?? 01/28/2025 07:05 Nucleated RBC (Automated) 0.0 #/100 WBC'S ()?? 01/28/2025 07:05 Abs. NRBC 0.0 k/mm3 ()?? 01/28/2025 07:05 Abs. Neut 3.1 k/mm3 ()?? 01/24/2025 10:56 Abs. Lymph 1.2 k/mm3 ()?? 01/24/2025 10:56 Abs. [place] 0.3 k/mm3 (Low)?? 01/24/2025 10:56 Abs. Eo 0.1 k/mm3 ()?? 01/24/2025 10:56 Abs. Baso 0.0 k/mm3 ()?? 01/24/2025 10:56 Neut % 65.0 % ()?? 01/24/2025 10:56 Lymph % 25.3 % ()?? 01/24/2025 10:56 [place] % 7.0 % ()?? 01/24/2025 10:56 Eos % 2.1 % ()?? 01/24/2025 10:56 Baso % 0.4 % ()?? 01/24/2025 10:56 Imm Gran 0.2 % ()?? 01/24/2025 10:56 Abs. Imm Gran 0.0 k/mm3 ()?? 01/24/2025 10:56 ?? CARDIAC High Sensitivity Troponin (HSTnT) <6 ng/L () 01/20/2025 19:32 ? CHEM GENERAL Sodium 137 mmol/L ()?? 01/28/2025 07:05 Potassium 4.0 mmol/L ()?? 01/28/2025 07:05 Chloride 99 mmol/L ()?? 01/28/2025 07:05 Bicarbonate Level 25 mmol/L ()?? 01/28/2025 07:05 Anion Gap 13 mmol/L ()?? 01/28/2025 07:05 Glucose Level 108 mg/dL (High)?? 01/28/2025 07:05 Glucose, POC 123 mg/dL (High)?? 01/24/2025 20:31 BUN 11 mg/dL ()?? 01/28/2025 07:05 Creatinine-Blood 0.51 mg/dL ()?? 01/28/2025 07:05 Estimated GFR Creatinine 114 ML/MIN/1.73 M2 ()?? 01/28/2025 07:05 Calcium 9.1 mg/dL ()?? 01/28/2025 07:05 Magnesium 1.2 mg/dL (Low)?? 01/24/2025 00:06 Protein, Total 6.9 Gm/dL ()?? 01/28/2025 07:05 Albumin 3.8 Gm/dL ()?? 01/28/2025 07:05 AG Ratio 1.2 ()?? 01/20/2025 19:32 Alkaline Phosphatase 61 units/L ()?? 01/28/2025 07:05 AST (SGOT) 25 units/L ()?? 01/28/2025 07:05 ALT (SGPT) 15 units/L ()?? 01/28/2025 07:05 Bilirubin, Total 0.2 mg/dL ()?? 01/28/2025 07:05 Lactate 1.5 mmol/L ()?? 01/28/2025 07:05 C-Reactive Protein 0.3 mg/dL ()?? 01/28/2025 07:05 ? ENDOCRINE/TUMOR MARKER TSH 2.45 uIU/mL ()?? 01/20/2025 19:32 ? HEME OTHER Sed Rate 21 mm/hr (High)?? 01/28/2025 07:05 Hold Lavender Top SPECIMEN DISCARDED AFTER 24 HOURS. ()?? 01/24/2025 00:06 ?? MISC. CHEMISTRY Hold Gel Top SPECIMEN DISCARDED AFTER 1 WEEK ()?? 01/21/2025 07:04 ? STOOL STUDIES GI PCR, Campylobacter NEGATIVE ()?? 01/21/2025 05:20 GI PCR, Plesiomonas shigelloides NEGATIVE ()?? 01/21/2025 05:20 GI PCR, Salmonella NEGATIVE ()?? 01/21/2025 05:20 GI PCR, Vibrio NEGATIVE ()?? 01/21/2025 05:20 GI PCR, Vibrio cholerae NEGATIVE ()?? 01/21/2025 05:20 GI PCR, Yersinia enterocolitica NEGATIVE ()?? 01/21/2025 05:20 GI PCR, Enteroaggregative E coli NEGATIVE ()?? 01/21/2025 05:20 GI PCR, Enteropathogenic E coli NEGATIVE ()?? 01/21/2025 05:20 GI PCR, Enterotoxigenic E coli NEGATIVE ()?? 01/21/2025 05:20 GI PCR, Iibby-zbbdh-dvhaqlmrj E coli NEGATIVE ()?? 01/21/2025 05:20 GI PCR, Shigella/Enteroinvasive E coli NEGATIVE ()?? 01/21/2025 05:20 GI PCR, Cryptosporidium NEGATIVE ()?? 01/21/2025 05:20 GI PCR, Cyclospora cayetanensis NEGATIVE ()?? 01/21/2025 05:20 GI PCR, Entamoeba histolytica NEGATIVE ()?? 01/21/2025 05:20 GI PCR, Giardia lamblia NEGATIVE ()?? 01/21/2025 05:20 GI PCR, Adenovirus F 40/41 NEGATIVE ()?? 01/21/2025 05:20 GI PCR, Astrovirus NEGATIVE ()?? 01/21/2025 05:20 GI PCR, Norovirus GI/GII NEGATIVE ()?? 01/21/2025 05:20 GI PCR, Rotavirus A NEGATIVE ()?? 01/21/2025 05:20 GI PCR, Sapovirus NEGATIVE ()?? 01/21/2025 05:20 ?? UA/URINALYSIS Appear/Color, Urine YELLOW ()?? 01/27/2025 15:54 Specific [place], Urine 1.038 (High)?? 01/27/2025 15:54 pH, Urine 6.5 ()?? 01/27/2025 15:54 Albumin, Urine TRACE (Abnormal)?? 01/27/2025 15:54 Glucose, Urine NEGATIVE ()?? 01/27/2025 15:54 Ketones, Urine NEGATIVE ()?? 01/27/2025 15:54 Bilirubin, Urine NEGATIVE ()?? 01/27/2025 15:54 Hemoglobin, Urine NEGATIVE ()?? 01/27/2025 15:54 Nitrite, Urine NEGATIVE ()?? 01/27/2025 15:54 Leukocyte, Urine NEGATIVE ()?? 01/27/2025 15:54 Urobilinogen NORMAL mg/dL ()?? 01/27/2025 15:54 WBC's, Urine NONE SEEN /HPF ()?? 01/27/2025 15:54 RBC's, Urine NONE SEEN /HPF ()?? 01/27/2025 15:54 Bacteria SLIGHT HPF (Abnormal)?? 01/22/2025 05:25 Squamous Epith 3 /HPF ()?? 01/27/2025 15:54 Hyaline Cast 1 LPF ()?? 01/27/2025 15:54 Calcium Oxal SLIGHT /HPF ()?? 01/27/2025 15:54 Mucus SLIGHT /LPF ()?? 01/27/2025 15:54 Hold Urine Culture Testing available 48 hours from time of collection. ()?? 01/27/2025 15:54 ? URINE OTHER Est Creatinine Clearance 114.79 mL/min ()?? 01/28/2025 08:19 ? VIROLOGY COVID-19 by RT-PCR NEGATIVE ()?? 01/20/2025 23:31 ? Microbiology ?? GI Profile, Stool, PCR?? Completed?? Source: Stool Body Site: ?? Collected Dt/Tm: 01/21/2025 05:24 Last Updated Dt/Tm: 01/21/2025 07:37 ?? C.diff PCR, w Rfx Toxin/Ag?? Completed?? Source: Stool Body Site: ?? Collected Dt/Tm: 01/21/2025 05:24 Last Updated Dt/Tm: 01/21/2025 07:06 ?? C. difficile Rapid Toxin Assay?? Completed?? Source: Stool Body Site: ?? Collected Dt/Tm: 01/21/2025 05:20 Last Updated Dt/Tm: 01/21/2025 09:50 ?? COVID-19 (Novel Coronavirus), Rapid PCR?? Completed?? Source: Nasal Body Site: Nasopharyngeal Collected Dt/Tm: 01/20/2025 23:04 Last Updated Dt/Tm: 01/21/2025 00:45 ?? Blood Culture 2 Results?? Completed?? Source: Blood Body Site: ?? Collected Dt/Tm: 01/20/2025 21:36 Last Updated Dt/Tm: 01/22/2025 09:07 ?? Blood Culture?? Completed?? Source: Blood Body Site: ?? Collected Dt/Tm: 01/20/2025 19:32 Last Updated Dt/Tm: 01/21/2025 07:11 ?? Blood Culture #2?? Completed?? Source: Blood Body Site: ?? Collected Dt/Tm: 01/20/2025 19:32 Last Updated Dt/Tm: 01/22/2025 09:07 ?? Blood Culture Result?? Completed?? Source: Blood Body Site: ?? Collected Dt/Tm: 01/20/2025 19:32 Last Updated Dt/Tm: 01/21/2025 07:12 ? Image ?CT Abdomen and Pelvis W/O Contrast??01/20/2025 20:08 by Enid Izaguirre ?IMPRESSION: No acute abnormality in the abdomen or pelvis. ?CT Abdomen and Pelvis W/O Contrast??01/24/2025 12:07 by Sierra Lanier ?IMPRESSION: 1. No acute abnormality in the abdomen or pelvis. 2. Diverticulosis without acute diverticulosis. ?US Doppler Ext Upper Venous Right??01/29/2025 17:05 by Piotr Munoz ?IMPRESSION: Superficial thrombus noted in the cephalic vein below the elbow. ?CT Abd/Pelvis W/ IV Contrast Only??01/28/2025 08:18 by Karlee Mukherjee ? IMPRESSION: No acute intra-abdominal abnormality. ?CT Head/Brain W/O Contrast??01/28/2025 08:07 by Karlee Mukherjee ?IMPRESSION: No acute intracranial pathology. ?XR Abdomen AP??01/27/2025 17:01 by Aby Chavez ?IMPRESSION: 1. Nonobstructive bowel gas pattern. 2. Colon does not appear thickened or abnormally distended. ?? 40??minutes spent on discharge Electronically Signed on 01/30/25 11:56 AM Will PITTS, Gabino Ramirez * Ayesha GONZALEZ, Yany: PERFORM Event Display: Patient Education/Instruction Authored Date: [id number] Inpatient Adult Discharge Instructions. [place] [id number] Name: ELADIA SCHREIBER : 1975?? Visit: 01/21/2025 12:46?? Current Date: 01/30/2025 15:16 ?? Account: [id number]?? Inpatient Adult Discharge Instructions We would like to thank you for allowing us to assist you with your healthcare needs. The following includes patient education materials and information regarding your injury/illness. Our entire staffstrives to provide an excellent experience for our patients and their families. PLEASE ENSURE YOU FOLLOW-UP PER THE INSTRUCTIONS BELOW! ?? YOUR OPINION IS IMPORTANT TO US! Please complete the survey you may receive by mail or email. Your feedback will be used to make improvements to the healthcare experiences of our patients and their families. Surveys are administered by [employer] ?? If further treatment with your primary care physician or another doctor is recommended, it is important for you to keep the appointment. Call your primary care physician or return to the Emergency Department immediately if your condition worsens, fails to improve, or new symptoms develop. If you need to find a doctor, you can call [facility] Link for a referral at [phone] or toll free at [phone] or log in to [email or web address].. ?? [facility], in keeping with [facility] guidance, no longer requires face masks for staff, patientsor visitors in most situations. Similiar to time spent indoors at other locations, there is the chance that you were exposed to repiratory viruses during your time with us (such as flu or COVID-19). If you develop symptoms concerning for a viral respiratory infection, please seek testing (and treatment if indicated) from your medical provider or home test kit. ?? You can view and manage your care through the patient portal or by using a health care roberta of your choosing. [employer] is a website that allows you to securely view your medical information including your hospital discharge summary, office visit summaries, medications and follow-up visits. You can also request appointments, renew medications, and request access to your medical information using a health care roberta of your choosing, or just ask a question. You are entitled to know the individuals who participated in your treatment. This information is available within your medical record and will be provided upon your request. You can enroll at [email or web address] or register d uring your next office visit. You have been discharged from [facility], Patient Care Unit: S1??. If you have any questions regarding these instructions, including results of studies pending, afteryou leave, please call us and we will be happy to assist you 14/09. [facility] Your Care Team Attending Physician Gabino Solis MD?? Consulting Providers Gabino Solis MD?? Discharging Providers Gabino Solis MD Reason for Your Visit Coming in with 3 days of diarrhea and ap above umbilicus. Hx C.Diffe. Also has been vomiting and has been having BRB in stool-scant amount noted when wiping?? Your Diagnosis Diarrhea Hematochezia Cellulitis Abdominal pain Anxiety Chronic pain Clostridioides difficile carrier Dermatitis associated with moisture from stool incontinence Headache Hypertension Hypokalemia Tests Performed Below is a partial list of the tests performed during your hospitalization. You may have had other tests and procedures not included in this list. Please discuss all test results with your provider. Albumin Level Alk Phos ALT AST Basic Metabolic Panel Bilirubin Total Blood Culture Blood Culture #2 Blood Culture 2 Results Blood Culture Result BUN C. DIFFICILE TOXIN C.diff PCR, w Rfx Toxin/Ag Calcium Level CBC CBC w/ Differential Comprehensive Metabolic Panel COVID-19 (Novel Coronavirus), Rapid PCR Creatinine CRP Electrolytes ESR GI Profile, Stool, PCR Glucose Level GLUCOSE POC High??Sensitivity??Troponin T HOLD GEL TUBE HOLD LAVENDER TUBE Lactate Level MAGNESIUM Total Protein TSH with T4 Reflex (Adults Only) UA with hold for urine culture Urinalysis w/hold for Urine Culture CT Abd/Pelvis W/ IV Contrast Only CT Abdomen and Pelvis W/O Contrast CT Head/Brain W/O Contrast US Doppler Ext Upper Venous Right XR KUB or Abdomen ALT?? AST?? Add On Lab Order (Lab Add On Order)?? Albumin Level?? Alk Phos?? BUN?? Basic Metabolic Panel?? Bilirubin Total?? Blood Culture?? Blood Culture #2?? Blood Culture 2 Results?? Blood Culture Result?? C Reactive Protein (CRP)?? C. difficile Rapid Toxin Assay (C. DIFFICILE TOXIN)?? C.diff PCR, w Rfx Toxin/Ag?? CBC?? CBC w/ Differential?? COVID-19 (Novel Coronavirus), Rapid PCR?? CT Abd/Pelvis W/ IV Contrast Only?? CT Abdomen and Pelvis W/O Contrast?? CT Head/Brain W/O Contrast?? Calcium Level?? Calprotectin Fecal?? Comprehensive Metabolic Panel?? Creatinine?? Electrolytes?? GI Profile, Stool, PCR?? Glucose Level?? Glucose POC?? High??Sensitivity??Troponin T?? Hold Gel Top Tube (HOLD GEL TUBE)?? Hold Lavender Top Tube (HOLD LAVENDER TUBE)?? Hold Lavender Tube (BB)?? Lactic Acid Level (Lactate Level)?? Magnesium Level (MAGNESIUM)?? Sedimentation Rate (ESR)?? TSH with T4 Reflex (Adults Only)?? Total Protein?? US Doppler Ext Upper Venous Right?? Urinalysis w/hold for Urine Culture (UA with hold for urine culture)?? XR Abdomen AP (XR KUB or Abdomen)?? Primary Care Provider Alex Montesinos MD? Advance Directive Health Care Proxy on File Yes - Health Care Proxy Discharge Vitals Temperature: 98.7 DegF Height: 163 cm Pulse Rate:??94 bpm??High Weight: 64.6 kg Respiratory Rate: 18 br/min Body Mass Index: 24.31 kg/m2 Systolic Blood Pressure: 121 mm Hg Body surface area: 1.71 Diastolic Blood Pressure: 71 mm Hg ?? Oxygen Saturation: 98 % ?? Studies Pending All studies ordered during this hospital stay have been completed unless listed below. Please discuss all pending results with your provider listed above in these instructions. ?? Add On Lab Order (Lab Add On Order)?? Calprotectin Fecal?? Hold Lavender Tube (BB)?? 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 ??Your abdominal pain is secondary to inflammationof the bowel.?? You were on vancomycin.?For your bilateral buttock rash, he was seen by wound nurse.?? Please continue vancomycin taper as mentioned below ?? -- recommend retreating C.difficile with PO vancomycin and taper -- and follow up in Infectious Disease or GI clinic to discuss fecal microbiota therapy: ?2 weeks of 125 mg po every 6hours until 02/03/25. Then ?1 week of 125 mg po every 8 hours ?1 week of 125 mg po every 12h ?1 week of 125 mg po every 24 h ?1 week of 125 mg po every 48 h ?1 week of 125 mg po every 72 hours then stop ?? -Please ensure you follow-up with gastroenterology team as an outpatient for fecal microbiota therapy discussed ?? -It is very imperative that you follow-up with your primary care physician and??discuss pain management.?? Opiates have multiple risk factors including but not limited to respiratory depression, decreased pain tolerance,??constipation, low hear rate, low blood pressure, dependence, withdrawal sx??etc. ?? Orders??:Ambulate with assistance ??3 times a day ??unless otherwise specified Care:Wound Site: buttocks ??every 12 hours ??Yes Status:full :stable? 01/30/25 11:56:00 EST?? Scheduled Follow-Up Appointments Wednesday2025 3:00 PM EST ?? Type: Return With: Nayan Flores MD Where: [facility] [address] [facility] 3rd Floor, [address] [place] [id number]- Status: Pending Wednesday2025 2:00 PM EDT ?? Type: SN - Endoscopy Where: [facility] Status: Pending You Need to Schedule the Following Appointments Follow Up with??Jaguar PITTS, Alex Talley ?? Where: Discharge Medications ELADIA SCHREIBER :1975 Visit Date:01/21/2025 Medications: Please continue your medications until treatment is completed or stopped by your provider. Medications not listed below should be discontinued. Discuss any questions related to medications with your provider. What How Much When Instructions Next Dose New Cholestyramine (cholestyramine 4 g/ 4.8 g oral powderfor reconstitution) 1 pack/packet Oral Twice a day as needed for Diarrhea Duration: 10 Days Special Instructions: mix 1 scoopful or 1 packet in 2 to 6 oz of water, non- carbonated drink, soup,or pulpy fruit. stir well and drink. Ordering Physician: Gabino Solis MD ?? Pickup at [place] [address] As directed New Loperamide (loperamide 2 mg oral capsule) 2 Milligram Oral Every 3 hours as needed for Diarrhea Duration: 7 Days Ordering Physician: Gabino Solis MD Pickup at [place] [address] As directed New Lorazepam (Ativan 1 mg oral tablet) 1 Milligram Oral Twice a day as needed for Anxiety Duration: 3 Days Ordering Physician: Gabino Solis MDup at [place] [address] As directed New Oxycodone (oxyCODONE 5 mg oral tablet) See instructions Special Instructions: 10 mg By Mouth Every 8 hours as needed for severe pain, As needed for Pain , Moderate Ordering Physician: Gabino Solis MD ?? Pickup at [place] [address] As directed Changed Vancomycin (vancomycin 125 mg oral capsule) 125 Milligram Oral Every 6 hours Special Instructions: 2 weeks of 125 mg po every 6hours until . ?? Then; 1 week of 125 mg po every 8 hours ?? 1 week of 125 mg po every 12h ?? 1 week of 125 mg po every 24 h ?? 1 week of 125 mg po every 48 h ?? 1 week of 125 mg po every 72 hours then stop Ordering Physician: Gabino Solis MD ?? Pickup at [facility] 3 10 pm tonight, 01/30/25 Unchanged Acetaminophen (acetaminophen 325 mg oral tablet) 3 tab(s) Oral 3 times a day as needed for Pain , Mild Special Instructions: not to exceed 4000 mg/ day Ordering Physician: Kim Velásquez MD ?? As directed Unchanged Amlodipine (amLODIPine 5 mg oral tablet) 5 Milligram Oral Daily Ordering Physician: Abbey Johnson MD 9 am tomorrow, 01/30 Unchanged Gabapentin (gabapentin 300 mg oral capsule) 3 capsule Oral 3 times a day Duration: 30 Days Ordering Physician: Kim Velásquez MD 9 pm tonight, 01/30 Unchanged Ibuprofen (ibuprofen 600 mg oral tablet) 1 tab(s) Oral Every 6 hours as needed for Pain , Moderate Duration: 14 Days Ordering Physician: Kim Velásquez MD As directed Unchanged Polyethylene Glycol 3350 (MiraLax oral powder for reconstitution) 17 gram Oral Daily as needed for Constipation Ordering Physician: Kim Velásquez MD As directed Unchanged Senna (senna 187 mg oral tablet) 1 tab(s) Oral Twice a day as needed for constipation Ordering Physician: Kim Velásquez MD As directed Unchanged Sucralfate (sucralfate 1 gm/ 10 ml oral suspension) 10 Milliliter Oral 3 times a day before meals and bedtime Ordering Physician: Shravan Arce MD As directed Pharmacy Information [facility] 3: [address], [place] [id number] [phone] ?? What How Much When Comments Stop Taking Pantoprazole (pantoprazole 40 mg oral delayed release tablet) 40 Milligram Oral Twice a day Duration: 30 Days Ordering Physician: Gabino Solis MD Prescription Given During Visit Cholestyramine (cholestyramine 4 g/4.8 g oral powder for reconstitution) - 1 pack/packet, By Mouth,2 times a day, # 201.6 Gm, 0 Refills, mix 1 scoopful or 1 packet in 2 to 6 oz of water, non-carbonated drink, soup, or pulpy fruit. stir well and drink., [place] [address] [phone]?? Loperamide (loperamide 2 mg oral capsule) - 2 mg, By Mouth, Every 3 hours, # 30 capsule, 0 Refills,[place] [phone]?? Lorazepam (Ativan 1 mg oral tablet) - 1 mg, By Mouth, 2 times a day, # 7 tablet, 0 Refills, [place] [phone]?? Oxycodone (oxyCODONE 5 mg oral tablet) - , # 12 tablet, 0 Refills, 10 mg By Mouth Every 8 hours as needed for severe pain, [place] [phone]?? Vancomycin (vancomycin 125 mg oral capsule) - 125 mg, By Mouth, Every 6 hours, # 68 tablet, 0 Refills, 2 weeks of 125 mg po every 6hours until 02/03/25.Then; 1 week of 125 mg po every 8 hours1 week of 125 mg po every 12h 1 week of 125 mg po every 24 h 1 week of 125 mg po every 48 h1 week of 125 mg po every 72 hours then stop, [place] [phone]?? Laboratory Results Below is a partial list of the most recent Laboratory test results done prior to this discharge. You may have had other tests and procedures not included in this list. Please discuss all test resultswith your provider. Est Creatinine Clearance - 114.79 mL/min (01/28/2025) Albumin Level (01/28/2025) ???Albumin - 3.8 Gm/dL Alk Phos (01/28/2025) ???Alkaline Phosphatase - 61 units/L ALT (01/28/2025) ???ALT (SGPT) - 15 units/L AST (01/28/2025) ???AST (SGOT) - 25 units/L Basic Metabolic Panel (01/24/2025) ???Sodium - 133 mmol/L???Potassium - 3.5 mmol/L???Chloride - 97 mmol/L???Bicarbonate Level - 26 mmol/L???Anion Gap - 10 mmol/L???Glucose Level - 126 mg/dL???BUN - 7 mg/dL???Creatinine-Blood - 0.41 mg/dL???Estimated GFR Creatinine - 120 ML/MIN/1.73 M2???Calcium - 8.2 mg/dL Bilirubin Total (01/28/2025) ???Bilirubin, Total - 0.2 mg/dL Blood Culture (01/20/2025) ???Blood Culture Results - Final report???Blood Culture Specimen Source - BLOOD Blood Culture #2 (01/20/2025) ???Blood Cult 2 Results - Final report???Blood Culture 2 Specimen Source - BLOOD Blood Culture 2 Results (01/20/2025) ???Blood Culture 2 Isolate 1 - Comment Blood Culture Result (01/20/2025) ???Blood Culture Isolate 1 - Comment BUN (01/28/2025) ???BUN - 11 mg/dL C. DIFFICILE TOXIN (01/21/2025) ???C.difficile Toxin - INDETERMINATE C.diff PCR, w Rfx Toxin/Ag (01/21/2025) ???C. Difficile Toxin by PCR - POSITIVE Calcium Level (01/28/2025) ???Calcium - 9.1 mg/dL CBC (01/28/2025) ???WBC - 4.2 k/mm3???RBC - 3.51 m/mm3???Hgb - 10.7 Gm/dL???Hct - 32.7 %???MCV - 93.2 femtoliters???MCH - 30.5 pg???MCHC - 32.7 Gm/dL???Platelet Count - 130 k/mm3???RDW-SD - 51.7 femtoliters???MPV - 9.4 femtoliters???Nucleated RBC (Automated) - 0.0 #/100 WBC'S???Abs. NRBC - 0.0 k/mm3 CBC w/ Differential (01/24/2025) ???WBC - 4.7 k/mm3???RBC - 3.61 m/mm3???Hgb - 11.1 Gm/dL???Hct - 33.1 %???MCV - 91.7 femtoliters???MCH - 30.7 pg???MCHC - 33.5 Gm/dL???Platelet Count - 153 k/mm3???RDW-SD - 47.8 femtoliters???MPV - 9.9 femtoliters???Nucleated RBC (Automated) - 0.0 #/100 WBC'S???Abs. NRBC - 0.0 k/mm3???Abs. Neut - 3.1 k/mm3???Abs. Lymph - 1.2 k/mm3???Abs. [place] - 0.3 k/mm3???Abs. Eo - 0.1 k/mm3???Abs. Baso - 0.0 k/mm3???Neut % - 65.0 %???Lymph % - 25.3 %???[place] % - 7.0 %???Eos % - 2.1 %???Baso % - 0.4 %???Imm Gran - 0.2 %???Abs. Imm Gran - 0.0 k/mm3 Comprehensive Metabolic Panel (01/20/2025) ???Sodium - 142 mmol/L???Potassium - 3.3 mmol/L???Chloride - 102 mmol/L???Bicarbonate Level - 22 mmol/L???Anion Gap - 18 mmol/L???Glucose Level - 115 mg/dL???BUN - 8 mg/dL???Creatinine-Blood - 0.50 mg/dL???Estimated GFR Creatinine - 114 ML/MIN/1.73 M2???Calcium - 7.2 mg/dL???Protein, Total - 7.1 Gm/ dL???Albumin - 3.8 Gm/dL???AG Ratio - 1.2???Alkaline Phosphatase - 83 units/L???AST (SGOT) - 34 units/L???ALT (SGPT) - 15 units/L???Bilirubin, Total - 0.3 mg/dL COVID-19 (Novel Coronavirus), Rapid PCR (01/20/2025) ???COVID-19 by RT-PCR - NEGATIVE Creatinine (01/28/2025) ???Creatinine-Blood - 0.51 mg/dL???Estimated GFR Creatinine - 114 ML/MIN/1.73 M2 CRP (01/28/2025) ???C-Reactive Protein - 0.3 mg/dL Electrolytes (01/28/2025) ???Sodium - 137 mmol/L???Potassium - 4.0 mmol/L???Chloride - 99 mmol/L???Bicarbonate Level - 25 mmol/L???Anion Gap - 13 mmol/L ESR (01/28/2025) ???Sed Rate - 21 mm/hr GI Profile, Stool, PCR (01/21/2025) ???GI PCR, Campylobacter - NEGATIVE???GI PCR, Plesiomonas shigelloides - NEGATIVE???GI PCR, Salmonella - NEGATIVE???GI PCR, Vibrio - NEGATIVE???GI PCR, Vibrio cholerae - NEGATIVE???GI PCR, Yersinia enterocolitica - NEGATIVE???GI PCR, Enteroaggregative E coli - NEGATIVE???GI PCR, Enteropathogenic E coli - NEGATIVE???GI PCR, Enterotoxigenic E coli - NEGATIVE???GI PCR, Mpegz-lfjmx-ytxcchkyy E coli -NEGATIVE???GI PCR, Shigella/Enteroinvasive E coli - NEGATIVE???GI PCR, Cryptosporidium - NEGATIVE???GI PCR, Cyclospora cayetanensis - NEGATIVE???GI PCR, Entamoeba histolytica - NEGATIVE???GI PCR, Giardia lamblia - NEGATIVE???GI PCR, Adenovirus F 40/41 - NEGATIVE???GI PCR, Astrovirus - NEGATIVE???GIPCR, Norovirus GI/GII - NEGATIVE???GI PCR, Rotavirus A - NEGATIVE???GI PCR, Sapovirus - NEGATIVE Glucose Level (01/28/2025) ???Glucose Level - 108 mg/dL GLUCOSE POC (01/24/2025) ???Glucose, POC - 123 mg/dL High??Sensitivity??Troponin T (01/20/2025) High Sensitivity Troponin (HSTnT) - <6 ng/L HOLD GEL TUBE (01/21/2025) ???Hold Gel Top - SPECIMEN DISCARDED AFTER 1 WEEK HOLD LAVENDER TUBE (01/24/2025) ???Hold Lavender Top - SPECIMEN DISCARDED AFTER 24 HOURS. Lactate Level (01/28/2025) ???Lactate - 1.5 mmol/L MAGNESIUM (01/24/2025) ???Magnesium - 1.2 mg/dL Total Protein (01/28/2025) ???Protein, Total - 6.9 Gm/dL TSH with T4 Reflex (Adults Only) (01/20/2025) ???TSH - 2.45 uIU/mL UA with hold for urine culture (01/27/2025) ???Appear/Color, Urine - YELLOW???Specific [place], Urine - 1.038???pH, Urine - 6.5???Albumin, Urine - TRACE???Glucose, Urine - NEGATIVE???Ketones, Urine - NEGATIVE???Bilirubin, Urine - NEGATIVE???Hemoglobin, Urine - NEGATIVE???Nitrite, Urine - NEGATIVE???Leukocyte, Urine - NEGATIVE???Urobilinogen - NORMAL???WBC's, Urine - NONE SEEN???RBC's, Urine - NONE SEEN???Squamous Epith - 3 /HPF???Hyaline Cast - 1 LPF???Calcium Oxal - SLIGHT???Mucus - SLIGHT???Hold Urine Culture - Testing available 48 hours from time of collection. Urinalysis w/hold for Urine Culture (01/22/2025) ???Appear/Color, Urine - COLORLESS???Specific [place], Urine - 1.010???pH, Urine - 6.5???Albumin, Urine - NEGATIVE???Glucose, Urine - NEGATIVE???Ketones, Urine - NEGATIVE???Bilirubin, Urine - NEGATIVE???Hemoglobin, Urine - NEGATIVE???Nitrite, Urine - NEGATIVE???Leukocyte, Urine - NEGATIVE???Urobilin ogen - NORMAL???WBC's, Urine - 1 /HPF???RBC's, Urine - 1 /HPF???Bacteria - SLIGHT???Squamous Epith - <1 /HPF Hold Urine Culture - Testing available 48 hours from time of collection. Allergies (NKA means No Known Allergies) Bee Stings??hives CT Contrast Dye??HIVES Other Food Allergy Toradol??hives ciprofloxacin??rash Problems Active Problems??(12) Alcohol dependence?? Anemia?? Anxiety?? Clostridium difficile colitis?? Gastric ulcer?? GERD (gastroesophageal reflux disease)?? H/O colectomy?? Hepatic steatosis?? History of colon cancer in adulthood?? History of GI bleed?? HTN (hypertension)?? Neuropathy?? Education Materials Below is the list of Educational Leaflet Providered with your Discharge Instructions. Web[employer] Patient Education - Discharge Instructions for Cellulitis?? [employer] Patient Education - Cellulitis?? Valuables and Belongings I fully understand and agree that [facility] accepts no responsibility for all my personal property including clothing, toilet articles, radios, jewelry, dentures, hearing aids, rings, money, or any other property that is in my possession or is brought to me after admission. I understand certain valuables may be placed in a hospital safe for a short period of time. I understand that the hospital is not liable for loss or damage due to accident, fire, or other natural occurrence while said property is in the safe. I accept full responsibility for any personal property that I keep with me, and will not hold the hospital responsible in case of loss or disappearance. I acknowledge that i have been encouraged to send valuables and belongings home. ?? Review of Valuable and Belonging List: With patient Date for Pt to Sign Valuables/Belongings: 01/21/25 05:19:00 ?? Other Discharge Information ? Pulmonary Rehab Status?? Pulmonary Rehab Discharge Status?? Respiratory Rate: 18 br/min ? Common Emergency Awareness Tips IS IT A STROKE? Act FAST and Check for these signs: FACE Does the face look uneven? ARM Does one arm drift down? SPEECH Does their speech sound strange? TIME Call at any sign of stroke ?? Heart Attack Signs Chest discomfort: Most heart attacks involve discomfort in the center of the chest and lasts more than a few minutes, or goes away and comes back. It can feel like uncomfortable pressure, squeezing, fullness or pain. Discomfort in upper body: Symptoms can include pain or discomfort in one or both arms, back, neck, jaw or stomach. Shortness of breath: With or without discomfort. Other signs: Breaking out in a cold sweat, nausea, or lightheaded. Remember, MINUTES DO MATTER. If you experience any of these heart attack warning signs, call to get immediate medical attention! ?? Smoking can increase your chances of developing chronic health problems and can cause harmful effects to other family members in your house. If you smoke, you are strongly encouraged to quit. Please call [facility] at [phone] or [phone] ([phone]) or log in to [email or web address] for referrals to smoking cessation programs. ?? 211 Suicide & Crisis Lifeline is available 14/09 if you or someone you know needs to find a reason to keep living. By calling 072 you'll be connected to a skilled, trained counselor at a crisis center in your area. INPATIENT DISCHARGE INSTRUCTIONS SIGNATURE GLORIA ELADIA SCHREIBER Location:[facility] Registration Date and Time:01/21/2025 12:46 EST Primary Care Physician: Jaguar PITTS, Alex Talley, Attending Physician: Will PITTS, Gabino Ramirez, I ABDOUL ELADIA, have received the above patient education materials/instructions and have verbalized understanding. If ambulance or transport services are being used I further acknowledge being given a choice of service. ?? If you need to contact me, please call me at this number: . Patient/Cell Tender Helper Name: Patient/Cell Tender Helper Signature: Relationship to Patient: Witness Name/Signature: Date: * Yany Hodge RN: PERFORM Event Display: Patient Education Leaflets Authored Date: Discharge Instructions for Cellulitis ?? [id number] Discharge Instructions for Cellulitis You have been diagnosed with cellulitis. This is a bacterial infection in the deepest layers of theskin. The bacteria can??enter the body through broken skin. This can happen with a cut, scratch, animal bite, or an insect bite that has been scratched. You may have been treated in the hospital withantibiotics and fluids. You will likely be given a prescription for antibiotics to take at home. You can follow a few tips to care for yourself at home. Home care When you are home: ??? Take the prescribed antibiotic medicine you are given as directed until it is gone. Take it even if you feel better. It treats the infection and stops it from returning. Not taking all the medicine may cause the infection to not completely clear or make future infections harder to treat. ??? Keep the infected area clean. Follow all wound care instructions from your health care provider. ??? When possible, raise the infected area above the level of your heart. This helps keep swelling down. ??? Gunner the boundary of the infected area so you can tell if it is growing. ??? Talk with your provider if you are in pain. Ask what kind of qmhp-qnq-tqibcxk medicine you can take for pain. ??? Applyclean bandages as advised. Throw away dirty bandages in a plastic bag that is tied at the top. ??? Wash your hands often to prevent spreading the infection. Always wash your hands before and after cleaning the area. If anyone helps you with your care, have them do the same. ??? Take your temperature once a day for a week. In the future, wash your hands before and after you touch cuts, scratches, or bandages. This will help prevent infection.? When to call your health care provider Contact your health care provider or seek medical care right away if you have: ??? An infection that does not get better within 1 to 2 days after treatment starts. ??? Trouble or pain when moving thejoints above or below the infected area. ??? Discharge or pus draining from the area. ??? A fever??of??100.4??F (38??C) or higher, or as directed by your provider. ??? Pain that gets worse in or around the infected??area. ??? Redness that gets worse in or around the infected area,??especially if the area of redness expands to a wider area. ??? Shaking chills. ??? Swelling of the infected area. ??? Vomiting. ?? Last Reviewed Date: 2024 00:00:00 ?? [id number] [employer]. All rights reserved. This information is not intended as a substitute for professional medical care. Always follow your healthcare professional's instructions. ?? * Yany Hodge RN: PERFORM Event Display: Patient Education Leaflets Authored Date: [id number] Cellulitis ?? [id number] Cellulitis Cellulitis is an infection of the deep layers of skin. A break in the skin, such as a cut or scratch, can let bacteria under the skin. Cellulitis causes the affected skin to become red, swollen, warm, and sore. The reddened areas havea border you can see. An open sore may leak fluid (pus). You may have a fever, chills, and pain. Cellulitis is treated with antibiotics taken for 7 to 10 days. An open sore may be cleaned and covered with cool wet gauze. Symptoms should get better 1 to 2 days after treatment is started. Make sure to take all the antibiotics for the full number of days prescribed by your health care provider. Keep taking the medicine even if your symptoms go away. If not treated, cellulitis can get into the bloodstream and lymph nodes. The infection can then spread throughout the body. This can cause serious illnesses, such as osteomyelitis (infection of the bone), endocarditis (inflammation of the inner lining of the heart and heart valves), and sepsis, a life-threatening complication of an infection. Home care Follow these tips: ??? Limit the use of the part of your body with cellulitis. ??? If the infectionis on your leg, keep your leg raised while sitting. This helps reduce swelling. ??? Take all of theantibiotic medicine exactly as directed until it is gone. Don't miss any doses. This may make the bacteria resistant to the prescribed antibiotics. Your infection will then be hard to treat. Finish taking all of the medicine even when your symptoms get better. ??? Keep the affected area clean and dry. ??? Wash your hands for 20 seconds with soap and clean, running water before and after touching your skin. Lather the back of your hands, wash between your fingers, and clean under your fingernails. Anyone else who touches your skin should also wash their hands. Don't share towels or other personal items, such as clothes, that may come in contact with the affected area. ?? Follow-up care Follow up with your health care provider, or as advised. If your infection doesn't go away after finishing the first antibiotic, your provider will prescribe a different one. If your provider sent a sample of pus or discharge from the affected site to the lab, they may change the antibiotics. This depends on the lab reports. ?? When to call your doctor Contact your health care provider right away if: ??? You have red areas that spread. ??? Your swelling or pain gets worse. ??? Fluid (pus) is leaking from the skin. ??? You have a fever of 100.4?? F (38?? C) or higher after 2 days on antibiotics. ??? You have no improvement after 24 to 48 hours. ?? Last Reviewed Date: 2024 00:00:00 ?? [id number] [employer]. All rights reserved. This information is not intended as a substitute for professional medical care. Always follow your healthcare professional's instructions. ?? * Eric GONZALEZ, Hansa: PERFORM Event Display: Discharge/Transfer Note Hospital Authored Date: [id number] Discharge Planning Nursing Entered On: 01/23/2025 14:38 EST Performed On: 01/23/2025 9:00 EST by Hansa Reyes RN Discharge Planning Nursing Anticipated discharge : Home Hansa Reyes RN - 01/23/2025 14:26 EST Indicator(s) for VNA/Home Care Services Able to safely function at home Able to safely ambulate at home : Yes Able to safely function at home : Yes Able to obtain meds: fill prescriptions : Yes Understands home medications : Yes Has food available at home : Yes Able to prepare/obtain meals : Yes Able to arrange transportation home : Yes Able to gain entry into home : Yes Exhibits impaired orientation : Yes Exhibits impaired comprehension : Yes Exhibits impaired judgement : Yes Caregiver willing to support patient : Yes Caregiver available to support patient : Yes Caregiver capable to support patient : Yes Hansa Reyes RN - 01/23/2025 14:26 EST Electronically Signed on 01/23/25 02:26 PM Hansa Reyes RN Patient Care team information Care Team Personnel Name: Hilario Baker RN Position: [facility] RN Member Role: Primary Care Nurse Name: Marisol Valderrama RN Position: [facility] RN Member Role: Primary Care Nurse Name: Mable Valverde RN Position: [facility] RN Member Role: Primary Care Nurse Name: Eric Goldberg RN Position: [facility] RN Member Role: Primary Care Nurse Name: Анна Jordan RN Position: [facility] RN Member Role: Primary Care Nurse Name: Yany Hodge RN Position: [facility] RN Member Role: Primary Care Nurse Name: Polly Cabrera RN Position: [facility] RN Member Role: Primary Care Nurse Name: Jessica Bermudez Position: [facility] RN Member Role: Primary Care Nurse Name: Kathryn Griffin RN Position: [facility] RN Member Role: Primary Care Nurse Name: Lizbeth Adkins RN Position: [facility] RN Member Role: Primary Care Nurse Name: Parminder Lutz RN Position: [facility] RN Member Role: Primary Care Nurse Name: Rubin Rainey LPN Position: [facility] RN Member Role: Primary Care Nurse Name: Jennifer Mcgowan RN Position: [facility] RN Member Role: Primary Care Nurse Name: Melissa Tesfaye RN Position: [facility] RN Member Role: Primary Care Nurse Name: Ileana Salazar RN Position: [facility] RN Member Role: Primary Care Nurse Name: Pablo Fernandez RN Position: [facility] RN Member Role: Primary Care Nurse Name: Kumar Ely RN Position: [facility] RN Member Role: Primary Care Nurse Name: Roz Wright RN Position: [facility] RN Member Role: Primary Care Nurse Name: Kailyn Winters RN Position: [facility] RN Member Role: Primary Care Nurse Name: Ruth Nolan RN Position: [facility] RN Member Role: Primary Care Nurse Name: Cecily Lomeli RN Position: [facility] RN Member Role: Primary Care Nurse Name: Matheus Shields RN Position: [facility] RN Member Role: Primary Care Nurse Name: Noemi Manrique RN Position: [facility] RN Member Role: Primary Care Nurse Name: Miesha Perez RN Position: [facility] RN Member Role: Primary Care Nurse Name: Eladia Freeman RN Position: [facility] RN Member Role: Primary Care Nurse Name: Cecil Clarke Position: [facility] RN Member Role: Primary Care Nurse Name: Montez Ernst RN Position: [facility] RN Member Role: Primary Care Nurse Name: Jaime Jim RN Position: [facility] RN Member Role: Primary Care Nurse Name: Herbie Angel RN Position: [facility] RN Member Role: Primary Care Nurse Name: Pedrito Garcia RN Position: [facility] RN Member Role: Primary Care Nurse Name: Sherrill Cramer RN Position: [facility] RN Member Role: Primary Care Nurse Name: Anne Polo LPN Position: [facility] RN Member Role: Primary Care Nurse Name: Tyesha Troy RN Position: [facility] RN Member Role: Primary Care Nurse Name: Alex Montesinos MD Position: [facility] Physician - Primary Care Member Role: PCP Address: [address] [place] [address], [address] Telecom: Name: Turner Danielle RN Position: [facility] RN Member Role: Primary Care Nurse Name: Lupe Armendariz RN Position: [facility] RN Member Role: Primary Care Nurse Name: Brandee Alvarenga RN Position: [facility] RN Member Role: Primary Care Nurse Name: Massiel Gupta RN Position: [facility] RN Member Role: Primary Care Nurse Name: Kristy Nicolas RN Position: S RN Member Role: Primary Care Nurse Name: Lisa Champion RN Position: [facility] RN Member Role: Primary Care Nurse Name: Camille Young RN Position: [facility] RN Member Role: Primary Care Nurse Name: Lisa Ron LPN Position: S RN Member Role: Primary Care Nurse Name: Cher Holt RN Position: [facility] RN Member Role: Primary Care Nurse Name: Amelia Silva RN Position: [facility] RN Member Role: Primary Care Nurse Name: Lesley Gongora RN Position: [facility] RN Member Role: Primary Care Nurse Name: Jeremy Arias RN Position: [facility] RN Member Role: Primary Care Nurse Name: Didier López RN Position: [facility] RN Member Role: Primary Care Nurse Care Team Related Persons Name: GINNA RUIZ Name: IRVING SWAIN Insurance Providers Guarantor name: Health Plan Information #: 1 Payer: [employer] [facility] Payer Identifier: DERRICK Member Number: [id number] Group Number: [id number] Subscriber Identifier: [id number] Relationship to Subscriber: self Coverage Type: Medicaid (Managed Care) Coverage Verification Date: Telecom: NA Address:
--- OUTSIDE RECORDS SUMMARY | 2025-01-31 22:06 | XMS_ITS | Continuity of Care Document ---
Author Organization [facility] ter Address [address] [place] [id number]- Care Team Providers Care Beauty Advisor Name Role Phone Jaguar PITTS, Alex Talley Primary Care Physician Encounter [facility]s): 01/31/25 - 01/31/[address] [address]- Discharge Disposition: A-D/C Walkout Attending Physician: Not on Staff, Attending MD Admitting Physician: Not on Staff, Admitting MD Referring Physician: Not on Staff, Referring MD Encounter Type: Disch ES Allergies, Adverse Reactions, Alerts Substance Criticality Severity Reaction Reaction Severity Status CT Contrast Dye HIVES Acti ve ciprofloxacin rash Active Toradol 1 hives Active Bee Stings hives Active Other Food Allergy 2 Active 1tolerates ibuprofen 2[place] Immunizations Given and Recorded Vaccine Date Status Refusal Reason SARS-CoV-2 (COVID-19) mRNA BNT-162b2 vac 06/28/20 Recorded Medications acetaminophen 325 mg oral tablet 975 mg, 3, tablet, By Mouth, 3 times a day, PRN, not to exceed 4000 mg/day, # 270 tablet, Refills 0, Tot. Refills 0, Maintenance, Pain , Mild, 11/10/24 1:42:00 PM EDT, Route to Pharmacy Electronically, [facility], Partial fill upon patient request [...] 12:16:00 PM EST, Route to Pharmacy Electronically, [facility], Partial fill upon patient request if [...] AM EST, 01/30/25 11:50:00 AM EST, Tablet, [facility], Partial fill upon patient request [...] Maintenance, 01/30/25 11:51:00 AM EST, REC Powder, [facility], Partial fill upon patient request if [...] 1:42:00 PM EDT, Route to Pharmacy Electronically, [facility], Partial fill upon patient request [...] 1:23:00 PM EDT, Route to Pharmacy Electronically, [facility], Partial fill upon patient request if the [...] 11:50:00 AM EST, Route to Pharmacy Electronically, [facility], Partial fill upon patient request [...] Maintenance, 11/10/24 1:27:00 PM EDT, REC Powder, [facility], Partial fill upon patient request [...] Replace Required Details, Route to Pharmacy Electronically, [facility], Partialfill upon patient request if the [...] Refills, Maintenance, 11/10/24 1:25:00 PM EDT, Tablet, [facility], Partial fill upon patient request [...] 0 Refills, Maintenance,12/27/24 3:11:00 PM EST, Suspension, [facility], Partial fill upon patient request [...] stop, # 68 tablet, 0 Refills, Acute 03/30/25 11:47:00 AM EST, 01/30/25 11:47:00 AM EST, Capsule, [facility], Partial fill upon patient request [...] Assessment Assessment Component Result Effecti ve Date [place] coma score total 15 12/16 Mental Status Assessment Assessment Assessment Component Result Effecti ve Date [place] coma score total 15 12/16 Dry body weight Measured 81 12/16 Body height 163 01/31/25 Body weight 81 01/31/25 Problem List Condition Confirmation Course Effective Dates Status Health St atus Informant Alcohol dependence Confirmed Active Anemia Confirmed Active Anxiety Confirmed Active Clostridium difficile colitis Confirmed Active Gastric ulcer Confirmed Active GERD (gastroesophageal reflux disease) Confirmed Active H/O colectomy Confirmed Active History of GI bleed Confirmed Active History of colon cancer in adulthood Confirmed Active HTN (hypertension) Confirmed Active Neuropathy Confirmed Active Obese class I Confirmed Active Hepatic steatosis Confirmed Active Vital Signs Most recent to oldest [Reference Range]: 1 2 Height 163 cm (01/31/25 9:01 PM) 163 cm (01/31/25 8:28 PM) Weight 81 kg (01/31/25 9:01 PM) 81 kg (01/31/25 8:28 PM) Oxygen Saturation [94-100 %] 95 % (01/31/25 8: PM) Pulse Rate [55-90 bpm] 125 bpm *H* (01/31/25 8:28 PM) Body Mass Index [18.5-24.99 kg/m2] 30.49 kg/m2 *H* (01/31/25 8:28 PM) Blood Pressure [90-138/55-84 mm Hg] 111/ 61mm Hg (01/31/25 8:28 PM) Respiratory Rate [16-30 br/min] 18 br/mi n (01/31/25 8:28 PM) Temperature [96.8-100.4 DegF] 98.8 DegF (01/31/25 8:28 PM) Mode of Delivery (Oxygen) Room air (01/31/25 8:28 PM) Blood pressure sites Arm, left (01/31/25 8:28 PM) Temperature Route Oral (01/31/25 8:28 PM) Dry Weight 81 kg (01/31/25 9:01 PM) 81 kg (01/31/25 8:28 PM) Weight Obtained Via Standing scale (01/31/25 8:28 PM) Dry Weight Obtained Via Standing scale (01/31/25 8:28 PM) Social History Social History Type Response Smoking Status Never (less than 100 in lifetime) entered on: 05/08/24 Sex Sex Representation Female (finding) Status Not Patient Care team information Care Team Personnel Name: Hilario Baker RN Position: [facility] RN Member Role: Primary Care Nurse Name: Marisol Valderrama RN Position: [facility] RN Member Role: Primary Care Nurse Name: Mable Valverde RN Position: [facility] RN Member Role: Primary Care Nurse Name: Eric Goldberg RN Position: [facility] RN Member Role: Primary Care Nurse Name: Анна Jordan RN Position: [facility] RN Member Role: Primary Care Nurse Name: Yany Hodge RN Position: [facility] RN Member Role: Primary Care Nurse Name: Polly Cabrera RN Position: [facility] RN Member Role: Primary Care Nurse Name: Jessica Bermudez Position: [facility] RN Member Role: Primary Care Nurse Name: Kathryn Griffin RN Position: [facility] RN Member Role: Primary Care Nurse Name: Lizbeth Adkins RN Position: [facility] RN Member Role: Primary Care Nurse Name: Parminder Lutz RN Position: [facility] RN Member Role: Primary Care Nurse Name: Rubin Rainey LPN Position: [facility] RN Member Role: Primary Care Nurse Name: Jennifer Mcgowan RN Position: [facility] RN Member Role: Primary Care Nurse Name: Melissa Tesfaye RN Position: [facility] RN Member Role: Primary Care Nurse Name: Ileana Salazar RN Position: [facility] RN Member Role: Primary Care Nurse Name: Pablo Fernandez RN Position: [facility] RN Member Role: Primary Care Nurse Name: Kumar Ely RN Position: [facility] RN Member Role: Primary Care Nurse Name: Roz Wright RN Position: [facility] RN Member Role: Primary Care Nurse Name: Kailyn Winters RN Position: [facility] RN Member Role: Primary Care Nurse Name: Ruth Nolan RN Position: [facility] RN Member Role: Primary Care Nurse Name: Cecily Lomeli RN Position: [facility] RN Member Role: Primary Care Nurse Name: Matheus Shields RN Position: [facility] RN Member Role: Primary Care Nurse Name: Noemi Manrique RN Position: [facility] RN Member Role: Primary Care Nurse Name: Miesha Perez RN Position: [facility] RN Member Role: Primary Care Nurse Name: Lisa Freeman RN Position: [facility] RN Member Role: Primary Care Nurse Name: Cecil Clarke Position: [facility] RN Member Role: Primary Care Nurse Name: Montze Ernst RN Position: [facility] RN Member Role: Primary Care Nurse Name: Jaime iJm RN Position: [facility] RN Member Role: Primary Care Nurse Name: Herbie Angel RN Position: S RN Member Role: Primary Care Nurse Name: Pedrito Garcia RN Position: S RN Member Role: Primary Care Nurse Name: Sherrill Cramer RN Position: [facility] RN Member Role: Primary Care Nurse Name: Anne Polo LPN Position: [facility] RN Member Role: Primary Care Nurse Name: Tyesha Troy RN Position: [facility] RN Member Role: Primary Care Nurse Name: Alex Montesinos MD Position: [facility] Physician - Primary Care Member Role: PCP Address: [address] [place] [address], [address] [place], [place] [address] Telecom: Name: Turner Danielle RN Position: [facility] RN Member Role: Primary Care Nurse Name: Lupe Armendariz RN Position: [facility] RN Member Role: Primary Care Nurse Name: Brandee Alvarenga RN Position: [facility] RN Member Role: Primary Care Nurse Name: Massiel Gupta RN Position: [facility] RN Member Role: Primary Care Nurse Name: Kristy Nicolas RN Position: [facility] RN Member Role: Primary Care Nurse Name: Lisa Champion RN Position: [facility] RN Member Role: Primary Care Nurse Name: Camille Young RN Position: [facility] RN Member Role: Primary Care Nurse Name: Lisa Ron LPN Position: [facility] RN Member Role: Primary Care Nurse Name: Cher Holt RN Position: [facility] RN Member Role: Primary Care Nurse Name: Amelia Silva RN Position: [facility] RN Member Role: Primary Care Nurse Name: Lesley Gongora RN Position: [facility] RN Member Role: Primary Care Nurse Name: Jeremy Arias RN Position: [facility] RN Member Role: Primary Care Nurse Name: Didier López RN Position: [facility] RN Member Role: Primary Care Nurse Care Team Related Persons Name: RUIZGINNA AMEZQUITA Name: IRVING SWAIN Insurance Providers Guarantor name: Health Plan Information #: 1 Payer: [employer] Payer Identifier: Member Number: [id number] Group Number: [id number] Subscriber Identifier: [id number] Relationship to Subscriber: self Coverage Type: Self-pay (Includes applicants for insurance and Medicaid applicants) Coverage Verification Date: NA Telecom: NA Address: NA
--- NOTE | 2025-02-04 | ECG_ITS ---
Test Reason : tachy Blood Pressure : */* mmHG Vent. Rate : 122 BPM Atrial Rate : 122 BPM P-R Int : 124 ms QRS Dur : 78 ms QT Int : 342 ms P-R-T Axes : 6 6 34 degrees QTcB Int : 487 ms Sinus tachycardia with Premature supraventricular complexes Low voltage QRS Abnormal ECG No previous ECGs available Referred By: Generic ED Physician Electronically Signed By: Gonzalo Solorzano
--- NOTE | ~2025-02-04 | CT_ITS ---
CLINICAL HISTORY: diffuse abd pain CT abdomen and pelvis without contrast Comparison: CT/SR - CT ABDOMEN PELVIS WO IV CON - 12/05/24 02:10 EDT Findings: No consolidation or effusion. Gallbladder is surgically absent. No focal hepatic lesion identified. Pancreas spleen and adrenal glands are within normal limits. Kidneys are non hydronephrotic. Scattered diverticula are present throughout the colon. Anastomotic sutures are noted in the distal sigmoid. Pelvic contents unremarkable. Normal appendix. The bones are intact. IMPRESSION: No acute findings. This document has been electronically signed by: Chris Fall MD, PHD on 02/05/2025 00:28:20
[2025-02-04 17:04] VITALS: BP 130/68; PULSE 115; O2SAT 100
[2025-02-04 17:08] VITALS: PULSE 127; RESP 16; TEMP 37.1; O2SAT 97; BMI 28.9
--- NOTE | 2025-02-04 18:33 | PC.NURSE ---
Pt very hard stick, multiple attempts.
--- NOTE | 2025-02-04 19:16 | MHC.EDTECH ---
hot packed patient for lab draw in which patient a hard stick, found vein on back of right arm explained to patient i would be able to obtain labs however patient refused stating she only wants to be poked one time and doesnt want just labs, i let her know she was attempted iv access multiple times with out success and i was trying to get labs drawn to start the ed process for the provider until we can have someone preform and ultrasound guided line again patient refused
--- OUTSIDE RECORDS SUMMARY | 2025-02-04 19:19 | XMS_ITS | Clinical Summary ---
Author Organization [facility] Address [address] [place] [address] Phone Care Team Providers Care Comparator Operator Name Role Phone Alex Montesinos MD Primary Care Provider [phone] Allergies Active Allergy Reactions Criticality Noted Date Comments Bee Venom Protein (Honey Bee) 2024 Ciprofloxacin Anaphylaxis High 03/08/2024 Iodinated Contrast Media Rash Low 06/14/2024 Ketorolac Hives Medium 06/14/2024 [place] 09/05/2024 Medications acamprosate (CAMPRAL) 333 mg EC [...] 1 (one) time each day. 25 tablet 5 10/05/19 26 Active Additional Information Patient not [...] Acute lactic acidosis 06/06/2024 Metabolic acidosis 03/27/2024 Surgical History Surgery Date Site/Laterality Comments COLON SURGERY CHOLECYSTECTOMY COLECTOMY Medical History Medical History Date Comments Colon cancer (CMS/HCC V24, CMS/HCC V28) Fatty liver Alcoholic peripheral neuropathy (CMS/HCC V24) Hypertension Alcohol use disorder Hypomagnesemia Chronic [...] Orientation Straight 03/08/2024 8: 39 PM EST Last Filed Vital Signs Vital Sign Reading [...] Procedure Name Priority Date/Time Associated Diagnosis Comments COMPREHENSIVE METABOLIC PANEL STAT 10/06/2024 5:02 AM EDT from Last 3 Months or Most Recently Relevant to Health Maintenance Results * (ABNORMAL) Comprehensive Metabolic Panel (CMP) (10/06/2024 5:02 AM EDT) Sodium 142 133 - 145 mmol/L LAB CHEMISTRY METHOD 10/06/2024 6:19 AM [facility] Potassium 3.2(L) 3.5 - 5.5 mmol/L LAB CHEMISTRY METHOD 10/06/2024 6:19 AM [facility] Chloride 113(H) 96 - 110 mmol/L LAB CHEMISTRY METHOD 10/06/2024 6:19 AM [facility] CO2 22 21 - 32 mmol/L LAB CHEMISTRY METHOD 10/06/2024 6:19 AM [facility] Anion Gap 7 3 - 11 LAB CHEMISTRY METHOD 10/06/2024 6:19 AM [facility] Glucose 90 70 - 100 mg/dL LAB CHEMISTRY METHOD 10/06/2024 6:19 AM [facility] BUN 6 5 - 25 mg/dL LAB CHEMISTRY METHOD 10/06/2024 6:19 AM [facility] Creatinine 0.29(L) 0.50 - 1.10 mg/dL LAB CHEMISTRY METHOD 10/06/2024 6:19 AM [facility] eGFR 130 >=60 mL/min/1. 73m2 LAB CHEMISTRY METHOD 10/06/2024 6:19 AM [facility] Comment:Calculation based on the Chronic Kidney Disease Epidemiology Collaboration (CKD-EPI) equation refit without adjustment for race. BUN/Creatinine Ratio 20.7 LAB CHEMISTRY METHOD 10/06/2024 6:19 AM [facility] Calcium 6.3(L) 8.5 - 10.5 mg/dL LAB CHEMISTRY METHOD 10/06/2024 6:19 AM [facility] AST (SGOT) 45(H) 10 - 42 unit/L LAB CHEMISTRY METHOD 10/06/2024 6:19 AM [facility] ALT (SGPT) 31 10 - 60 unit/L LAB CHEMISTRY METHOD 10/06/2024 6:19 AM [facility] Alkaline Phosphatase 55 42 - 121 unit/L LAB CHEMISTRY METHOD 10/06/2024 6:19 AM [facility] Total Protein 5.5(L) 6.0 - 8.0 g/dL LAB CHEMISTRY METHOD 10/06/2024 6:19 AM [facility] Albumin 2.5(L) 3.2 - 5.0 g/dL LAB CHEMISTRY METHOD 10/06/2024 6:19 AM [facility] Total Bilirubin 0.3 0.0 - 1.4 mg/dL LAB CHEMISTRY METHOD 10/06/2024 6:19 AM [facility] Blood Venous blood specimen / Unknown Venipuncture / Unknown 10/06/2024 5:02 AM EDT 10/06/2024 5:18 AM EDT us Ileana VIERA LAB BLOOD ORDERABLES Fin al Result [facility] [address] [place] [address], from Last 3 Months or Most Recently Relevant to Health Maintenance Insurance [employer] Advance Directives * Full Code - [...] currently active code status orders. Care Teams Comparator Operator Relationship Specialty Start Date End Date Alex Montesinos MD [address] [place] [address] [address] [place], [place] PCP - General Internal Medicine 10/04/24
[2025-02-04 19:51] LABS: MANUAL DIFF FLAG NO
[2025-02-04 19:52] LABS: Hematocrit 38.9 % (37.0-47.0); Hemoglobin 13.5 g/dl (12.0-16.0); Imm Gran Abs Auto 0.02 X10*3/uL (0.00-0.03); Imm Gran Pct Auto 0.3 % (0.0-0.4); Lymphocytes Absolute Auto 2.8 X10*3/uL (1.2-4.9); Mean Corpuscular HGB Conc 34.7 g/dl (31.0-35.0); Mean Corpuscular Hemoglobin 30.1 pg (27.0-33.0); Mean Corpuscular Volume 86.6 fL (80.0-98.0); NRBC Abs Auto 0.000 X10*3/uL (0.0-0.012); NRBC Pct Auto 0.0 /100WBC (0.0-0.2); Platelet Count 279 X10*3/uL (160-400); Red Blood Count 4.49 X10*6/uL (4.20-5.50); White Blood Count 6.5 X10*3/uL (4.8-10.8)
[2025-02-04 20:07] VITALS: BP 136/83; RESP 13; TEMP 36.8; O2SAT 97
[2025-02-04 20:09] LABS: Alanine Aminotransferase 25 U/L (0-31); Albumin Level 4.7 g/dL (3.5-5.0); Alkaline Phosphatase 87 U/L (39-117); Anion Gap 27 (12-20); Aspartate Amino Transferase 39 U/L (5-31); Blood Urea Nitrogen 9 mg/dL (9-16); Calcium 8.9 mg/dL (8.4-10.2); Carbon Dioxide 16 mmol/L (22-29); Chloride 103 mmol/L (96-108); Creatinine Clr Calc Pharmacy 124.6; Estimated Glomerular Filt Rate > 60; Lipase 22 U/L (8-78); Magnesium 1.8 mg/dL (1.6-2.6); Potassium 3.6 mmol/L (3.3-5.1); Sodium 142 mmol/L (135-145); Total Protein 8.1 g/dL (6.5-8.0)
[2025-02-04 20:13] LABS: Appearance Urine Clear; Glucose Urine UA Negative (Negative); PH 5.5 (5.0-9.0); Specific Gravity - Urine 1.025 (1.005-1.025); UMIC TRIGGER UACC YES
--- NOTE | 2025-02-04 20:41 | PC.NURSE ---
Pt reporting 8/10 abd pain Plan of care ongoing.
--- NOTE | 2025-02-04 21:02 | ED.ABDPAIN ---
HPI - Abdominal Pain General Chief Complaint: Abdominal Pain Stated Complaint: ABD PAIN,ETOH W/DRAWAL,+CDIFF PER EMS Time Seen by Provider: 02/04/25 19:17 History of Present Illness HPI narrative: patient is a 49-year-old female with a long history of ETOH use. History of colon cancer status post resection about 3 years ago reported nausea no vomiting also having diffuse abdominal pain. Has a history of C diff. patient from home. Claims that she has not been drinking alcohol since this morning. No fever. Patient claims she had 4 bloody Camille this morning. Had bowel movements. Question blood. Related Data Previous Rx's ?Medication ?Instructions ?Recorded dicyclomine 20 mg tablet 20 mg PO TID #10 tabs 12/05/24 prochlorperazine maleate 10 mg 10 mg PO Q8H PRN nausea and 12/05/24 tablet (Compazine) vomiting #14 tabs ondansetron 4 mg disintegrating 4 mg PO Q8H PRN nausea and 02/05/25 tablet vomiting #10 tabs Allergies Allergy/AdvReac Type Severity Reaction Status Date / Time ciprofloxacin Allergy Unknown Verified 02/04/25 17:14 Iodinated Contrast Media Allergy Anaphylaxis Verified 02/04/25 17:14 (Contrast Dye) haloperidol (From Haldol) AdvReac Agitated Verified 02/04/25 17:14 ketorolac (From Toradol) AdvReac Abdominal Verified 02/04/25 17:14 Pain Review of Systems Review of Systems positive abdominal pain Yes all other systems are reviewed and are negative [facility] Past Medical History Attestation statement: The following information was validated with the patient. Social History Social History Alcohol intake: current Alcohol intake frequency: 3 or more drinks per day Alcohol type: wine Physical Exam ED Exam Exam: Appearance: Alert. Oriented X3. No acute distress. Eyes: Pupils equal, round and reactive to light. ENT: Pharynx normal. Neck: Normal inspection. Neck supple. No lymph nodes noted. No crepitus CVS: Normal heart rate and rhythm. Pulses normal. Normal S1 and S2 Respiratory: No respiratory distress. Breath sounds normal. No Wheezing. No rales Abdomen: Soft and nontender. No rigidity. No distention. good BS x4 Skin: Skin warm and dry. Normal skin color. Normal skin turgor. rectal exam showed brown stool. Sent off for guaiac. Done with the tech present Extremities: No lower extremity edema. Neurovascular intact to all extremities. No Lacerations. No Rash Neuro: Oriented X 3. No motor deficit. No sensory deficit. Moving all extermities. No slurred speech Vital Signs: Vital Signs - 24 hr 02/05/25 00:10 02/05/25 06:08 02/05/25 07:20 Temperature 98.2 F 98.9 F 98.9 F Pulse Rate 117 H 125 H 125 H Respiratory Rate 12 19 19 Blood Pressure 110/70 152/97 H 152/97 H Pulse Oximetry 95 98 98 Oxygen Delivery Method Room Air Room Air BMI result Body Mass Index 28.9 Procedures Ultrasound ED POC Ultrasound: EMERGENCY ULTRASOUND REPORT?Ultrasound-Assisted ED Procedures Indication: Vein Catheterization: RN unable to obtain 20 gauge 1-3/4 inch IV placed in left upper extremity. Adequate blood return flushes well secured with Tegaderm Performed by Kalli Miguel PA-C on February 04, at approximately 9:30 p.m. Medical Decision Making Medical Decision Making MDM Narrative: patient presented today with having abdominal pain. He has been ongoing for few hours. Had a previous history of abdominal surgery. Had diarrhea for 5 days. Has a previous history of C diff. patient from home. We got labs on patient. Her white count is 6.5. Her VBG showed no significant acidosis. Labs however showed an anion gap of 27. Patient's alcohol is 340. Likely this is secondary to alcoholic ketoacidosis. Patient is carbon dioxide is 16 we did give patient a L of fluids we did a CT of the abdomen CT was grossly negative for acute obstruction abscess perforation patient is assisted for her IV to be pulled got very upset got very belligerent the IV was pulled. Patient complain of question bloody stool. I did a rectal exam there brown stool that was heme negative. Her hemoglobin is 13.5 there is no evidence for bleeding. We will feed patient at this point if anion gap normalizes this is all AKA. Given fluids. Patient is in stable condition. 7:04 AM 02/05/2025 (Dr. Jackie Alejandro, D.O.) clinical picture improving significantly after droperidol and Benadryl. She is tolerating oral intake. Stable for discharge at this point. Sober ride is picking her up. We had an extensive discussion regarding alcohol use disorder, options for treatment and importance of eating food and avoiding alcohol if possible. Using shared decision making, plan for discharge home to follow-up with primary care and/or specialist. Patient understands and agrees with plan for discharge. Discharged home in stable condition. Differential Diagnosis Differential Diagnoses: The differential diagnosis associated with the presentation includes Alcoholic ketoacidosis obstruction abscess perforation Admission/Observation Consideration of admission/observation: Escalation of care including admission/observation considered Lab Data MDM Lab Attestation statement: I reviewed the patient's lab results. 02/04/25 19:44 02/05/25 04:06 Labs: Lab Results 02/04/25 02/04/25 02/04/25 Range/Units 19:44 20:06 21:22 WBC 6.5 (4.8-10.8) X10*3/uL RBC 4.49 (4.20-5.50) X10*6/uL Hgb 13.5 (12.0-16.0) g/dl Hct 38.9 (37.0-47.0) % MCV 86.6 (80.0-98.0) fL MCH 30.1 (27.0-33.0) pg MCHC 34.7 (31.0-35.0) g/dl RDW 14.8 (11.0-16.0) % Plt Count 279 (160-400) X10*3/uL MPV 8.7 L (9.4-12.3) fL Immature Gran % (Auto) 0.3 (0.0-0.4) % Neut % (Auto) 50.4 (45-73) % Lymph % (Auto) 42.7 H (20-40) % [place] % (Auto) 4.9 (2-11) % Eos % (Auto) 0.5 (0-4) % Baso % (Auto) 1.2 (0-2) % Lymph # (Auto) 2.8 (1.2-4.9) X10*3/uL [place] # (Auto) 0.3 (0.1-1.2) X10*3/uL Eos # (Auto) 0.0 (0.0-0.4) X10*3/uL Baso # (Auto) 0.1 (0.0-0.2) X10*3/uL Abs Immat Gran (auto) 0.02 (0.00-0.03) X10*3/uL Absolute Neuts (auto) 3.3 (2.0-8.3) x10*3/uL Absolute Nucleated RBC 0.000 (0.0-0.012) X10*3/uL Nucleated RBC % (auto) 0.0 (0.0-0.2) /100WBC VBG pH (7.32-7.43) VBG pCO2 mmHg VBG pO2 mmHg VBG HCO3 (22-26) mmol/L VBG O2 Saturation % VBG Base Excess mmol/L Sodium 142 (135-145) mmol/L Potassium 3.6 (3.3-5.1) mmol/L Chloride 103 (96-108) mmol/L Carbon Dioxide 16 L (22-29) mmol/L Anion Gap 27 H (12-20) BUN 9 (9-16) mg/dL Creatinine 0.56 (0.5-1.4) mg/dL Estim Creat Clear Calc 124.6 Estimated GFR > 60 Random Glucose 123 H (60-115) mg/dL Calcium 8.9 (8.4-10.2) mg/dL Magnesium 1.8 (1.6-2.6) mg/dL Total Bilirubin 0.4 (0.0-1.0) mg/dL AST 39 H (5-31) U/L ALT 25 (0-31) U/L Alkaline Phosphatase 87 (39-117) U/L Total Protein 8.1 H (6.5-8.0) g/dL Albumin 4.7 (3.5-5.0) g/dL Lipase 22 (8-78) U/L Beta-Hydroxybutyrate (0.02-0.27) mmol/L Urine Color Yellow Urine Appearance Clear Urine pH 5.5 (5.0-9.0) Ur Specific [place] 1.025 (1.005-1.025) Urine Protein 100 (2+) H (Neg-Trace) mg/dL Urine Glucose (UA) Negative (Negative) mg/dL Urine Ketones Trace (Negative) mg/dL Urine Blood Negative (Negative) Urine Nitrite Negative (Negative) Ur Leukocyte Esterase Negative (Negative) Urine RBC 0-2 (0-2) /HPF Urine WBC 0-5 (0-5) /HPF Ur Squamous Epith Cells 3-5 (0-2) /HPF Urine Bacteria None Seen (None Seen) Hyaline Casts 6-10 (0-2) /LPF Stool Occult Blood NEGATIVE (NEGATIVE) Ethyl Alcohol 341 H* mg/dL 02/04/25 02/04/25 02/05/25 Range/Units 21:32 21:38 04:06 WBC (4.8-10.8) X10*3/uL RBC (4.20-5.50) X10*6/uL Hgb (12.0-16.0) g/dl Hct (37.0-47.0) % MCV (80.0-98.0) fL MCH (27.0-33.0) pg MCHC (31.0-35.0) g/dl RDW (11.0-16.0) % Plt Count (160-400) X10*3/uL MPV (9.4-12.3) fL Immature Gran % (Auto) (0.0-0.4) % Neut % (Auto) (45-73) % Lymph % (Auto) (20-40) % [place] % (Auto) (2-11) % Eos % (Auto) (0-4) % Baso % (Auto) (0-2) % Lymph # (Auto) (1.2-4.9) X10*3/uL [place] # (Auto) (0.1-1.2) X10*3/uL Eos # (Auto) (0.0-0.4) X10*3/uL Baso # (Auto) (0.0-0.2) X10*3/uL Abs Immat Gran (auto) (0.00-0.03) X10*3/uL Absolute Neuts (auto) (2.0-8.3) x10*3/uL Absolute Nucleated RBC (0.0-0.012) X10*3/uL Nucleated RBC % (auto) (0.0-0.2) /100WBC VBG pH 7.41 (7.32-7.43) VBG pCO2 34 mmHg VBG pO2 63 mmHg VBG HCO3 21 L (22-26) mmol/L VBG O2 Saturation 84.0 % VBG Base Excess -1.8 mmol/L Sodium 142 (135-145) mmol/L Potassium 3.7 (3.3-5.1) mmol/L Chloride 104 (96-108) mmol/L Carbon Dioxide 18 L (22-29) mmol/L Anion Gap 24 H (12-20) BUN 8 L (9-16) mg/dL Creatinine 0.54 (0.5-1.4) mg/dL Estim Creat Clear Calc 129.3 Estimated GFR > 60 Random Glucose 112 (60-115) mg/dL Calcium 8.3 L D (8.4-10.2) mg/dL Magnesium (1.6-2.6) mg/dL Total Bilirubin (0.0-1.0) mg/dL AST (5-31) U/L ALT (0-31) U/L Alkaline Phosphatase (39-117) U/L Total Protein (6.5-8.0) g/dL Albumin (3.5-5.0) g/dL Lipase (8-78) U/L Beta-Hydroxybutyrate 0.43 H (0.02-0.27) mmol/L Urine Color Urine Appearance Urine pH (5.0-9.0) Ur Specific [place] (1.005-1.025) Urine Protein (Neg-Trace) mg/dL Urine Glucose (UA) (Negative) mg/dL Urine Ketones (Negative) mg/dL Urine Blood (Negative) Urine Nitrite (Negative) Ur Leukocyte Esterase (Negative) Urine RBC (0-2) /HPF Urine WBC (0-5) /HPF Ur Squamous Epith Cells (0-2) /HPF Urine Bacteria (None Seen) Hyaline Casts (0-2) /LPF Stool Occult Blood (NEGATIVE) Ethyl Alcohol mg/dL Independent Interpretation I performed an independent interpretation of an: CT Scan ( no obstruction no abscess no perforation) Radiology Impression Discussion of test interpretation with radiology: I have reviewed the radiologist's reading. Chronic Conditions Patient?s care impacted by: Other (alcohol use disorder) previous history of colon cancer Social Determinants Patient?s care significantly limited by Social Determinants of Health including: Problems related to primary support group Medications Administered Discontinued Medications Generic Name Dose Route Start Last Admin Trade Name Freq PRN Reason Stop Dose Admin Diphenhydramine HCl 50 mg 02/05/25 05:35 02/05/25 05:45 Diphenhydramine Hcl 50 Mg/Ml Vial IM 02/05/25 05:36 50 mg ONCE ONE Administration Droperidol 1.25 mg 02/05/25 05:35 02/05/25 05:44 Droperidol 5 Mg/2 Ml Vial IM 02/05/25 05:36 1.25 mg ONCE ONE Administration Hydromorphone HCl 0.5 mg 02/04/25 20:57 02/04/25 21:32 Hydromorphone Hcl 0.5 Mg/0.5 Ml Syringe IVPUSH 02/04/25 20:58 0.5 mg ONCE ONE Administration Protocol Hydromorphone HCl 0.5 mg 02/04/25 23:04 02/04/25 23:23 Hydromorphone Hcl 0.5 Mg/0.5 Ml Syringe IVPUSH 02/04/25 23:05 0.5 mg ONCE ONE Administration Protocol Sodium Chloride 1,000 mls @ 999 mls/hr 02/04/25 21:00 02/04/25 23:58 Ns IV 02/04/25 22:00 Infused .Q1H1M GLADYS Infusion Sodium Chloride 1,000 mls @ 999 mls/hr 02/04/25 21:00 02/04/25 23:59 Ns IV 02/04/25 22:00 Infused .Q1H1M GLADYS Infusion Ondansetron HCl 4 mg 02/04/25 21:38 02/04/25 22:48 Ondansetron Hcl 4 Mg/2 Ml Vial IVPUSH 02/04/25 21:39 4 mg ONCE ONE Administration Ondansetron HCl 4 mg 02/05/25 00:54 02/05/25 00:57 Ondansetron Odt 4 Mg Tab.Rapdis TRANSLINGU 02/05/25 00:55 4 mg ONCE ONE Administration Discharge Plan Discharge Clinical Impression: Alcohol intoxication, Alcoholic ketoacidosis Patient Disposition: Home, Self-Care Instructions: Alcohol Intoxication (DC) Additional Instructions: Alcohol use disorder You were seen in the Emergency Department today for treatment of alcohol use disorder.? You may have been given medications to help with your withdrawal symptoms.? Please do not drink alcohol with them. This is very dangerous and can cause respiratory depression or other adverse reactions depending on the medication. If you would like to cut down or stop your alcohol use please consider calling our outpatient Addiction Treatment office:? [facility] (M-F [id number]) [address] You have also been given a list of treatment providers in the area that can assist as well.? If you experience seizures, vomiting blood, black stools, falls, severe headache, chest pain, fevers, trouble breathing, hallucinations or any other concerns you need to call 911 or seek immediate care. Please stay hydrated. Prescriptions: New ondansetron 4 mg tablet,disintegrating 4 mg PO Q8H PRN (Reason: nausea and vomiting) Qty: 10 0RF No Action dicyclomine 20 mg tablet 20 mg PO TID Qty: 10 0RF prochlorperazine maleate [Compazine] 10 mg tablet 10 mg PO Q8H PRN (Reason: nausea and vomiting) Qty: 14 0RF Referrals: Alex Montesinos MD [Primary Care Provider, Internal Medicine] - 02/07/25 Interventions: ED Discharge Assessment Last Done: 02/05/25 07:20 Discharge Date/Time: 02/05/25 07:28 Print Language: Bermudian
[2025-02-04 21:32] VITALS: RESP 17
[2025-02-04 21:39] LABS: OBS Int Ctl Valid YES
--- NOTE | 2025-02-04 21:39 | PC.NURSE ---
Pt medicated per [facility] Plan of care ongoing.
[2025-02-04 21:40] LABS: OBS1 NEGATIVE (NEGATIVE)
[2025-02-04 21:41] LABS: Venous Blood Gas Refer to POC result
[2025-02-04 21:43] LABS: VBG HCO3 21 mmol/L (22-26); VBG O2 % Saturation 84.0 %
--- NOTE | 2025-02-04 22:59 | PC.NURSE ---
Pt medicated per apr Pt refused to go with radiology Plan of care ongoing.
--- NOTE | 2025-02-04 23:08 | PC.NURSE ---
Spoke with pt, pt agreeable to go to radiology. Provider notified and aware pt requesting pain meds Plan of care ongoing.
--- NOTE | 2025-02-04 23:40 | PC.NURSE ---
Pt medicated per mar. After med administration, Pt adamant about having the IV removed. This RN educated pt regarding the importance of keeping the IV in Pt reported pain at IV site, no redness or infiltration noted IV removed per pts request. Provider notified and aware. Plan of care ongoing.
[2025-02-05 00:10] VITALS: BP 110/70; PULSE 117; RESP 12; TEMP 36.8; O2SAT 95
--- NOTE | 2025-02-05 01:57 | MHC.EDTECH ---
This tech was informed not to complete the lab draw until the patient ate something. The patient stated she was nauseas the RN was informed. Food was provided. The patient informed RN that she was no eating until she got pain medication.
--- NOTE | 2025-02-05 01:57 | PC.NURSE ---
pt educated on plan of care, pt agreed to attempt eating and having repeat lab work drawn w/ provider Jarret Olmstead, pt then stated that she was nauseas and provided sublingual zofran for nausea, pt then stated she was in severe pain. This RN educated the pt that she had already recieved pain medication through her US guided line that was then removed per the pt request after receiving education on the need for the IV line to stay placed due to the possibility of needing more medication and due to the patient being a hard stick w/ multiple attempts made in the ED. pt refusing to eat until pain medications are given, pt stated Bring the doctor in here I want to talk to him , provider Jarret Olmstead made aware
[2025-02-05 04:26] LABS: Blood Urea Nitrogen 8 mg/dL (9-16); Calcium 8.3 mg/dL (8.4-10.2); Creatinine Clr Calc Pharmacy 129.3; Estimated Glomerular Filt Rate > 60
[2025-02-05 04:36] LABS: Anion Gap 24 (12-20); Carbon Dioxide 18 mmol/L (22-29); Chloride 104 mmol/L (96-108); Potassium 3.7 mmol/L (3.3-5.1); Sodium 142 mmol/L (135-145)
[2025-02-05 06:08] VITALS: BP 152/97; PULSE 125; RESP 19; TEMP 37.2; O2SAT 98
[2025-02-05 07:20] VITALS: BP 152/97; PULSE 125; RESP 19; TEMP 37.2; O2SAT 98
== END 2025-02-05 07:28 | disposition home or self-care (01) ==
PROVIDERS: Emergency Medicine Emergency Medical Services; Emergency Provider Emergency Medicine; PCP Internal Medicine
DX: F10.129 Alcohol abuse with intoxication, unspecified (principal); Y90.8 Blood alcohol level of 240 mg/100 ml or more; E87.29 Other acidosis; R00.0 Tachycardia, unspecified; I49.3 Ventricular premature depolarization; R10.9 Unspecified abdominal pain; R11.0 Nausea; Z85.038 Personal history of other malignant neoplasm of large intestine
CPT/HCPCS: 36415; 74176; 80048; 80053; 80307; 81001; 82010; 82272; 82803; 83690; 83735; 85025; 93005; 96361; 96372; 96374; 96375; 96376; 99284; 99285; J1171; J1200; J1790; J2405

== ENCOUNTER → 2025-02-04 18:22 | Outpatient (BNV) | payer OTHER, SELFPAY | PROVIDERS: Emergency Provider Emergency Medicine; PCP Internal Medicine; Visit Provider Internal Medicine Cardiovascular Disease | DX: R00.0 Tachycardia, unspecified (principal); I49.3 Ventricular premature depolarization | CPT/HCPCS: 93010 ==

== ENCOUNTER → 2025-02-04 20:57 | Outpatient (BNV) | payer OTHER, SELFPAY | PROVIDERS: Emergency Provider Emergency Medicine Emergency Medical Services; PCP Internal Medicine; Visit Provider General Practice | DX: R10.84 Generalized abdominal pain (principal) | CPT/HCPCS: 74176 ==